=== PATIENT | male | born 1940 | race Caucasian/White ===

== ENCOUNTER 2016-09-16 16:14 | Emergency (ER) | payer MEDICARE ==
--- NOTE | 2016-09-16 16:27 | Emergency Department Report ---
ED Neuro Deficit HPI - General Chief Complaint: Weakness Stated Complaint: POSS CVA Time Seen by Provider: 09/16/16 16:15 Source: EMS Mode of arrival: Stretcher Limitations: Other - History of Present Illness Initial Comments: Patient is a 76-year-old male with history of CABG, permanent pacemaker, BPH, hypertension, hyperlipidemia presenting today because of possible stroke. Patient was sitting on the couch with family friends and slumped over to the left at 3:30 PM and they called EMS. EMS arrived and noticed that the patient had weakness in his left upper and left lower extremity. Per his family he was speaking at baseline. History here limited due to language barrier. However family had come and endorses patient has only left upper and lower extremity weakness. He has no history of trauma. Patient is on aspirin, but no Plavix or any anticoagulation. -: Sudden, minutes(s) (45 minutes ago) Time: 15:30 Location: left arm, left leg History of same: No Place: home Severity: moderate Quality: weak - Related Data Home Medications: Home Medications Medication Instructions Recorded Confirmed Last Taken Crestor 10 mg PO DAILY 09/16/16 09/16/16 1 Day Ago Dexlansoprazole [Dexilant] 60 mg PO QDAY 09/16/16 09/16/16 1 Day Ago Furosemide [Lasix] 20 mg PO QDAY 09/16/16 09/16/16 1 Day Ago Metformin HCl [Metformin HCl ER] 500 mg PO DAILY 09/16/16 09/16/16 1 Day Ago Metoclopramide HCl [Reglan TAB] 5 mg PO BID 09/16/16 09/16/16 1 Day Ago Omeprazole 40 mg PO DAILY 09/16/16 09/16/16 1 Day Ago Tamsulosin [Flomax] 0.4 mg PO QDAY 09/16/16 09/16/16 1 Day Ago Previous Rx's Medication Instructions Recorded Last Taken Type Aspirin EC [Aspirin Enteric Coated 325 mg PO QDAY #30 tablet 05/19/16 1 Day Ago Rx TAB] AtorvaSTATin [Lipitor] 20 mg PO QHS #30 tablet 05/19/16 1 Day Ago Rx Losartan [Cozaar] 50 mg PO QDAY #30 tablet 05/19/16 1 Day Ago Rx Metoprolol Xl [Metoprolol 50 mg PO QDAY #30 tablet 05/19/16 1 Day Ago Rx SUCCINATE ER TAB] Ranolazine ER [Ranexa ER] 500 mg PO BID #60 tablet 05/19/16 1 Day Ago Rx Allergies/Adverse Reactions: Allergies Allergy/AdvReac Type Severity Reaction Status Date / Time No Known Allergies Allergy Unverified 05/16/16 13:26 ED Review of Systems ROS: Stated complaint: POSS CVA Other details as noted in HPI Comment: All other systems reviewed and negative Constitutional: denies: see HPI, fever Respiratory: denies: cough, shortness of breath Gastrointestinal: denies: abdominal pain, vomiting Skin: denies: rash Psychiatric: denies: anxiety ED Past Medical Hx - Past Medical History Hx Hypertension: Yes Hx Diabetes: Yes Hx GERD: Yes Hx HIV: No Additional medical history: cardiomegaly,elevated cholesterol,enlarged prostate, CAD - Surgical History Hx Open Heart Surgery: Yes (CABG 2006) Additional Surgical History: heart cath 2011. Ejection Fraction LVEF 50% via echo 06/22/15 - Social History Smoking Status: Light Tobacco Smoker Substance Use Type: None - Medications Home Medications: Home Medications Medication Instructions Recorded Confirmed Last Taken Type Aspirin EC [Aspirin Enteric Coated 325 mg PO QDAY #30 tablet 05/19/16 09/16/16 1 Day Ago Rx TAB] AtorvaSTATin [Lipitor] 20 mg PO QHS #30 tablet 05/19/16 09/16/16 1 Day Ago Rx Losartan [Cozaar] 50 mg PO QDAY #30 tablet 05/19/16 09/16/16 1 Day Ago Rx Metoprolol Xl [Metoprolol 50 mg PO QDAY #30 tablet 05/19/16 09/16/16 1 Day Ago Rx SUCCINATE ER TAB] Ranolazine ER [Ranexa ER] 500 mg PO BID #60 tablet 05/19/16 09/16/16 1 Day Ago Rx Crestor 10 mg PO DAILY 09/16/16 09/16/16 1 Day Ago History Dexlansoprazole [Dexilant] 60 mg PO QDAY 09/16/16 09/16/16 1 Day Ago History Furosemide [Lasix] 20 mg PO QDAY 09/16/16 09/16/16 1 Day Ago History Metformin HCl [Metformin HCl ER] 500 mg PO DAILY 09/16/16 09/16/16 1 Day Ago History Metoclopramide HCl [Reglan TAB] 5 mg PO BID 09/16/16 09/16/16 1 Day Ago History Omeprazole 40 mg PO DAILY 09/16/16 09/16/16 1 Day Ago History Tamsulosin [Flomax] 0.4 mg PO QDAY 09/16/16 09/16/16 1 Day Ago History ED Neuro Physical Exam - General General appearance: alert Suspected Stroke: Yes - Head Head exam: Present: atraumatic - Eye Eye exam: Present: normal appearance Pupils: Present: normal accommodation - ENT ENT exam: Present: normal exam - Respiratory Respiratory exam: Present: normal lung sounds bilaterally. Absent: respiratory distress - Cardiovascular Cardiovascular Exam: Present: regular rate, normal rhythm, normal heart sounds - GI/Abdominal GI/Abdominal exam: Present: soft. Absent: distended, tenderness - Neurological Exam Neurological exam: Present: alert, CN II-XII intact, other (Mckay focal neurological deficits are 4 out of 5 strength in the left upper extremity proximally, 3 out of 5 strength in the left lower extremity) - NIHSS Assessment Interval: Baseline 1a. Level of Consciousness: alert 1b. LOC Questions: answers correctly 1c. LOC Commands: performs tasks correctly 2. Best Gaze: normal 3. Visual: no visual loss 4. Facial Palsy: normal symmetrical movement 5b. Motor Arm Right: no drift 5a. Motor Arm Left: some gravity effort 6a. Motor Leg Left: no gravity effort 6b. Motor Leg Right: no drift 7. Limb Ataxia: absent 8. Sensory: mild/moderate sensory loss 9. Best Language: no aphasia 10. Dysarthria: normal 11. Extinction/Inattention: no abnormality Total Score: 6 Stroke Severity: Moderate Stroke - Psychiatric Psychiatric exam: Present: normal affect - Skin Skin exam: Present: intact ED Course Vital Signs 09/16/16 09/16/16 09/16/16 16:31 16:45 17:00 Pulse Rate 68 67 82 Respiratory 16 14 16 Rate Blood Pressure 176/103 136/77 O2 Sat by Pulse 99 99 Oximetry 09/16/16 09/16/16 09/16/16 17:11 17:15 17:30 Pulse Rate 81 83 83 Respiratory 14 14 13 Rate Blood Pressure 133/76 133/76 137/79 O2 Sat by Pulse 97 97 99 Oximetry 09/16/16 09/16/16 17:45 17:49 Pulse Rate 80 83 Respiratory 14 11 L Rate Blood Pressure 150/82 150/82 O2 Sat by Pulse 99 98 Oximetry - Reevaluation(s) Reevaluation #1: 09/16/16 16:40 paged for transfer to neurosurgery at [place] Reevaluation #2: 09/16/16 16:53 Patient is hypertensive to around 190/110, Cardene drip ordered. Reevaluation #3: 09/16/16 16:[address] Hernandez at [facility], they have no neuro ICU beds available, paged transfer center for [facility] Reevaluation #4: 09/16/16 17:[address] Hernandez again, will have a neurosurgical bed available at 7 PM but that they will accept the patient for transfer to [facility]. Blood pressure improved with a systolic of 142. 09/16/16 17:15 Reevaluation #5: 09/16/16 19:02 Patient reassessed at bedside. As no acute changes in his mental status or neurological status. Blood pressure systolic of 151. EMS is here taking report revealed transfer the patient [facility]. - Consultations Consultation #1: 09/16/16 16:26 Spoke to neurologist web production assistant about patient's presentation, is planning to come to the ER to evaluate patient, patient currently in CT - Lab Data Result diagrams: 09/16/16 16:24 09/16/16 16:24 Lab Results 09/16/16 09/16/16 09/16/16 Range/Units 16:10 16:24 16:24 WBC 7.4 (4.5-11.0) K/mm3 RBC 5.90 H (3.65-5.03) M/mm3 Hgb 13.6 (11.8-15.2) gm/dl Hct 42.0 (35.5-45.6) % MCV 71 L (84-94) fl MCH 23 L (28-32) pg MCHC 32 (32-34) % RDW 15.7 H (13.2-15.2) % Plt Count 190 (140-440) K/mm3 Lymph % (Auto) 21.7 (13.4-35.0) % [place] % (Auto) 7.7 H (0.0-7.3) % Eos % (Auto) 3.1 (0.0-4.3) % Baso % (Auto) 0.7 (0.0-1.8) % Lymph # 1.6 (1.2-5.4) K/mm3 [place] # 0.6 (0.0-0.8) K/mm3 Eos # 0.2 (0.0-0.4) K/mm3 Baso # 0.1 (0.0-0.1) K/mm3 Seg Neutrophils % 66.8 (40.0-70.0) % Seg Neutrophils # 4.9 (1.8-7.7) K/mm3 PT 12.9 (12.2-14.9) Sec. INR 0.98 (0.87-1.13) APTT 34.2 (24.2-36.6) Sec. Thrombin Time (15.1-19.6) Sec. Sodium (137-145) mmol/L Potassium (3.6-5.0) mmol/L Chloride (98-107) mmol/L Carbon Dioxide (22-30) mmol/L Anion Gap mmol/L BUN (9-20) mg/dL Creatinine (0.8-1.5) mg/dL Estimated GFR ml/min BUN/Creatinine Ratio % Glucose (75-100) mg/dL Calcium (8.4-10.2) mg/dL Troponin T (0.00-0.029) ng/mL Blood Type B POSITIVE Antibody Screen Negative 09/16/16 09/16/16 Range/Units 16:24 16:24 WBC (4.5-11.0) K/mm3 RBC (3.65-5.03) M/mm3 Hgb (11.8-15.2) gm/dl Hct (35.5-45.6) % MCV (84-94) fl MCH (28-32) pg MCHC (32-34) % RDW (13.2-15.2) % Plt Count (140-440) K/mm3 Lymph % (Auto) (13.4-35.0) % [place] % (Auto) (0.0-7.3) % Eos % (Auto) (0.0-4.3) % Baso % (Auto) (0.0-1.8) % Lymph # (1.2-5.4) K/mm3 [place] # (0.0-0.8) K/mm3 Eos # (0.0-0.4) K/mm3 Baso # (0.0-0.1) K/mm3 Seg Neutrophils % (40.0-70.0) % Seg Neutrophils # (1.8-7.7) K/mm3 PT (12.2-14.9) Sec. INR (0.87-1.13) APTT (24.2-36.6) Sec. Thrombin Time 16.1 (15.1-19.6) Sec. Sodium 141 (137-145) mmol/L Potassium 3.9 (3.6-5.0) mmol/L Chloride 101.8 (98-107) mmol/L Carbon Dioxide 27 (22-30) mmol/L Anion Gap 16 mmol/L BUN 12 (9-20) mg/dL Creatinine 0.7 L (0.8-1.5) mg/dL Estimated GFR > 60 ml/min BUN/Creatinine Ratio 17.14 % Glucose 118 H (75-100) mg/dL Calcium 8.5 (8.4-10.2) mg/dL Troponin T < 0.010 (0.00-0.029) ng/mL Blood Type Antibody Screen - Medical Decision Making Evaluated Immediately at bedside upon patient arrival. There is a high suspicion for stroke. Plan is fingerstick, CT of head without contrast, labs, IV placement, neuro consult, stroke code has been called. CT reveals a right thalamic hemorrhage starting to extend into the right ventricle Critical Care Time: Yes Critical care time in (mins) excluding proc time.: 30 Critical care attestation.: If time is entered above; I have spent that time in minutes in the direct care of this critically ill patient, excluding procedure time. ED Disposition Clinical Impression: Nontraumatic thalamic hemorrhage Disposition: DC/TX SHORT-TERM GEN HOSP INPT Is pt being admited?: No Does the pt Need Aspirin: No Condition: Critical Time of Disposition: 17:15
[2016-09-16 16:33] LABS: INR 0.98 (0.87-1.13)
[2016-09-16 16:34] LABS: Partial Thromboplastin Time 34.2 Sec. (24.2-36.6)
[2016-09-16 16:36] LABS: Anion Gap 16 mmol/L; BUN/Creatinine Ratio 17.14; Basophils % (Auto) 0.7 % (0.0-1.8); Blood Urea Nitrogen 12 mg/dL (9-20); Calcium 8.5 mg/dL (8.4-10.2); Carbon Dioxide 27 mmol/L (22-30); Chloride 101.8 mmol/L (98-107); Eosinophils % (Auto) 3.1 % (0.0-4.3); Glucose 118 mg/dL (75-100); Hemoglobin 13.6 gm/dl (11.8-15.2); Mean Corpuscular HGB Conc 32 % (32-34); Mean Corpuscular Volume 71 fl (84-94); Platelet Count 190 K/mm3 (140-440); Potassium 3.9 mmol/L (3.6-5.0); Red Cell Distribution Width 15.7 % (13.2-15.2); Sodium 141 mmol/L (137-145); White Blood Count 7.4 K/mm3 (4.5-11.0)
[2016-09-16] MEDS ORDERED: CARDENE DRIP 40 MG/200 ML 200 ML ONE (16:38)
--- NOTE | 2016-09-16 16:42 | Cat Scan Report ---
FINAL REPORT EXAM: CT HEAD/BRAIN WO CON HISTORY: neuro deficits < 6hrs or sx present upon awakening , patient slumped over 45 minutes prior to arrival TECHNIQUE: CT examination of the head without IV contrast PRIORS: None. FINDINGS: The included paranasal sinuses are clear as are the mastoid air cells and middle ear cavities. No evidence of fracture or focal osseous lesion. Hyperdense material is suggestive of hemorrhage in the right thalamus with approximate transverse dimensions of a 22 x 30 mm. Margins are irregular. Adjacent slight low density suggestive of edema. There is associated slight mass effect on the posterior aspect of the right basal ganglia and right internal capsule posteriorly. Slight medial displacement of the [place]. Hemorrhage appears to extend from the medial margin into the atrium of the right lateral ventricle. A small amount of ventricular hemorrhage is also noted in the right occipital horn. A small focus of hypodensity in the right caudate head is suggestive of old chronic lacunar infarct. No definite midline shift of the septum pellucidum. Prominent sulci and ventricles is suggestive of global brain atrophy. IMPRESSION: Large right thalamic hemorrhage with suggestion of slight blood extending into the right lateral ventricle. Mass effect on the adjacent right mid brain At the time of the signed report, I discussed the findings over the phone with Dr Elise.
[2016-09-16 16:46] LABS: Mean Corpuscular Hemoglobin 23 pg (28-32)
[2016-09-16] MEDS ORDERED: CARDENE DRIP 40 MG/200 ML 200 ML IV SCH (17:00)
[2016-09-16 19:12] VITALS: BP 143/84
== END 2016-09-16 19:21 | disposition short-term general hospital (02) ==
LOC: ED 16:14
DX: I61.9 Nontraumatic intracerebral hemorrhage, unspecified (principal); E11.9 Type 2 diabetes mellitus without complications; I10 Essential (primary) hypertension; K21.9 Gastro-esophageal reflux disease without esophagitis; E78.00 Pure hypercholesterolemia, unspecified; Z72.0 Tobacco use; Z79.82 Long term (current) use of aspirin; Z95.1 Presence of aortocoronary bypass graft
CPT/HCPCS: 36415; 70450; 80048; 84484; 85025; 85610; 85670; 85730; 86850; 86900; 86901; 96365; 96366

== ENCOUNTER 2016-10-28 06:24 | Emergency (ER) | payer MEDICARE ==
[2016-10-28 07:31] LABS: Anion Gap 18 mmol/L; BUN/Creatinine Ratio 27.77; Blood Urea Nitrogen 25 mg/dL (9-20); Calcium 9.1 mg/dL (8.4-10.2); Carbon Dioxide 25 mmol/L (22-30); Chloride 98.9 mmol/L (98-107); Glucose 128 mg/dL (75-100); Potassium 4.6 mmol/L (3.6-5.0); Sodium 137 mmol/L (137-145)
[2016-10-28 07:43] LABS: Basophils % (Auto) 0.7 % (0.0-1.8); Eosinophils % (Auto) 4.9 % (0.0-4.3); Hematocrit 41.4 % (35.5-45.6); Hemoglobin 13.2 gm/dl (11.8-15.2); Mean Corpuscular HGB Conc 32 % (32-34); Mean Corpuscular Hemoglobin 23 pg (28-32); Mean Corpuscular Volume 72 fl (84-94); Platelet Count 223 K/mm3 (140-440); Red Blood Count 5.77 M/mm3 (3.65-5.03); Red Cell Distribution Width 14.4 % (13.2-15.2); White Blood Count 6.8 K/mm3 (4.5-11.0)
--- NOTE | 2016-10-28 09:29 | Emergency Department Report ---
HPI - General Chief Complaint: Weakness Time Seen by Provider: 10/28/16 08:49 - HPI HPI: Chief complaint: Nausea and feeling weak HPI: Patient is 76-year-old [place] male with a history of coronary artery disease status post CABG 2006, elevated cholesterol, hypertension, diabetes, GERD who was seen here with a hemorrhagic stroke approximately one month ago and was transferred to [facility] and was just discharged yesterday. Patient had a G-tube placed and was getting continuous feedings until he went home. Patient now has been getting bolus feedings and feels nauseated when he gets a bolus feeding. No other symptoms. Language line when she is by the nursing staff to collect information but then a family member appeared who could speak Bulgarian a more accurate history was obtained. Mode of arrival: [EMS] Source: [Patient] [old chart] [family member] Began: See above Duration: See above Context: See above Quality: Pain-free Severity: 0 out of 10 Improved with: Nothing Worsened with: 2 feedings Associated signs and symptoms: Nausea ED Past Medical Hx - Past Medical History Hx Hypertension: Yes Hx Diabetes: Yes Hx GERD: Yes Hx HIV: No Additional medical history: cardiomegaly,elevated cholesterol,enlarged prostate, CAD - Surgical History Hx Open Heart Surgery: Yes (CABG 2006) Additional Surgical History: heart cath 2011. Ejection Fraction LVEF 50% via echo 06/22/15 - Social History Smoking Status: Unknown if ever smoked - Medications Home Medications: Home Medications Medication Instructions Recorded Confirmed Last Taken Type Aspirin EC [Aspirin Enteric Coated 325 mg PO QDAY #30 tablet 05/19/16 09/16/16 1 Day Ago Rx TAB] AtorvaSTATin [Lipitor] 20 mg PO QHS #30 tablet 05/19/16 09/16/16 1 Day Ago Rx Losartan [Cozaar] 50 mg PO QDAY #30 tablet 05/19/16 09/16/16 1 Day Ago Rx Metoprolol Xl [Metoprolol 50 mg PO QDAY #30 tablet 05/19/16 09/16/16 1 Day Ago Rx SUCCINATE ER TAB] Ranolazine ER [Ranexa ER] 500 mg PO BID #60 tablet 05/19/16 09/16/16 1 Day Ago Rx Crestor 10 mg PO DAILY 09/16/16 09/16/16 1 Day Ago History Dexlansoprazole [Dexilant] 60 mg PO QDAY 09/16/16 09/16/16 1 Day Ago History Furosemide [Lasix] 20 mg PO QDAY 09/16/16 09/16/16 1 Day Ago History Metformin HCl [Metformin HCl ER] 500 mg PO DAILY 09/16/16 09/16/16 1 Day Ago History Metoclopramide HCl [Reglan TAB] 5 mg PO BID 09/16/16 09/16/16 1 Day Ago History Omeprazole 40 mg PO DAILY 09/16/16 09/16/16 1 Day Ago History Tamsulosin [Flomax] 0.4 mg PO QDAY 09/16/16 09/16/16 1 Day Ago History ED Review of Systems ROS: Stated complaint: WEAKNESS Other details as noted in HPI Comment: Unobtainable due to pts medical conditions (language barrier) Physical Exam - Physical Exam Vital Signs: Vital Signs 10/28/16 10/28/16 06:49 08:58 Temperature 98.3 F Pulse Rate 74 73 Respiratory 18 16 Rate Blood Pressure 107/63 117/72 [Right] O2 Sat by Pulse 96 100 Oximetry Physical Exam: GENERAL: The patient is a thin [place] elderly male. HEENT: Normocephalic. Atraumatic. Extraocular motions are intact. Patient has moist mucous membranes. NECK: Supple. No meningitic signs are noted. There is no adenopathy noted. CHEST/LUNGS: Clear to auscultation. There is no respiratory distress noted. HEART/CARDIOVASCULAR: Regular. There is no tachycardia. There is no gallop rub or murmur. ABDOMEN: Abdomen is soft, nontender. Patient has normal bowel sounds. There is no abdominal distention. G-tube in place. SKIN: There is no rash. There is no edema. There is no diaphoresis. NEURO: The patient is awake, alert. The patient is cooperative. The patient has mild left hemiparesis. The patient speaks some broken Bulgarian. MUSCULOSKELETAL: There is no tenderness or deformity. There is no evidence of acute injury. ED Course Vital Signs 10/28/16 10/28/16 06:49 08:58 Temperature 98.3 F Pulse Rate 74 73 Respiratory 18 16 Rate Blood Pressure 107/63 117/72 [Right] O2 Sat by Pulse 96 100 Oximetry ED Medical Decision Making - Lab Data Result diagrams: 10/28/16 06:58 10/28/16 06:58 Laboratory Tests 10/28/16 06:58 Calcium 9.1 Troponin T < 0.010 NT-Pro-B Natriuret Pep 435.5 - EKG Data -: EKG Interpreted by Me EKG shows normal: sinus rhythm Rate: normal (67) - EKG Data When compared to previous EKG there are: no significant change Interpretation: other (first-degree AV block, anterior lateral T-wave inversions seen on previous EKGs) Critical care attestation.: If time is entered above; I have spent that time in minutes in the direct care of this critically ill patient, excluding procedure time. ED Disposition Clinical Impression: G tube feedings Vomiting Qualifiers: Vomiting Intractability: unspecified Nausea presence: unspecified Disposition: DISCHARGED TO HOME OR SELFCARE Is pt being admited?: No Does the pt Need Aspirin: No Condition: Stable Instructions: How to Use and Care for Your PEG Tube (ED), Acute Nausea and Vomiting (ED), Tube Feeding (ED) Referrals: PRIMARY CARE, [Primary Care Provider] - 3-5 Days Time of Disposition: 09:29 Print Language: AUSTRALIAN
--- NOTE | 2016-10-28 09:42 | XRay Report ---
G-TUBE STUDY History: Vomiting. Findings: AP beaver trapper radiograph of the abdomen demonstrates a PEG tube in the left upper quadrant and an unremarkable bowel gas pattern. A second image was obtained following injection of oral contrast through the PEG tube. Contrast outlines the stomach and proximal duodenum. There is no obvious mass or obstruction. No extravasation. Impression: Unremarkable exam. The PEG tube terminates in the stomach and demonstrates no obvious abnormality.
--- NOTE | 2016-10-28 09:51 | XRay Report ---
AP CHEST: HISTORY: Weakness Compared to 05/17/16. CABG changes are again noted. Heart size and pulmonary vascularity remain at the upper limits of normal. The lungs are clear. The thoracic cage is intact. Circular radiopaque object measuring approximately 3 cm overlies the epigastric region. This appears to be external to the patient. IMPRESSION: No acute cardiopulmonary process.
[2016-10-28 10:26] VITALS: BP 116/75
== END 2016-10-28 11:25 | disposition home or self-care (01) ==
LOC: ED 06:24
DX: R11.10 Vomiting, unspecified (principal); I10 Essential (primary) hypertension; E11.9 Type 2 diabetes mellitus without complications; K21.9 Gastro-esophageal reflux disease without esophagitis; E78.00 Pure hypercholesterolemia, unspecified; I25.10 Atherosclerotic heart disease of native coronary artery without angina pectoris; Z93.1 Gastrostomy status; Z95.1 Presence of aortocoronary bypass graft
CPT/HCPCS: 36415; 71010; 74000; 80048; 83880; 84484; 85025; 93005; 93010; 99285; Q9963

== ENCOUNTER 2016-12-07 04:29 | Inpatient (IN) | payer MEDICARE ==
--- NOTE | 2016-12-07 06:28 | Emergency Department Report ---
ED General Adult HPI - General Chief complaint: Upper Respiratory Infection Stated complaint: DIFFICULTY BREATHING Time Seen by Provider: 12/07/16 06:21 Source: EMS Mode of arrival: Stretcher Limitations: No Limitations - History of Present Illness Initial comments: 76-year-old male presents to emergency department complaining of chest pain and difficulty breathing. Patient describes a pain in the lower center of his chest. He is unable to describe this pain. Pain does not radiate. He states the pain has been present for approximately 3 months. He also reports cough productive of yellow sputum. There has been no fever, nausea, or vomiting. There are no other complaints. -: Gradual, month(s) (3) Location: chest Radiation: non-radiation Severity scale (0 -10): 3 Consistency: constant Improves with: none Worsens with: none Associated Symptoms: cough, shortness of breath Treatments Prior to Arrival: none - Related Data Previous Rx's Medication Instructions Recorded Last Taken Type ALBUTEROL NEB's [Proventil 0.083% 2.5 mg IH Q4HRT PRN #1 nebu 12/04/16 Unknown Rx NEBS] Aspirin EC [Aspirin Enteric Coated 325 mg PO QDAY #30 tablet 12/04/16 Unknown Rx TAB] AtorvaSTATin [Lipitor] 20 mg PO QHS #30 tablet 12/04/16 Unknown Rx Dexlansoprazole [Dexilant] 60 mg PO QDAY #30 cap.bp 12/04/16 Unknown Rx Furosemide [Lasix TAB] 40 mg PO QDAY #30 tablet 12/04/16 Unknown Rx ISOSORBIDE MONOnitrate [Imdur ER] 30 mg PO DAILY #30 tab.er.24h 12/04/16 Unknown Rx Losartan [Cozaar] 50 mg PO QDAY #30 tablet 12/04/16 Unknown Rx Metformin HCl [Metformin HCl ER] 500 mg PO DAILY #60 [id number] 12/04/16 Unknown Rx Metoclopramide HCl [Reglan TAB] 5 mg PO BID #60 tablet 12/04/16 Unknown Rx Metoprolol Xl [Metoprolol 50 mg PO QDAY #30 tablet 12/04/16 Unknown Rx SUCCINATE ER TAB] Omeprazole 40 mg PO DAILY #30 capsule. 12/04/16 Unknown Rx Potassium Chloride [K-Dur] 10 meq PO QDAY #30 tablet 12/04/16 Unknown Rx Ranolazine ER [Ranexa ER] 500 mg PO BID #60 tablet 12/04/16 Unknown Rx Tamsulosin [Flomax] 0.4 mg PO QDAY #30 capsule 12/04/16 Unknown Rx predniSONE [Deltasone] 20 mg PO QDAY #10 tablet 12/04/16 Unknown Rx Allergies Allergy/AdvReac Type Severity Reaction Status Date / Time No Known Allergies Allergy Unverified 05/16/16 13:26 ED Review of Systems ROS: Stated complaint: DIFFICULTY BREATHING Other details as noted in HPI Comment: All other systems reviewed and negative Respiratory: cough, shortness of breath Cardiovascular: chest pain ED Past Medical Hx - Past Medical History Previous Medical History?: Yes Hx Hypertension: Yes Hx CVA: Yes Hx Diabetes: Yes Hx GERD: Yes Hx HIV: No Additional medical history: cardiomegaly,elevated cholesterol,enlarged prostate, CAD - Surgical History Past Surgical History?: Yes Hx Open Heart Surgery: Yes (CABG 2006) Hx Internal Defibrillator: Yes Additional Surgical History: heart cath 2011. Ejection Fraction LVEF 50% via echo 06/22/15 - Family History Family history: no significant - Social History Smoking Status: Unknown if ever smoked Substance Use Type: None - Medications Home Medications: Home Medications Medication Instructions Recorded Confirmed Last Taken Type ALBUTEROL NEB's [Proventil 0.083% 2.5 mg IH Q4HRT PRN #1 nebu 12/04/16 Unknown Rx NEBS] Aspirin EC [Aspirin Enteric Coated 325 mg PO QDAY #30 tablet 12/04/16 Unknown Rx TAB] AtorvaSTATin [Lipitor] 20 mg PO QHS #30 tablet 12/04/16 Unknown Rx Dexlansoprazole [Dexilant] 60 mg PO QDAY #30 [id number] 12/04/16 Unknown Rx Furosemide [Lasix TAB] 40 mg PO QDAY #30 tablet 12/04/16 Unknown Rx ISOSORBIDE MONOnitrate [Imdur ER] 30 mg PO DAILY #30 tab.er.24h 12/04/16 Unknown Rx Losartan [Cozaar] 50 mg PO QDAY #30 tablet 12/04/16 Unknown Rx Metformin HCl [Metformin HCl ER] 500 mg PO DAILY #60 [id number] 12/04/16 Unknown Rx Metoclopramide HCl [Reglan TAB] 5 mg PO BID #60 tablet 12/04/16 Unknown Rx Metoprolol Xl [Metoprolol 50 mg PO QDAY #30 tablet 12/04/16 Unknown Rx SUCCINATE ER TAB] Omeprazole 40 mg PO DAILY #30 capsule. 12/04/16 Unknown Rx Potassium Chloride [K-Dur] 10 meq PO QDAY #30 tablet 12/04/16 Unknown Rx Ranolazine ER [Ranexa ER] 500 mg PO BID #60 tablet 12/04/16 Unknown Rx Tamsulosin [Flomax] 0.4 mg PO QDAY #30 capsule 12/04/16 Unknown Rx predniSONE [Deltasone] 20 mg PO QDAY #10 tablet 12/04/16 Unknown Rx ED Physical Exam - General Limitations: No Limitations General appearance: alert, in no apparent distress - Head Head exam: Present: atraumatic, normocephalic - Eye Eye exam: Present: normal appearance, PERRL, EOMI - ENT ENT exam: Present: normal exam, normal orophraynx, mucous membranes moist - Neck Neck exam: Present: normal inspection, full ROM. Absent: tenderness - Respiratory Respiratory exam: Present: normal lung sounds bilaterally. Absent: respiratory distress - Cardiovascular Cardiovascular Exam: Present: regular rate, normal rhythm, normal heart sounds - GI/Abdominal GI/Abdominal exam: Present: soft, normal bowel sounds. Absent: distended, tenderness - Extremities Exam Extremities exam: Present: normal inspection, full ROM. Absent: tenderness - Back Exam Back exam: Present: normal inspection, full ROM. Absent: tenderness - Neurological Exam Neurological exam: Present: alert, oriented X3. Absent: motor sensory deficit - Skin Skin exam: Present: warm, dry, intact ED Course Vital Signs 12/07/16 12/07/16 12/07/16 04:36 04:40 04:45 Temperature Pulse Rate 80 78 Respiratory 13 16 Rate Blood Pressure 87/58 96/59 Blood Pressure [Left] O2 Sat by Pulse 97 98 97 Oximetry 12/07/16 12/07/16 05:00 07:43 Temperature 97.7 F Pulse Rate 83 79 Respiratory 16 16 Rate Blood Pressure 104/61 Blood Pressure 96/60 [Left] O2 Sat by Pulse 99 96 Oximetry ED Medical Decision Making - Lab Data Result diagrams: 12/07/16 06:38 12/07/16 06:38 - EKG Data -: EKG Interpreted by [facility] EKG shows normal: sinus rhythm, axis, intervals, QRS complexes Rate: normal - EKG Data When compared to previous EKG there are: changes noted Interpretation: other (new T-wave inversions in leads 1, aVL, V3, V4, V5, and V6 when compared to old ECG dated 11/28/2016) - Radiology Data Radiology results: image reviewed interpreted by me: Chest x-ray shows no acute cardiopulmonary abnormality. - Medical Decision Making Lab and imaging results reviewed and discussed with the patient. Patient does have EKG changes compared to previous. I spoke with Dr. Hernandez, cardiology. Patient is to be admitted by the hospitalist for observation and further management. - Differential Diagnosis atypical chest pain, pneumonia, bronchitis, CHF Critical care attestation.: If time is entered above; I have spent that time in minutes in the direct care of this critically ill patient, excluding procedure time. ED Disposition Clinical Impression: Ischemic cardiomyopathy Disposition: OP ADMITTED IP TO THIS HOSP Is pt being admited?: Yes Condition: Stable Referrals: CRIS CAMEJO MD [Primary Care Provider] - 3-5 Days Time of Disposition: 08:40
[2016-12-07 06:50] LABS: Basophils % (Auto) 0.4 % (0.0-1.8); Eosinophils % (Auto) 1.9 % (0.0-4.3); Hematocrit 39.5 % (35.5-45.6); Hemoglobin 12.7 gm/dl (11.8-15.2); Mean Corpuscular HGB Conc 32 % (32-34); Mean Corpuscular Volume 71 fl (84-94); Platelet Count 221 K/mm3 (140-440); Red Blood Count 5.55 M/mm3 (3.65-5.03); Red Cell Distribution Width 15.7 % (13.2-15.2); White Blood Count 10.4 K/mm3 (4.5-11.0)
[2016-12-07 06:57] LABS: Mean Corpuscular Hemoglobin 23 pg (28-32)
[2016-12-07 07:13] LABS: Alanine Aminotransferase 17 units/L (7-56); Albumin/Globulin Ratio 1.3 %; BUN/Creatinine Ratio 32.85; Bilirubin,Total 0.4 mg/dL (0.1-1.2); Blood Urea Nitrogen 23 mg/dL (9-20); Calcium 8.5 mg/dL (8.4-10.2); Carbon Dioxide 30 mmol/L (22-30); Glucose 117 mg/dL (75-100); Total Protein 5.3 g/dL (6.3-8.2)
[2016-12-07 07:14] LABS: Anion Gap 10 mmol/L; Chloride 98.5 mmol/L (98-107); Potassium 3.8 mmol/L (3.6-5.0); Sodium 135 mmol/L (137-145)
--- NOTE | 2016-12-07 08:16 | XRay Report ---
AP CHEST: HISTORY: chest pain AP view of the chest demonstrates a normal mediastinal and cardiac contour with clear lungs and normal bony and soft tissue structures. CABG changes are noted. IMPRESSION: No acute cardiopulmonary process.
[2016-12-07 08:36] LABS: Alkaline Phosphatase 49 units/L (35-129)
--- NOTE | 2016-12-07 08:41 | History and Physical Report ---
History of Present Illness Date of examination: 12/07/16 Date of admission: 12/07/16 Chief complaint: Left Sided chest pain and shortness of breath History of present illness: Very pleasant 76-year-old male patient well known to us services multiple admissions in the past recently discharged presented to the emergency room with worsening shortness of breath and atypical chest pain since last night Patient also complains of mild productive cough, denies hemoptysis Pain sometimes radiates to left shoulder Past History Past Medical History: CAD, COPD, diabetes, GERD, hypertension, hyperlipidemia Past Surgical History: CABG, Other (AICD) Social history: lives with family, full code. denies: smoking, alcohol abuse, prescription drug abuse Family history: hypertension Medications and Allergies Allergies Allergy/AdvReac Type Severity Reaction Status Date / Time No Known Allergies Allergy Unverified 05/16/16 13:26 Home Medications Medication Instructions Recorded Confirmed Last Taken Type ALBUTEROL NEB's [Proventil 0.083% 2.5 mg IH Q4HRT PRN #1 nebu 12/04/16 Unknown Rx NEBS] Aspirin EC [Aspirin Enteric Coated 325 mg PO QDAY #30 tablet 12/04/16 Unknown Rx TAB] AtorvaSTATin [Lipitor] 20 mg PO QHS #30 tablet 12/04/16 Unknown Rx Dexlansoprazole [Dexilant] 60 mg PO QDAY #30 cap.bp 12/04/16 Unknown Rx Furosemide [Lasix TAB] 40 mg PO QDAY #30 tablet 12/04/16 Unknown Rx ISOSORBIDE MONOnitrate [Imdur ER] 30 mg PO DAILY #30 tab.er.24h 12/04/16 Unknown Rx Losartan [Cozaar] 50 mg PO QDAY #30 tablet 12/04/16 Unknown Rx Metformin HCl [Metformin HCl ER] 500 mg PO DAILY #60 [id number] 12/04/16 Unknown Rx Metoclopramide HCl [Reglan TAB] 5 mg PO BID #60 tablet 12/04/16 Unknown Rx Metoprolol Xl [Metoprolol 50 mg PO QDAY #30 tablet 12/04/16 Unknown Rx SUCCINATE ER TAB] Omeprazole 40 mg PO DAILY #30 capsule. 12/04/16 Unknown Rx Potassium Chloride [K-Dur] 10 meq PO QDAY #30 tablet 12/04/16 Unknown Rx Ranolazine ER [Ranexa ER] 500 mg PO BID #60 tablet 12/04/16 Unknown Rx Tamsulosin [Flomax] 0.4 mg PO QDAY #30 capsule 12/04/16 Unknown Rx predniSONE [Deltasone] 20 mg PO QDAY #10 tablet 12/04/16 Unknown Rx Review of Systems Constitutional: weakness, no weight loss, no weight gain, no fever, no chills Eyes: bilateral: blurred vision (no blurring of vision), photophobia ( photophobia) Ears, nose, mouth and throat: no nasal congestion, no nasal discharge Cardiovascular: chest pain, orthopnea, lightheadedness, shortness of breath, no palpitations Respiratory: shortness of breath, no cough with sputum Gastrointestinal: no abdominal pain, no nausea, no vomiting Genitourinary Male: no dysuria, no hematuria Musculoskeletal: no myalgias, no arthritis Integumentary: no rash, no lesions Neurological: no weakness, no numbness, no syncope Psychiatric: no anxiety, no depression Endocrine: no cold intolerance, no heat intolerance, no polydipsia, no polyuria Hematologic/Lymphatic: no easy bruising, no easy bleeding Allergic/Immunologic: no urticaria, no allergic rhinitis Exam - Constitutional Vitals: Temp Pulse Resp BP Pulse Ox 97.7 F 79 16 96/60 96 12/07/16 05:00 12/07/16 07:43 12/07/16 07:43 12/07/16 07:43 12/07/16 07:43 General appearance: Present: no acute distress, cachectic - EENT Eyes: Present: PERRL, EOM intact ENT: hearing intact, clear oral mucosa - Neck Neck: Present: supple, normal ROM - Respiratory Respiratory effort: normal Respiratory: bilateral: diminished, rales, rhonchi - Cardiovascular Rhythm: regular Heart Sounds: Present: S1 & S2 - Extremities Extremities: no ischemia, pulses intact, pulses symmetrical Extremity abnormal: edema Peripheral Pulses: within normal limits - Abdominal General gastrointestinal: Present: soft, non-tender, non-distended, normal bowel sounds - Integumentary Integumentary: Present: clear, warm - Musculoskeletal Musculoskeletal: strength equal bilaterally - Psychiatric Psychiatric: appropriate mood/affect, cooperative - Neurologic Neurologic: moves all extremities Results - Labs CBC & Chem 7: 12/07/16 06:38 12/07/16 06:38 Labs: Abnormal lab results 12/07/16 12/07/16 Range/Units 06:38 06:38 RBC 5.55 H (3.65-5.03) M/mm3 MCV 71 L (84-94) fl MCH 23 L (28-32) pg RDW 15.7 H (13.2-15.2) % Seg Neutrophils % 75.2 H (40.0-70.0) % Seg Neutrophils # 7.8 H (1.8-7.7) K/mm3 Sodium 135 L (137-145) mmol/L BUN 23 H (9-20) mg/dL Creatinine 0.7 L (0.8-1.5) mg/dL Glucose 117 H (75-100) mg/dL Total Protein 5.3 L (6.3-8.2) g/dL Albumin 3.0 L (3.9-5) g/dL Assessment and Plan --Chest chest pain rule out acute coronary syndrome Specific probably secondary to gastroesophageal reflux disease However rule out acute coronary syndrome Resume home medications closely monitor cardiology consultation --Coronary artery disease status post CABG Continue antiplatelets beta blockers SAFIA inhibitor snacked it statins and Morphine, serial cardiac enzymes and EKG --Gastroesophageal reflux disease Oral Protonix --Type 2 diabetes mellitus Accu-Chek sliding scale coverage and ADA diet and insulin as needed --History of AICD placement Supportive care --Ischemic cardiomyopathy Systolic dysfunction, ejection fraction 15-20% Continue failure medications, input-output monitoring Daily weights -- COPD Oxygen nebulizers and supportive care --Moderate protein calorie malnutrition Nutrition supplements and supportive care --DVT prophylaxis With Lovenox --Full CODE STATUS Full closely monitor the patient adjust the management as needed Plan of care discussed with the patient, ER physician as well as the nurse
[2016-12-07] MEDS ORDERED: TYLENOL PO PRN (08:45)
[2016-12-07] MEDS ORDERED: PROVENTIL IH PRN (09:00)
--- NOTE | 2016-12-07 09:41 | Admit Criteria Form ---
Admission Criteria Documentation: CARDIOLOGY GRG Clinical Indications for Admission to Inpatient Care ( Place 'X' for any and all applicable criteria): Hospital admission is needed for appropriate care of the patient because of ANY ONE of the following (1): [ ] I. Hemodynamic instability as indicated by ALL of the following (1)(2)(3) (4)(5) [ ]a) Vital signs or other findings not as expected for chronic patient condition or baseline [ ]b) Instability indicated by ANY ONE of the following: [ ]i) Hypotension [ ]ii) Symptomatic Tachycardia unresponsive to treatment ( e.g., analgesia, fluids, sedation as indicated) [ ]iii) Inadequate perfusion indicated by ANY ONE of the following: [ ] 1) Lactic acidosis (> 2 mmol/L) [ ] 2) New abnormal capillary refill (> 3 seconds) [ ] 3) Reduced urine output [ ] 4) New altered mental status [ ]iv) Orthostatic vital sign changes unresponsive to treatment (e.g., fluids) [ ]v) IV inotropic or vasopressor medication required to maintain adequate blood pressure or perfusion [ ] II. Severe heart failure as indicated by ANY ONE of the following(17)(18) [ ]a) Respiratory distress [ ]b) Hypotension [ ]c) Anasarca (refractory to outpatient therapy) [ ]d) Cardiac arrhythmias of immediate concern [ ]e) Myocardial ischemia [ ] III. Cardiac arrhythmias or findings of immediate concern indicated by ANY ONE of the following (19)(20): [ ] a) Heart rhythms that are inherently dangerous or unstable indicated by ANY ONE of the following (21)(22)(23): [ ] i) Resuscitated ventricular fibrillation or cardiac arrest [ ] ii) Ventricular escape rhythm [ ] iii) Sustained ventricular tachycardia (30 seconds or more of ventricular rhythm at greater than 100 beats per minute) [ ] iv) Nonsustained ventricular tachycardia and ANY ONE of the following: [ ] 1) Suspected cardiac ischemia as cause or consequence of ventricular tachycardia [ ] 2) In setting of acute myocarditis [ ] b) Unstable cardiac conduction defects indicated by ANY ONE of the following(23)(24)(25) [ ] i) Type II second-degree atrioventricular block [ ]ii) Third-degree atrioventricular block [ ]iii) New-onset left bundle branch block with suspected myocardial ischemia [ ]c) Any heart rhythm and ANY ONE of the following (21)(22)(26)(27) (28) [ ] i) Continuous long-term ECG monitoring needed (e.g., initiation of drug requiring monitoring for more than 24 hours) [ ] ii) Patient has automatic implanted cardioverter defibrillator that is repeatedly firing, malfunctioning, or in need of immediate adjustment of settings beyond the scope of ambulatory or observation care [ ]d) Heart rhythms of concern due to ANY ONE of the following: [ ] i) Hypotension [ ] ii) Respiratory distress [ ] iii) Association with other significant symptoms (e.g., bradycardia with syncope or ongoing dizziness, supraventricular tachycardia with chest pain (14)(15)(17) [ ] IV. Monitoring for cardiac contusion beyond the scope of observation care needed [A](30)(31)(32) [ ] V. Surgical or device complication (e.g., valve replacement complication , pacemaker dysfunction) (35)(41)(44)(45)(46) [ ] . Inpatient palliative care needed. [B](49) Also use Inpatient Palliative Care Criteria [ ] VII. Nonbacterial thrombotic (marantic) endocarditis (36)(43)(47)(48) [X ] VIII. Cardiology condition, symptom, or finding for which emergency and observation care has failed or are not considered appropriate. [ ] IX. Acute valvular disease requiring inpatient as indicated by ANY ONE of the following (41) [ ]a) Acute valvular regurgitation (42) [ ]b) Noninfectious valvulitis (43) [ ]c) Obstructive valve thrombosis [ ]d) Paravalvular leak [ ]e) Other significant valvular disorder remaining after emergency or observation level of care (as appropriate) [ ]X. Pericardial disease requiring inpatient treatment as indicated by ANY ONE of the following (33)(34)(35)(36)(37) [ ]a) Suspected tamponade (38)(39)(40) [ ]b) Hemopericardium [ ]c) Other significant pericardial disorder remaining after emergency or observation level of care (as appropriate) [ ] XI. Cardiac ischemia beyond scope of emergency and observation care. [ ] XII. Hypertension requiring inpatient treatment as indicated by ANY ONE of the following (6)(7)(8) [ ]a) SBP greater than 220 mm Hg or DBP greater than 120 mmHg despite treatment [ ]b) SBP greater than 140 mm Hg or DBP greater than 100 mm Hg with evidence of acute end organ damage as indicated by ANY ONE of the following [ ] i) Altered mental status [ ] ii) Acute renal failure as indicated by new onset of ANY ONE of the following (9)(10)(11)(12)(13) [ ]1) 3-fold rise in serum creatinine from baseline [ ]2) Serum creatinine greater than 4 mg/dL ( 354 micromoles/L) with acute rise greater than 0.5 mg/dL (44.2 micromoles/L) [ ]3) Reduction of more than 75% in estimated glomerular filtration rate from baseline [ ]4) Estimated glomerular filtration rate less than 35 mL/min/1.73m2 (0.59 mL/sec/1.73m2) in child up to 18 years of age [ ]5) Cessation of urine output indicated by ALL of the following [ ]A. Adequate volume status [ ]B. Inadequate urine output as indicated by ANY ONE of the following [ ]a. Urine output less than 0.3 mL/kg/hr for 24 hours [ ]b. Anuria (urine output less than 0.1 mL/kg/hr) for 12 hours [ ] iii) Aortic dissection [ ] iv) Myocardial Ischemia [ ] v) Left ventricular heart failure [ ]vi) Retinal Hemorrhage [ ]vii) Other significant finding [ ]c) Hypertension in child requiring inpatient treatment as indicated by ALL of the following(14)(15)(16) [ ] i) Outpatient treatment not effective, not available, or not appropriate [ ]ii) SBP or DBP greater than 95th percentile for age [ ]iii) Evidence of acute end organ damage as indicated by ANY ONE of the following [ ]1) Altered mental status [ ]2) Acute renal failure as indicated by new onset of ANY ONE of the following(9)(10)(11)(12)(13) [ ]A. 3-fold rise in serum creatinine from baseline [ ]B. Serum creatinine greater than 4 mg/dL (354 micromoles/L) with acute rise greater than 0.5 mg/dL (44.2 micromoles/L) [ ]C. Reduction of more than 75% in estimated glomerular filtration rate from baseline [ ]D. Estimated glomerular filtration rate less than 35 mL/min/1.73m2 (0.59 mL/sec/1.73m2) in child up to 18 years of age [ ]E. Cessation of urine output indicated by ALL of the following [ ]a. Adequate volume status [ ]b. Inadequate urine output as indicated by ANY ONE of the following [ ]i) Urine output less than 0.3 mL/kg/hr for 24 hours [ ]ii) Anuria ( urine output less than 0.1 mL/kg/hr) for 12 hours [ ]3) Severe headache [ ]4) Visual disturbance [ ]5) Retinal hemorrhage [ ]6) Other significant finding [ ]XIII. Complications of transplanted heart indicated by ANY ONE of the following(61): [ ]a) Acute graft rejection requiring inpatient management (eg, intravenous immunosuppression)(62)(63) [ ]b) Acute graft heart failure indicated by ANY ONE of the following(64): [ ]i) Hemodynamic instability [ ]ii) Cardiac arrhythmias of immediate concern [ ]iii) Pulmonary edema that is very severe (eg, mechanical ventilation needed, imminent or likely, need for 100% oxygen to keep oxygen saturation above 90%) [ ]iv) Pulmonary edema that is persistent as indicated by ALL of the following: [ ]1) New need for oxygen therapy to keep oxygen saturation above 90% (or increased FiO2 need from baseline) [ ]2) Has not improved sufficiently with emergency department or observation care IV diuretics or other heart failure treatments[E] [ ]v) Altered mental status that is severe or persistent [ ]vi) Increased creatinine (new on laboratory test) with reduction of more than 50% in estimated glomerular filtration rate from baseline [ ]vii) Progressively (ongoing) rising creatinine (known from past laboratory test) with reduction of more than 25% in estimated glomerular filtration rate from baseline [ ]viii) Acute renal failure [ ]ix) Acute peripheral ischemia (eg, examination shows pulseless, cool, mottled, or cyanotic extremity) [ ]x) Pulmonary artery catheter monitoring needed [ ]xi) Other sign or symptom of heart failure requiring inpatient treatment (ie, too severe or not responsive to outpatient and observation care treatment) [ ]c) Infection requiring inpatient management (eg, Hemodynamic instability, need for intravenous antimicrobial treatment)(66)(67)(68)(69)(70) [ ]d) Cardiac allograft vasculopathy requiring inpatient management ( eg evidence of cardiac ischemia)(71) [ ]e) Other complication of transplanted heart (eg, stroke, severe pulmonary hypertension, severe valvular dysfunction) requiring inpatient management(72) The original [facility] [employer] content created by [email or web address] has been revised. The portions of the content which have been revised are identified through the use of italic text or in bold, and [facility] has neither reviewed nor approved the modified material. All other unmodified content is copyright [facility] [email or web address]. Please see references footnoted in the original [facility] [email or web address] edition 2016 Admission Criteria Met: Yes
[2016-12-07] MEDS: ECOTRIN PO SCH (10:31)
[2016-12-07] MEDS: PEPCID PO SCH ×2 (10:31→21:38)
[2016-12-07] MEDS: DELTASONE PO SCH (10:31)
[2016-12-07] MEDS: COZAAR PO SCH (10:33)
[2016-12-07] MEDS: IMDUR PO SCH (10:34)
[2016-12-07] MEDS: TOPROL XL PO SCH (10:35)
[2016-12-07] MEDS: LOVENOX SUB-Q SCH (10:36)
[2016-12-07] MEDS: RANEXA ER PO SCH ×2 (11:33→21:37)
[2016-12-07] MEDS: FLOMAX PO SCH (11:33)
[2016-12-07] MEDS: LASIX IV SCH (11:33)
[2016-12-07] MEDS: K-DUR PO SCH (11:33)
[2016-12-07] MEDS: NOVOLOG SUB-Q SCH (12:43)
[2016-12-07 13:13] LABS: Creatine Kinase MB 2.9 ng/mL (0.0-4.0)
[2016-12-07 13:14] LABS: Creatine Kinase 59 units/L (55-170)
[2016-12-07] MEDS ORDERED: NACL 0.9% 250ML 250 ML IV ONE (14:11)
--- NOTE | 2016-12-07 14:13 | Consultation ---
History of Present Illness Consult date: 12/07/16 Consult reason: chest pain, other (Abnormal ECG) History of present illness: This is a 76-year-old Portuguese male who speaks little Polish. He has an extensive history of coronary artery disease and ischemic cardiomyopathy. In 2007, he underwent three-way coronary artery bypass. A left internal mammary artery graft was placed to the LAD, and a sequential saphenous vein graft to the mid obtuse marginal and the posterior left ventricular branch of the circumflex system. Since his bypass graft, he has had multiple cardiac catheterizations in 2007, 2009 and most recently May 2016. All 3 bypass grafts have remained patent , and he is on medical therapy for small vessel coronary disease. Ejection fraction 25-30%. He presents with chest pain, shortness of breath with coughs and congestion. Chest x-ray reports no acute cardiopulmonary process. His ECG shows a sinus rhythm with nonspecific ST and T wave abnormalities. No significant changes when compared to prior ECG done May 2016. Patient resting in bed and appears comfortably. Cardiac consultation requested for chest pain and abnormal ECG. Past History Past Medical History: CAD, COPD, diabetes, GERD, hypertension, hyperlipidemia Past Surgical History: CABG, Other (AICD) Social history: lives with family, full code. denies: smoking, alcohol abuse, prescription drug abuse Family history: hypertension Medications and Allergies Allergies Allergy/AdvReac Type Severity Reaction Status Date / Time No Known Allergies Allergy Unverified 05/16/16 13:26 Home Medications Medication Instructions Recorded Confirmed Last Taken Type ALBUTEROL NEB's [Proventil 0.083% 2.5 mg IH Q4HRT PRN #1 nebu 12/04/16 Unknown Rx NEBS] Aspirin EC [Aspirin Enteric Coated 325 mg PO QDAY #30 tablet 12/04/16 Unknown Rx TAB] AtorvaSTATin [Lipitor] 20 mg PO QHS #30 tablet 12/04/16 Unknown Rx Dexlansoprazole [Dexilant] 60 mg PO QDAY #30 pramod.bp 12/04/16 Unknown Rx Furosemide [Lasix TAB] 40 mg PO QDAY #30 tablet 12/04/16 Unknown Rx ISOSORBIDE MONOnitrate [Imdur ER] 30 mg PO DAILY #30 tab.er.24h 12/04/16 Unknown Rx Losartan [Cozaar] 50 mg PO QDAY #30 tablet 04/03/17 Unknown Rx Metformin HCl [Metformin HCl ER] 500 mg PO DAILY #60 [id number] 12/04/16 Unknown Rx Metoclopramide HCl [Reglan TAB] 5 mg PO BID #60 tablet 12/04/16 Unknown Rx Metoprolol Xl [Metoprolol 50 mg PO QDAY #30 tablet 12/04/16 Unknown Rx SUCCINATE ER TAB] Omeprazole 40 mg PO DAILY #30 capsule. 12/04/16 Unknown Rx Potassium Chloride [K-Dur] 10 meq PO QDAY #30 tablet 12/04/16 Unknown Rx Ranolazine ER [Ranexa ER] 500 mg PO BID #60 tablet 12/04/16 Unknown Rx Tamsulosin [Flomax] 0.4 mg PO QDAY #30 capsule 12/04/16 Unknown Rx predniSONE [Deltasone] 20 mg PO QDAY #10 tablet 12/04/16 Unknown Rx Active Meds: Active Medications Acetaminophen (Tylenol) 650 mg PO Q6H PRN PRN Reason: Pain, Mild (1-3) Albuterol (Proventil) 2.5 mg IH Q4HRT PRN PRN Reason: Shortness Of Breath Aspirin (Ecotrin) 325 mg PO QDAY [facility] Last Admin: 12/07/16 10:31 Dose: 325 mg Atorvastatin Calcium (Lipitor) 20 mg PO QHS [facility] Enoxaparin Sodium (Lovenox) 40 mg SUB-Q QDAY [facility] Last Admin: 12/07/16 10:36 Dose: 40 mg Famotidine (Pepcid) 20 mg PO BID [facility] Last Admin: 12/07/16 10:31 Dose: 20 mg Furosemide (Lasix) 40 mg IV QDAY [facility] Last Admin: 12/07/16 11:33 Dose: Not Given Insulin Aspart (Novolog) 0 units SUB-Q [facility] PRN Reason: Protocol Last Admin: 12/07/16 12:43 Dose: Not Given Isosorbide Mononitrate (Imdur) 30 mg PO DAILY [facility] Last Admin: 12/07/16 10:34 Dose: Not Given Losartan Potassium (Cozaar) 50 mg PO QDAY [facility] Last Admin: 12/07/16 10:33 Dose: Not Given Metoprolol Succinate (Toprol Xl) 50 mg PO QDAY [facility] Last Admin: 12/07/16 10:35 Dose: Not Given Potassium Chloride (K-Dur) 10 meq PO QDAY [facility] Last Admin: 12/07/16 11:33 Dose: 10 meq Prednisone (Deltasone) 20 mg PO QDAY [facility] Last Admin: 12/07/16 10:31 Dose: 20 mg Ranolazine (Ranexa Er) 500 mg PO BID [facility] Last Admin: 12/07/16 11:33 Dose: 500 mg Tamsulosin HCl (Flomax) 0.4 mg PO QDAY [facility] Last Admin: 12/07/16 11:33 Dose: 0.4 mg Physical Examination Vital Signs Pulse Ox 97 12/07/16 04:36 General appearance: no acute distress HEENT: Positive: PERRL Neck: Positive: trachea midline Cardiac: Positive: Reg Rate and Rhythm Lungs: Positive: Decreased Breath Sounds Results 12/07/16 06:38 12/07/16 06:38 Cardiac Enzymes 12/07/16 Range/Units 11:57 CK-MB (CK-2) 2.9 (0.0-4.0) ng/mL Assessment and Plan Shortness of breath with coughs and congestion Chronic stable angina no ECG changes from prior ECG 05/2016 Hx of Ischemic Cardiomyopathy Hx of CAD s/p 3 way CABG [facility] 05/2016 reports 3 bypass grafts have remained patent, and he is on medical therapy for small vessel coronary disease. Ejection fraction 25-30%. Hypertension Diabetes mellitus
[2016-12-07] MEDS ORDERED: SIMPLE SYRUP FEEDTUBE PRN ×4 (14:32→15:18)
[2016-12-07] MEDS ORDERED: SODIUM BICARBONATE FEEDTUBE PRN ×2 (14:32→15:18)
[2016-12-07] MEDS ORDERED: PANCREAZE DR 10,500 UNIT FEEDTUBE PRN ×2 (14:32→15:18)
[2016-12-07 19:03] LABS: Creatine Kinase MB 3.2 ng/mL (0.0-4.0)
[2016-12-07 19:04] LABS: Creatine Kinase 41 units/L (55-170)
[2016-12-08 06:16] LABS: Anion Gap 15 mmol/L; BUN/Creatinine Ratio 38.33; Blood Urea Nitrogen 23 mg/dL (9-20); Calcium 8.2 mg/dL (8.4-10.2); Carbon Dioxide 25 mmol/L (22-30); Glucose 141 mg/dL (75-100); Magnesium 2.1 mg/dL (1.7-2.3); Potassium 4.6 mmol/L (3.6-5.0); Sodium 135 mmol/L (137-145)
--- NOTE | 2016-12-08 09:52 | Progress Note ---
Assessment and Plan Shortness of breath with coughs and congestion Chronic stable angina no ECG changes from prior ECG 05/2016 Hx of Ischemic Cardiomyopathy Hx of CAD s/p 3 way CABG [facility] 05/2016 reports 3 bypass grafts have remained patent, and he is on medical therapy for small vessel coronary disease. Ejection fraction 25-30%. Hypertension Diabetes mellitus Recommendations: Continue medical therapy for small vessel coronary artery disease and ischemic cardiomyopathy. This patient does NOT have an AICD in situ, so ultimately as an outpatient, he would need further evaluation for primary indication for ICD therapy. Stable cardiac hoffman for discharge. F/U with [facility] in 1 week. Subjective Date of service: 12/08/16 Interval history: No cardiac events overnight. Objective Vital Signs Temp Pulse Pulse Resp BP BP BP 12/08/16 08:51 75 12/08/16 07:12 97.4 F L 69 20 126/74 12/08/16 02:27 97.6 F 85 20 104/69 12/07/16 22:14 97.6 F 95 H 20 118/72 12/07/16 22:00 12/07/16 20:51 88 12/07/16 15:00 88 12/07/16 13:59 97.2 F L 87 20 92/59 12/07/16 12:45 79 14 87/49 12/07/16 12:40 78 23 87/57 12/07/16 12:36 83 16 87/57 12/07/16 12:30 75 10 L 90/47 12/07/16 12:26 70 18 90/47 12/07/16 12:20 82 16 90/47 12/07/16 12:15 79 9 L 90/47 12/07/16 12:10 79 12 100/55 12/07/16 12:06 76 15 100/54 12/07/16 12:00 76 10 L 100/54 12/07/16 11:56 77 16 100/55 12/07/16 11:50 77 15 100/55 12/07/16 11:45 76 20 100/55 12/07/16 11:40 75 13 104/45 12/07/16 11:36 75 13 104/45 12/07/16 11:30 76 14 104/45 12/07/16 11:26 76 14 90/54 12/07/16 11:20 73 11 L 90/54 12/07/16 11:15 64 11 L 90/54 12/07/16 11:10 69 11 L 97/61 12/07/16 11:06 67 17 93/61 12/07/16 11:00 65 29 H 93/61 12/07/16 10:56 67 22 97/61 12/07/16 10:50 64 21 97/61 12/07/16 10:46 74 12 97/61 12/07/16 10:40 79 12 97/61 12/07/16 10:36 83 14 97/61 12/07/16 10:35 66 91/64 12/07/16 10:34 66 91/64 12/07/16 10:33 66 91/64 12/07/16 10:30 69 13 97/61 12/07/16 10:26 66 27 H 91/64 12/07/16 10:20 67 23 91/64 12/07/16 10:15 78 13 91/64 12/07/16 10:10 75 12 97/57 12/07/16 10:06 76 14 97/57 12/07/16 10:00 72 18 97/57 12/07/16 09:56 78 13 105/57 Pulse Ox 12/08/16 08:51 12/08/16 07:12 99 12/08/16 02:27 97 12/07/16 22:14 96 12/07/16 22:00 98 12/07/16 20:51 12/07/16 15:00 12/07/16 13:59 97 12/07/16 12:45 95 12/07/16 12:40 95 12/07/16 12:36 99 12/07/16 12:30 93 12/07/16 12:26 98 12/07/16 12:20 94 12/07/16 12:15 97 12/07/16 12:10 96 12/07/16 12:06 96 12/07/16 12:00 98 12/07/16 11:56 100 12/07/16 11:50 100 12/07/16 11:45 100 12/07/16 11:40 100 12/07/16 11:36 99 12/07/16 11:30 96 12/07/16 11:26 91 12/07/16 11:20 97 12/07/16 11:15 99 12/07/16 11:10 96 12/07/16 11:06 97 12/07/16 11:00 97 12/07/16 10:56 95 12/07/16 10:50 97 12/07/16 10:46 96 12/07/16 10:40 97 12/07/16 10:36 95 12/07/16 10:35 12/07/16 10:34 12/07/16 10:33 12/07/16 10:30 100 12/07/16 10:26 97 12/07/16 10:20 98 12/07/16 10:15 97 12/07/16 10:10 95 12/07/16 10:06 97 12/07/16 10:00 95 12/07/16 09:56 99 - Physical Examination General: No Apparent Distress HEENT: Positive: PERRL Neck: Positive: trachea midline Cardiac: Positive: Reg Rate and Rhythm - Labs and Meds Cardiac Enzymes 12/07/16 Range/Units 11:57 CK-MB (CK-2) 2.9 (0.0-4.0) ng/mL Comprehensive Metabolic Panel 12/08/16 Range/Units 05:12 Sodium 135 L (137-145) mmol/L Potassium 4.6 D (3.6-5.0) mmol/L Chloride 100.0 (98-107) mmol/L Carbon Dioxide 25 (22-30) mmol/L BUN 23 H (9-20) mg/dL Creatinine 0.6 L (0.8-1.5) mg/dL Glucose 141 H (75-100) mg/dL Calcium 8.2 L (8.4-10.2) mg/dL
--- NOTE | 2016-12-08 10:12 | Discharge Summary ---
Providers - Providers Date of Admission: 12/07/16 08:41 Date of discharge: 12/08/16 Attending physician: JASWINDER POND 12/07/16 14:33 Consult to Dietitian/Nutrition [CONS] Routine Physician Instructions: Reason For Exam: Reason for Consult: Write/Manage Tube Feeding Primary care physician: CRIS CAMEJO Hospitalization Condition: Stable Disposition: DISCHARGED TO HOME OR SELFCARE Core Measure Documentation - Palliative Care Palliative Care/ Comfort Measures: Not Applicable - Core Measures Any of the following diagnoses?: heart failure - Heart Failure Discharge Requirements SAFIA/ARB for LVSD if EF <40%: Yes Beta vanda at discharge: Yes Exam - Constitutional Vitals: Temp Pulse Resp BP Pulse Ox 97.4 F L 75 20 126/74 99 12/08/16 07:12 12/08/16 08:51 12/08/16 07:12 12/08/16 07:12 12/08/16 07:12 General appearance: Present: no acute distress, well-nourished - EENT Eyes: Present: PERRL, EOM intact - Neck Neck: Present: supple, normal ROM - Respiratory Respiratory effort: normal Respiratory: bilateral: diminished, rales, negative: rhonchi, wheezing - Cardiovascular Rhythm: regular Heart Sounds: Present: S1 & S2 - Extremities Extremities: no ischemia, pulses intact, pulses symmetrical Peripheral Pulses: within normal limits - Abdominal General gastrointestinal: Present: soft, non-tender, non-distended, normal bowel sounds - Integumentary Integumentary: Present: clear, warm - Musculoskeletal Musculoskeletal: strength equal bilaterally - Psychiatric Psychiatric: appropriate mood/affect, cooperative - Neurologic Neurologic: CNII-XII intact, moves all extremities Plan Activity: advance as tolerated Diet: diabetic, other (cardiac diet) Additional Instructions: if you have chest pain or shortness of breath , contact MD or go to ER as needed Follow up with: CRIS CAMEJO MD [Primary Care Provider] - 3-5 Days ILENE ARREOLA MD [Staff Physician] - 7 Days Prescriptions: ISOSORBIDE MONOnitrate [Imdur ER] 30 mg PO DAILY #30 tab.er.24h
[2016-12-08] MEDS: ECOTRIN PO SCH (12:20)
[2016-12-08] MEDS: COZAAR PO SCH (12:20)
[2016-12-08] MEDS: IMDUR PO SCH (12:21)
[2016-12-08] MEDS: TOPROL XL PO SCH (12:21)
[2016-12-08] MEDS: DELTASONE PO SCH (12:22)
[2016-12-08] MEDS: FLOMAX PO SCH (12:22)
[2016-12-08] MEDS: LOVENOX SUB-Q SCH (12:23)
[2016-12-08] MEDS: K-DUR PO SCH (12:24)
[2016-12-08] MEDS: RANEXA ER PO SCH ×2 (12:24→21:45)
[2016-12-08] MEDS: LASIX IV SCH (12:24)
[2016-12-08] MEDS: PEPCID PO SCH ×2 (12:25→21:45)
[2016-12-08] MEDS: NOVOLOG SUB-Q SCH ×3 (12:25→18:34)
[2016-12-08] MEDS ORDERED: NACL 0.9% 250ML 250 ML IV ONE ×2 (18:14→21:46)
[2016-12-08] MEDS ORDERED: NACL 0.9% 250ML 250 ML ONE (21:34)
[2016-12-09] MEDS ORDERED: NACL 0.9% 500 ML 500 ML IV ONE (01:03)
[2016-12-09] MEDS: NOVOLOG SUB-Q SCH ×5 (01:28→22:33)
[2016-12-09] MEDS: K-DUR PO SCH (10:05)
[2016-12-09] MEDS: RANEXA ER PO SCH ×2 (10:05→22:40)
[2016-12-09] MEDS: FLOMAX PO SCH (10:05)
[2016-12-09] MEDS: LOVENOX SUB-Q SCH (10:05)
[2016-12-09] MEDS: PEPCID PO SCH ×2 (10:05→22:40)
[2016-12-09] MEDS: LASIX IV SCH (10:05)
[2016-12-09] MEDS: TOPROL XL PO SCH (10:05)
[2016-12-09] MEDS: ECOTRIN PO SCH (10:05)
[2016-12-09] MEDS: DELTASONE PO SCH (10:05)
[2016-12-09] MEDS: IMDUR PO SCH (10:06)
[2016-12-09] MEDS: COZAAR PO SCH (10:06)
[2016-12-09] MEDS ORDERED: PROAMATINE PO ONE (13:10)
--- NOTE | 2016-12-09 14:21 | Progress Note ---
Assessment and Plan - Patient Problems (1) Coronary artery disease Current Visit: No Status: Acute Qualifiers: Coronary Disease-Associated Artery/Lesion type: unspecified vessel or lesion type [place] vs. transplanted heart: [place] heart Associated angina: angina presence unspecified Qualified Code(s): I25.10 - Atherosclerotic heart disease of [place] coronary artery without angina pectoris Plan to address problem: Continue medical management of coronary artery disease and ischemic cardiomyopathy. As outpatient, the patient will have further evaluation for ICD for primary prevention. Subjective Date of service: 12/09/16 Interval history: Patient is comfortable, no acute distress. No new cardiac complaints. Objective Vital Signs Temp Pulse Pulse Resp BP BP Pulse Ox 12/09/16 12:00 97.3 F L 62 16 94/53 96 12/09/16 10:06 73 81/52 12/09/16 08:00 64 12/09/16 07:30 97.2 F L 73 16 81/52 98 12/09/16 04:02 95.7 F L 84 16 83/59 96 12/09/16 00:00 97.5 F L 77 16 74/56 94 12/08/16 22:00 18 12/08/16 21:13 97.8 F 79 20 84/55 96 12/08/16 20:00 82 - Physical Examination General: No Apparent Distress HEENT: Positive: PERRL Neck: Positive: trachea midline Cardiac: Positive: Reg Rate and Rhythm Lungs: Positive: clear to auscultation Neuro: Positive: Grossly Intact Abdomen: Positive: Soft Skin: Positive: Clear Extremities: Absent: edema
--- NOTE | 2016-12-09 16:07 | Progress Note ---
Assessment and Plan Assessment and plan: --Chest chest pain chronic stable angina Continue current management --Coronary artery disease status post CABG Continue antiplatelets beta blockers SAFIA inhibitor and statins --Gastroesophageal reflux disease Oral Protonix --Type 2 diabetes mellitus Accu-Chek sliding scale coverage and ADA diet and insulin as needed --Ischemic cardiomyopathy Systolic dysfunction, ejection fraction 15-20% Continue failure medications, input-output monitoring Outpatient evaluation for ICD placement upon discharge -- COPD Oxygen nebulizers and supportive care --Moderate protein calorie malnutrition Nutrition supplements and supportive care --DVT prophylaxis With Lovenox --Full CODE STATUS Full closely monitor the patient adjust the management as needed Plan of care discussed with the patient, as well as the nurse Train Announcer recommendations noted and appreciated History Interval history: Patient was initially cleared for discharge this morning However blood pressure was labile with episodes of hypotension Even though patient was asymptomatic in view of his significant cardiac history , elderly age Discharge will be held, and we will manage the patient symptomatically Hospitalist Physical - Constitutional Vitals: Temp Pulse Resp BP Pulse Ox 97.3 F L 62 16 94/53 96 12/09/16 12:00 12/09/16 12:00 12/09/16 12:00 12/09/16 12:00 12/09/16 12:00 General appearance: Present: no acute distress, well-nourished - EENT Eyes: Present: PERRL, EOM intact - Neck Neck: Present: supple, normal ROM - Respiratory Respiratory effort: normal Respiratory: bilateral: diminished, rales, negative: rhonchi, wheezing - Cardiovascular Rhythm: regular Heart Sounds: Present: S1 & S2 - Extremities Extremities: no ischemia, pulses intact, pulses symmetrical Peripheral Pulses: within normal limits - Abdominal General gastrointestinal: soft, non-tender, non-distended, normal bowel sounds - Integumentary Integumentary: Present: clear, warm - Psychiatric Psychiatric: appropriate mood/affect, cooperative - Neurologic Neurologic: CNII-XII intact, moves all extremities Results - Labs CBC & Chem 7: 12/07/16 06:38 12/08/16 05:12 Labs: Laboratory Last Values WBC 10.4 K/mm3 (4.5-11.0) 12/07/16 06:38 RBC 5.55 M/mm3 (3.65-5.03) H 12/07/16 06:38 Hgb 12.7 gm/dl (11.8-15.2) 12/07/16 06:38 Hct 39.5 % (35.5-45.6) 12/07/16 06:38 MCV 71 fl (84-94) L 12/07/16 06:38 MCH 23 pg (28-32) L 12/07/16 06:38 MCHC 32 % (32-34) 12/07/16 06:38 RDW 15.7 % (13.2-15.2) H 12/07/16 06:38 Plt Count 221 K/mm3 (140-440) 12/07/16 06:38 Lymph % (Auto) 15.6 % (13.4-35.0) 12/07/16 06:38 [place] % (Auto) 6.9 % (0.0-7.3) 12/07/16 06:38 Eos % (Auto) 1.9 % (0.0-4.3) 12/07/16 06:38 Baso % (Auto) 0.4 % (0.0-1.8) 12/07/16 06:38 Lymph # 1.6 K/mm3 (1.2-5.4) 12/07/16 06:38 [place] # 0.7 K/mm3 (0.0-0.8) 12/07/16 06:38 Eos # 0.2 K/mm3 (0.0-0.4) 12/07/16 06:38 Baso # 0.0 K/mm3 (0.0-0.1) 12/07/16 06:38 Seg Neutrophils % 75.2 % (40.0-70.0) H 12/07/16 06:38 Seg Neutrophils # 7.8 K/mm3 (1.8-7.7) H 12/07/16 06:38 Sodium 135 mmol/L (137-145) L 12/08/16 05:12 Potassium 4.6 mmol/L (3.6-5.0) D 12/08/16 05:12 Chloride 100.0 mmol/L (98-107) 12/08/16 05:12 Carbon Dioxide 25 mmol/L (22-30) 12/08/16 05:12 Anion Gap 15 mmol/L 12/08/16 05:12 BUN 23 mg/dL (9-20) H 12/08/16 05:12 Creatinine 0.6 mg/dL (0.8-1.5) L 12/08/16 05:12 Estimated GFR > 60 ml/min 12/08/16 05:12 BUN/Creatinine Ratio 38.33 % 12/08/16 05:12 Glucose 141 mg/dL (75-100) H 12/08/16 05:12 POC Glucose 195 (70-105) H 12/08/16 21:52 Calcium 8.2 mg/dL (8.4-10.2) L 12/08/16 05:12 Magnesium 2.1 mg/dL (1.7-2.3) 12/08/16 05:12 Total Bilirubin 0.4 mg/dL (0.1-1.2) 12/07/16 06:38 AST 18 units/L (5-40) 12/07/16 06:38 ALT 17 units/L (7-56) 12/07/16 06:38 Alkaline Phosphatase 49 units/L (35-129) 12/07/16 06:38 Total Creatine Kinase 41 units/L (55-170) L 12/07/16 18:24 CK-MB (CK-2) 2.9 ng/mL (0.0-4.0) 12/07/16 11:57 CK-MB (CK-2) Rel Index 7.8 (0-4) H 12/07/16 18:24 Troponin T < 0.010 ng/mL (0.00-0.029) 12/07/16 18:24 NT-Pro-B Natriuret Pep 360.7 pg/mL (0-900) 12/07/16 06:38 Total Protein 5.3 g/dL (6.3-8.2) L 12/07/16 06:38 Albumin 3.0 g/dL (3.9-5) L 12/07/16 06:38 Albumin/Globulin Ratio 1.3 % 12/07/16 06:38
--- NOTE | 2016-12-09 16:07 | Progress Note ---
Assessment and Plan Assessment and plan: --Hypotension Patient is asymptomatic however Will hold all the blood pressure medications, received one fluid bolus of 250 mL With very minimal improvement, will consider low-dose midodrine And closely monitor blood pressures , may DC the patient home if systolic blood pressures are maintained about 90 And patient is asymptomatic --Chest chest pain chronic stable angina Continue current management --Coronary artery disease status post CABG Continue antiplatelets beta blockers SAFIA inhibitor and statins --Gastroesophageal reflux disease Oral Protonix --Type 2 diabetes mellitus Accu-Chek sliding scale coverage and ADA diet and insulin as needed --Ischemic cardiomyopathy Systolic dysfunction, ejection fraction 15-20% Continue failure medications, input-output monitoring Outpatient evaluation for ICD placement upon discharge -- COPD Oxygen nebulizers and supportive care --Moderate protein calorie malnutrition Nutrition supplements and supportive care --DVT prophylaxis With Lovenox --Full CODE STATUS Possible discharge in 1-2 days if stable Plan of care was discussed with the patient as well as the nurse Cardiology recommendations noted and appreciated History Interval history: Patient feels better no new complaints Last night events noted, patient was hypotensive without any symptoms Today his blood pressures range between 85-90 systolic Patient denies chest pain or shortness of breath Denies headache or dizziness Hospitalist Physical - Constitutional Vitals: Temp Pulse Resp BP Pulse Ox 97.3 F L 62 16 94/53 96 12/09/16 12:00 12/09/16 12:00 12/09/16 12:00 12/09/16 12:00 12/09/16 12:00 General appearance: Present: no acute distress, well-nourished - EENT Eyes: Present: PERRL, EOM intact - Neck Neck: Present: supple, normal ROM - Respiratory Respiratory effort: normal Respiratory: bilateral: diminished, negative: rales, rhonchi, wheezing - Cardiovascular Rhythm: regular Heart Sounds: Present: S1 & S2 - Extremities Extremities: no ischemia, pulses intact, pulses symmetrical Peripheral Pulses: within normal limits - Abdominal General gastrointestinal: soft, non-tender, non-distended, normal bowel sounds - Integumentary Integumentary: Present: clear, warm - Psychiatric Psychiatric: appropriate mood/affect, cooperative - Neurologic Neurologic: CNII-XII intact, moves all extremities Results - Labs CBC & Chem 7: 12/07/16 06:38 12/08/16 05:12 Labs: Laboratory Last Values WBC 10.4 K/mm3 (4.5-11.0) 12/07/16 06:38 RBC 5.55 M/mm3 (3.65-5.03) H 12/07/16 06:38 Hgb 12.7 gm/dl (11.8-15.2) 12/07/16 06:38 Hct 39.5 % (35.5-45.6) 12/07/16 06:38 MCV 71 fl (84-94) L 12/07/16 06:38 MCH 23 pg (28-32) L 12/07/16 06:38 MCHC 32 % (32-34) 12/07/16 06:38 RDW 15.7 % (13.2-15.2) H 12/07/16 06:38 Plt Count 221 K/mm3 (140-440) 12/07/16 06:38 Lymph % (Auto) 15.6 % (13.4-35.0) 12/07/16 06:38 [place] % (Auto) 6.9 % (0.0-7.3) 12/07/16 06:38 Eos % (Auto) 1.9 % (0.0-4.3) 12/07/16 06:38 Baso % (Auto) 0.4 % (0.0-1.8) 12/07/16 06:38 Lymph # 1.6 K/mm3 (1.2-5.4) 12/07/16 06:38 [place] # 0.7 K/mm3 (0.0-0.8) 12/07/16 06:38 Eos # 0.2 K/mm3 (0.0-0.4) 12/07/16 06:38 Baso # 0.0 K/mm3 (0.0-0.1) 12/07/16 06:38 Seg Neutrophils % 75.2 % (40.0-70.0) H 12/07/16 06:38 Seg Neutrophils # 7.8 K/mm3 (1.8-7.7) H 12/07/16 06:38 Sodium 135 mmol/L (137-145) L 12/08/16 05:12 Potassium 4.6 mmol/L (3.6-5.0) D 12/08/16 05:12 Chloride 100.0 mmol/L (98-107) 12/08/16 05:12 Carbon Dioxide 25 mmol/L (22-30) 12/08/16 05:12 Anion Gap 15 mmol/L 12/08/16 05:12 BUN 23 mg/dL (9-20) H 12/08/16 05:12 Creatinine 0.6 mg/dL (0.8-1.5) L 12/08/16 05:12 Estimated GFR > 60 ml/min 12/08/16 05:12 BUN/Creatinine Ratio 38.33 % 12/08/16 05:12 Glucose 141 mg/dL (75-100) H 12/08/16 05:12 POC Glucose 195 (70-105) H 12/08/16 21:52 Calcium 8.2 mg/dL (8.4-10.2) L 12/08/16 05:12 Magnesium 2.1 mg/dL (1.7-2.3) 12/08/16 05:12 Total Bilirubin 0.4 mg/dL (0.1-1.2) 12/07/16 06:38 AST 18 units/L (5-40) 12/07/16 06:38 ALT 17 units/L (7-56) 12/07/16 06:38 Alkaline Phosphatase 49 units/L (35-129) 12/07/16 06:38 Total Creatine Kinase 41 units/L (55-170) L 12/07/16 18:24 CK-MB (CK-2) 2.9 ng/mL (0.0-4.0) 12/07/16 11:57 CK-MB (CK-2) Rel Index 7.8 (0-4) H 12/07/16 18:24 Troponin T < 0.010 ng/mL (0.00-0.029) 12/07/16 18:24 NT-Pro-B Natriuret Pep 360.7 pg/mL (0-900) 12/07/16 06:38 Total Protein 5.3 g/dL (6.3-8.2) L 12/07/16 06:38 Albumin 3.0 g/dL (3.9-5) L 12/07/16 06:38 Albumin/Globulin Ratio 1.3 % 12/07/16 06:38
[2016-12-09] MEDS: PROAMATINE PO SCH (22:40)
[2016-12-10] MEDS: PROAMATINE PO SCH ×2 (05:39→12:30)
[2016-12-10] MEDS: NOVOLOG SUB-Q SCH (10:12)
[2016-12-10] MEDS: ECOTRIN PO SCH (10:13)
[2016-12-10] MEDS: LASIX IV SCH (10:13)
[2016-12-10] MEDS: FLOMAX PO SCH (10:13)
[2016-12-10] MEDS: TOPROL XL PO SCH (10:14)
[2016-12-10] MEDS: PEPCID PO SCH (10:15)
[2016-12-10] MEDS: RANEXA ER PO SCH (10:15)
[2016-12-10] MEDS: K-DUR PO SCH (10:15)
[2016-12-10] MEDS: IMDUR PO SCH (10:15)
[2016-12-10] MEDS: COZAAR PO SCH (10:16)
[2016-12-10] MEDS: LOVENOX SUB-Q SCH (10:17)
--- NOTE | 2016-12-10 10:17 | Discharge Summary ---
Providers - Providers Date of Admission: 12/07/16 08:41 Date of discharge: 12/10/16 Attending physician: JASWINDER POND 12/07/16 14:33 Consult to Dietitian/Nutrition [CONS] Routine Physician Instructions: Reason For Exam: Reason for Consult: Write/Manage Tube Feeding Primary care physician: CRIS CAMEJO Hospitalization Reason for admission: Left-sided chest pain and shortness of breath Condition: Stable Pertinent studies: Chest x-ray; no cardiopulmonary abnormality noted Hospital course: Very pleasant 76-year-old male patient with significant past medical history of ischemic cardiomyopathy severe congestive heart failure COPD diabetes chronic hypotension history of hypertension dyslipidemia gastroesophageal reflux disease status post CABG follows with supervisor border department at [facility] patient developed sudden shortness of breath and left-sided chest pain presented to the emergency room noted to be in acute on chronic systolic congestive heart failure Admitted to the hospital symptomatically managed subsequently evaluation by supervisor border department medications were optimized Patient continues to have labile blood pressures with borderline hypotension Blood pressures ranging from 80s to 110s systolic, 50s to 80 diastolic Patient's beta blockers and Aftab inhibitors diuretics dose has significantly reduced in view of patient's borderline blood pressures Today patient is comfortable in bed denies any chest pain or shortness of breath Blood pressure soft ranging between 85 - 120 systolic, alert and awake not in acute distress Vital signs reviewed stable, patient's caregiver was at the bedside Strongly advised to hold blood pressure medications and diuretics if his blood pressure should be less has been 90 systolic and contacting the [id number] evaluation and physical examination done by me prior to discharge did not show any new changes DC the patient home with home health, will follow with primary care physician and supervisor border department per schedule, for evaluation for ICD placement. I discussed patient's condition discharge plan and chronic hypotension with the the supervisor border department . Final diagnosis; Chronic stable angina History of coronary artery disease status post CABG Acute on chronic systolic congestive heart failure ejection fraction 15-20% Ischemic cardiomyopathy COPD Chronic hypotension moderate protein calorie malnutrition Type 2 diabetes mellitus Gastroesophageal reflux disease Disposition: DC/TX HOME UNDER HOME HEALTH Time spent for discharge: 33 min Core Measure Documentation - Palliative Care Palliative Care/ Comfort Measures: Not Applicable - Core Measures Any of the following diagnoses?: heart failure - Heart Failure Discharge Requirements AFTAB/ARB for LVSD if EF <40%: Yes Beta vanda at discharge: Yes Exam - Constitutional Vitals: Temp Pulse Resp BP Pulse Ox 97.7 F 74 18 108/65 99 12/10/16 08:00 12/10/16 08:00 12/10/16 08:00 12/10/16 08:00 12/10/16 08:00 General appearance: Present: no acute distress, cachectic - EENT Eyes: Present: PERRL, EOM intact - Neck Neck: Present: supple, normal ROM - Respiratory Respiratory effort: normal Respiratory: bilateral: diminished, negative: rales, rhonchi, wheezing - Cardiovascular Rhythm: regular Heart Sounds: Present: S1 & S2 - Extremities Extremities: no ischemia, pulses intact, pulses symmetrical - Abdominal General gastrointestinal: Present: soft, non-tender, non-distended, normal bowel sounds, other (PEG tube in place) - Integumentary Integumentary: Present: clear, warm - Musculoskeletal Musculoskeletal: strength equal bilaterally - Psychiatric Psychiatric: appropriate mood/affect, cooperative - Neurologic Neurologic: CNII-XII intact, moves all extremities Plan Activity: advance as tolerated, fall precautions Diet: other (cardiac diet) Additional Instructions: Hold all the BP medications if systolic BP is < 100. and contact MD Follow up with: ILENE ARREOLA MD [Staff Physician] - 7 Days CRIS CAMEJO MD [Primary Care Provider] - 3-5 Days Prescriptions: Furosemide [Lasix TAB] 20 mg PO QDAY #30 tablet Losartan [Cozaar] 12.5 mg PO QDAY #30 tablet Metoprolol Xl [Metoprolol SUCCINATE ER TAB] 12.5 mg PO QDAY #30 tablet
[2016-12-10] MEDS: DELTASONE PO SCH (10:50)
--- NOTE | 2016-12-10 12:42 | Progress Note ---
Hospitalist Physical - Constitutional Vitals: Temp Pulse Resp BP Pulse Ox 97.7 F 74 18 108/60 99 12/10/16 08:00 12/10/16 08:00 12/10/16 08:00 12/10/16 10:16 12/10/16 08:00 General appearance: Present: no acute distress, well-nourished Results - Labs CBC & Chem 7: 12/07/16 06:38 12/08/16 05:12 Labs: Laboratory Last Values WBC 10.4 K/mm3 (4.5-11.0) 12/07/16 06:38 RBC 5.55 M/mm3 (3.65-5.03) H 12/07/16 06:38 Hgb 12.7 gm/dl (11.8-15.2) 12/07/16 06:38 Hct 39.5 % (35.5-45.6) 12/07/16 06:38 MCV 71 fl (84-94) L 12/07/16 06:38 MCH 23 pg (28-32) L 12/07/16 06:38 MCHC 32 % (32-34) 12/07/16 06:38 RDW 15.7 % (13.2-15.2) H 12/07/16 06:38 Plt Count 221 K/mm3 (140-440) 12/07/16 06:38 Lymph % (Auto) 15.6 % (13.4-35.0) 12/07/16 06:38 Jenkins % (Auto) 6.9 % (0.0-7.3) 12/07/16 06:38 Eos % (Auto) 1.9 % (0.0-4.3) 12/07/16 06:38 Baso % (Auto) 0.4 % (0.0-1.8) 12/07/16 06:38 Lymph # 1.6 K/mm3 (1.2-5.4) 12/07/16 06:38 Jenkins # 0.7 K/mm3 (0.0-0.8) 12/07/16 06:38 Eos # 0.2 K/mm3 (0.0-0.4) 12/07/16 06:38 Baso # 0.0 K/mm3 (0.0-0.1) 12/07/16 06:38 Seg Neutrophils % 75.2 % (40.0-70.0) H 12/07/16 06:38 Seg Neutrophils # 7.8 K/mm3 (1.8-7.7) H 12/07/16 06:38 Sodium 135 mmol/L (137-145) L 12/08/16 05:12 Potassium 4.6 mmol/L (3.6-5.0) D 12/08/16 05:12 Chloride 100.0 mmol/L (98-107) 12/08/16 05:12 Carbon Dioxide 25 mmol/L (22-30) 12/08/16 05:12 Anion Gap 15 mmol/L 12/08/16 05:12 BUN 23 mg/dL (9-20) H 12/08/16 05:12 Creatinine 0.6 mg/dL (0.8-1.5) L 12/08/16 05:12 Estimated GFR > 60 ml/min 12/08/16 05:12 BUN/Creatinine Ratio 38.33 % 12/08/16 05:12 Glucose 141 mg/dL (75-100) H 12/08/16 05:12 POC Glucose 158 (70-105) H 12/10/16 09:06 Calcium 8.2 mg/dL (8.4-10.2) L 12/08/16 05:12 Magnesium 2.1 mg/dL (1.7-2.3) 12/08/16 05:12 Total Bilirubin 0.4 mg/dL (0.1-1.2) 12/07/16 06:38 AST 18 units/L (5-40) 12/07/16 06:38 ALT 17 units/L (7-56) 12/07/16 06:38 Alkaline Phosphatase 49 units/L (35-129) 12/07/16 06:38 Total Creatine Kinase 41 units/L (55-170) L 12/07/16 18:24 CK-MB (CK-2) 2.9 ng/mL (0.0-4.0) 12/07/16 11:57 CK-MB (CK-2) Rel Index 7.8 (0-4) H 12/07/16 18:24 Troponin T < 0.010 ng/mL (0.00-0.029) 12/07/16 18:24 NT-Pro-B Natriuret Pep 360.7 pg/mL (0-900) 12/07/16 06:38 Total Protein 5.3 g/dL (6.3-8.2) L 12/07/16 06:38 Albumin 3.0 g/dL (3.9-5) L 12/07/16 06:38 Albumin/Globulin Ratio 1.3 % 12/07/16 06:38
--- NOTE | 2016-12-10 12:58 | Progress Note ---
Assessment and Plan - Patient Problems (1) Coronary artery disease Current Visit: No Status: Acute Qualifiers: Coronary Disease-Associated Artery/Lesion type: unspecified vessel or lesion type [place] vs. transplanted heart: [place] heart Associated angina: angina presence unspecified Qualified Code(s): I25.10 - Atherosclerotic heart disease of [place] coronary artery without angina pectoris Plan to address problem: Continue medical management of coronary artery disease and ischemic cardiomyopathy. As outpatient, the patient will have further evaluation for ICD for primary prevention. Subjective Date of service: 12/10/16 Interval history: Patient is comfortable in no acute distress. No cardiac complaints. Objective Vital Signs Temp Pulse Pulse Resp BP BP Pulse Ox 12/10/16 12:00 97.7 F 74 18 85/54 93 12/10/16 10:16 108/60 12/10/16 10:15 108/60 12/10/16 10:14 108/60 12/10/16 08:00 97.7 F 74 18 108/65 99 12/10/16 05:28 98.2 F 68 18 97/65 99 12/10/16 00:45 97.6 F 84 18 110/68 94 12/09/16 23:40 69 12/09/16 20:09 98.2 F 73 18 102/58 99 12/09/16 16:01 97.7 F 54 L 20 100/59 97 - Physical Examination General: No Apparent Distress HEENT: Positive: PERRL Neck: Positive: trachea midline Cardiac: Positive: Reg Rate and Rhythm Lungs: Positive: clear to auscultation Neuro: Positive: Grossly Intact Abdomen: Positive: Soft Skin: Positive: Clear Extremities: Absent: edema
[2016-12-10] MEDS ORDERED: TOPROL XL PO SCH (13:49)
[2016-12-10] MEDS ORDERED: COZAAR PO SCH (13:49)
[2016-12-10] MEDS ORDERED: LASIX IV SCH (13:49)
[2016-12-10 16:01] VITALS: BP 92/62
== END 2016-12-10 15:30 | disposition home health service (06) | DRG 292 ==
LOC: ED 04:29 → 4A 08:41
PROVIDERS: ADMIT Internal Medicine; ATTEND Internal Medicine
DX: I11.0 Hypertensive heart disease with heart failure (principal); E44.0 Moderate protein-calorie malnutrition; Z68.1 Body mass index [BMI] 19.9 or less, adult; I50.23 Acute on chronic systolic (congestive) heart failure; K21.9 Gastro-esophageal reflux disease without esophagitis; E11.9 Type 2 diabetes mellitus without complications; I25.5 Ischemic cardiomyopathy; I25.119 Atherosclerotic heart disease of native coronary artery with unspecified angina pectoris; J44.9 Chronic obstructive pulmonary disease, unspecified; E78.5 Hyperlipidemia, unspecified; Z95.810 Presence of automatic (implantable) cardiac defibrillator; Z82.49 Family history of ischemic heart disease and other diseases of the circulatory system; Z79.82 Long term (current) use of aspirin; Z79.84 Long term (current) use of oral hypoglycemic drugs; Z86.73 Personal history of transient ischemic attack (TIA), and cerebral infarction without residual deficits; Z95.1 Presence of aortocoronary bypass graft
CPT/HCPCS: 36415; 71010; 80048; 80053; 82550; 82553; 82962; 83735; 83880; 84484; 85025; 93005; 93010; 96360; 96372; A9270-GY; J1650; J1940; J7040; J7050; J7512

== ENCOUNTER 2016-12-19 00:20 | Emergency (ER) | payer MEDICARE ==
[2016-12-19] MEDS ORDERED: NACL 0.9% 1000 ML 1,000 ML IV ONE (01:11)
--- NOTE | 2016-12-19 01:32 | Emergency Department Report ---
ED Abdominal Pain HPI - General Chief Complaint: Tube Replacement Stated Complaint: FEEDING TUBE PROBLEM Time Seen by Provider: 12/19/16 00:59 Source: patient, family Mode of arrival: Wheelchair Limitations: Language Barrier - History of Present Illness Initial Comments: Patient is a 76-year-old male with a history of CVA with gait difficulty, hypertension, presented to the ER with embedded developer for evaluation of G-tube malfunction. As per embedded developer the G-tube is not flushing and is difficult to feed through. Patient has no complaints. G-tube was placed 3 months ago. Pt does take some food and drink by mouth. Otherwise no fevers, chills, DUNCAN, NVD, CP , SOB, travel, trauma, or sick contacts MD Complaint: other (GTube dysfunction) Severity scale (0 -10): 0 - Related Data Previous Rx's Medication Instructions Recorded Last Taken Type RX: ALBUTEROL NEB's [Proventil 2.5 mg IH Q4HRT PRN #1 nebu 12/04/16 Unknown Rx 0.083% NEBS] RX: Aspirin EC [Aspirin Enteric 325 mg PO QDAY #30 tablet 12/04/16 Unknown Rx Coated TAB] RX: AtorvaSTATin [Lipitor] 20 mg PO QHS #30 tablet 12/04/16 Unknown Rx RX: Dexlansoprazole [Dexilant] 60 mg PO QDAY #30 cap. 12/04/16 Unknown Rx RX: Metformin HCl [Metformin HCl 500 mg PO DAILY #60 [id number] 12/04/16 Unknown Rx ER] RX: Omeprazole 40 mg PO DAILY #30 capsule. 12/04/16 Unknown Rx RX: Potassium Chloride [K-Dur] 10 meq PO QDAY #30 tablet 12/04/16 Unknown Rx RX: Ranolazine ER [Ranexa ER] 500 mg PO BID #60 tablet 12/04/16 Unknown Rx RX: Tamsulosin [Flomax] 0.4 mg PO QDAY #30 capsule 12/04/16 Unknown Rx RX: predniSONE [Deltasone] 20 mg PO QDAY #10 tablet 12/04/16 Unknown Rx RX: ISOSORBIDE MONOnitrate [Imdur 30 mg PO DAILY tablet 12/08/16 Unknown Rx ER] RX: Furosemide [Lasix TAB] 20 mg PO QDAY #30 tablet 12/10/16 Unknown Rx RX: Losartan [Cozaar] 12.5 mg PO QDAY #30 tablet 12/10/16 Unknown Rx RX: Metoprolol Xl [Metoprolol 12.5 mg PO QDAY #30 tablet 12/10/16 Unknown Rx SUCCINATE ER TAB] Allergies Allergy/AdvReac Type Severity Reaction Status Date / Time No Known Allergies Allergy Unverified 05/16/16 13:26 ED Review of Systems ROS: Stated complaint: FEEDING TUBE PROBLEM Other details as noted in HPI Comment: All other systems reviewed and negative ED Past Medical Hx - Past Medical History Hx Hypertension: Yes Hx CVA: Yes Hx Diabetes: Yes Hx GERD: Yes Hx HIV: No Additional medical history: cardiomegaly,elevated cholesterol,enlarged prostate, CAD - Surgical History Hx Open Heart Surgery: Yes (CABG 2006) Hx Pacemaker: (DEFIB) Hx Internal Defibrillator: Yes Additional Surgical History: heart cath 2011. Ejection Fraction LVEF 50% via echo 06/22/15 - Social History Smoking Status: Unknown if ever smoked - Medications Home Medications: Home Medications Medication Instructions Recorded Confirmed Last Taken Type RX: ALBUTEROL NEB's [Proventil 2.5 mg IH Q4HRT PRN #1 nebu 12/04/16 Unknown Rx 0.083% NEBS] RX: Aspirin EC [Aspirin Enteric 325 mg PO QDAY #30 tablet 12/04/16 Unknown Rx Coated TAB] RX: AtorvaSTATin [Lipitor] 20 mg PO QHS #30 tablet 12/04/16 Unknown Rx RX: Dexlansoprazole [Dexilant] 60 mg PO QDAY #30 cap. 12/04/16 Unknown Rx RX: Metformin HCl [Metformin HCl 500 mg PO DAILY #60 [id number] 12/04/16 Unknown Rx ER] RX: Omeprazole 40 mg PO DAILY #30 capsule. 12/04/16 Unknown Rx RX: Potassium Chloride [K-Dur] 10 meq PO QDAY #30 tablet 12/04/16 Unknown Rx RX: Ranolazine ER [Ranexa ER] 500 mg PO BID #60 tablet 12/04/16 Unknown Rx RX: Tamsulosin [Flomax] 0.4 mg PO QDAY #30 capsule 12/04/16 Unknown Rx RX: predniSONE [Deltasone] 20 mg PO QDAY #10 tablet 12/04/16 Unknown Rx RX: ISOSORBIDE MONOnitrate [Imdur 30 mg PO DAILY tablet 12/08/16 Unknown Rx ER] RX: Furosemide [Lasix TAB] 20 mg PO QDAY #30 tablet 12/10/16 Unknown Rx RX: Losartan [Cozaar] 12.5 mg PO QDAY #30 tablet 12/10/16 Unknown Rx RX: Metoprolol Xl [Metoprolol 12.5 mg PO QDAY #30 tablet 12/10/16 Unknown Rx SUCCINATE ER TAB] ED Physical Exam - General Limitations: Language Barrier, Physical Limitation General appearance: alert, in no apparent distress - Head Head exam: Present: atraumatic, normocephalic - Eye Eye exam: Present: normal appearance - ENT ENT exam: Present: mucous membranes moist - Neck Neck exam: Present: normal inspection - Respiratory Respiratory exam: Present: normal lung sounds bilaterally. Absent: respiratory distress - Cardiovascular Cardiovascular Exam: Present: regular rate, normal rhythm. Absent: systolic murmur, diastolic murmur, rubs, gallop - GI/Abdominal GI/Abdominal exam: Present: soft, normal bowel sounds, other (GTube in place, no erythema or cellulitic changes surrounding the tube) - Rectal Rectal exam: Present: deferred - Extremities Exam Extremities exam: Present: normal inspection, full ROM. Absent: tenderness, pedal edema - Back Exam Back exam: Present: normal inspection - Neurological Exam Neurological exam: Present: alert, oriented X3, CN II-XII intact, abnormal gait. Absent: motor sensory deficit - Psychiatric Psychiatric exam: Present: normal affect, normal mood - Skin Skin exam: Present: warm, dry, intact, normal color. Absent: rash ED Course Vital Signs 12/19/16 12/19/16 00:29 00:50 Temperature 97.6 F 97.6 F Pulse Rate 64 64 Respiratory 18 16 Rate Blood Pressure 75/43 Blood Pressure 99/47 [Left] O2 Sat by Pulse 96 96 Oximetry ED Medical Decision Making - Lab Data Result diagrams: 12/19/16 01:43 12/19/16 01:43 - Radiology Data Radiology results: report reviewed - Medical Decision Making G tube was successfully flushed and irrigated by the nursing staff. Critical care attestation.: If time is entered above; I have spent that time in minutes in the direct care of this critically ill patient, excluding procedure time. ED Disposition Clinical Impression: Gastrostomy tube dysfunction Disposition: DISCHARGED TO HOME OR SELFCARE Is pt being admited?: No Condition: Stable Instructions: How to Use and Care for Your PEG Tube (ED), Tube Feeding (ED) Referrals: PRIMARY CARE, [Primary Care Provider] - 3-5 Days
[2016-12-19 02:18] LABS: Anion Gap 14 mmol/L; BUN/Creatinine Ratio 37.14; Blood Urea Nitrogen 26 mg/dL (9-20); Calcium 8.6 mg/dL (8.4-10.2); Carbon Dioxide 29 mmol/L (22-30); Chloride 99.5 mmol/L (98-107); Glucose 102 mg/dL (75-100); Potassium 4.1 mmol/L (3.6-5.0); Sodium 138 mmol/L (137-145)
[2016-12-19 02:22] LABS: Basophils % (Auto) 0.6 % (0.0-1.8); Hematocrit 37.1 % (35.5-45.6); Hemoglobin 11.6 gm/dl (11.8-15.2); Mean Corpuscular HGB Conc 31 % (32-34); Mean Corpuscular Volume 73 fl (84-94); Platelet Count 189 K/mm3 (140-440); Red Blood Count 5.08 M/mm3 (3.65-5.03); Red Cell Distribution Width 17.3 % (13.2-15.2); White Blood Count 5.1 K/mm3 (4.5-11.0)
[2016-12-19 02:31] LABS: Mean Corpuscular Hemoglobin 23 pg (28-32)
--- NOTE | 2016-12-19 03:15 | XRay Report ---
FINAL REPORT PROCEDURE: XR G-TUBE STUDY TECHNIQUE: Abdominal radiograph, single supine AP view. HISTORY: G tube eval COMPARISON: No prior studies are available for comparison. FINDINGS: The [employer] member radiograph shows a G tube overlying the region of the mid stomach. Bowel gas pattern is nonobstructive. Oral contrast is infused into the G-tube. Oral contrast is identified within the stomach and the proximal duodenum. No extravasation is seen. IMPRESSION: As above
[2016-12-19] MEDS ORDERED: PANCREAZE DR 10,500 UNIT FEEDTUBE PRN (04:38)
[2016-12-19] MEDS ORDERED: SODIUM BICARBONATE FEEDTUBE PRN (04:38)
[2016-12-19 07:20] VITALS: BP 125/71
[2016-12-19] MEDS ORDERED: PANCREAZE DR 10,500 UNIT PO SCH (07:30)
== END 2016-12-19 07:23 | disposition home or self-care (01) ==
LOC: ED 00:20
DX: K94.23 Gastrostomy malfunction (principal); I10 Essential (primary) hypertension; E11.9 Type 2 diabetes mellitus without complications; K21.9 Gastro-esophageal reflux disease without esophagitis; Z86.73 Personal history of transient ischemic attack (TIA), and cerebral infarction without residual deficits; I25.10 Atherosclerotic heart disease of native coronary artery without angina pectoris; Z79.82 Long term (current) use of aspirin; Z95.810 Presence of automatic (implantable) cardiac defibrillator
CPT/HCPCS: 36415; 74000; 80048; 85025; 96360; 99284; J7030; Q9963

== ENCOUNTER 2016-12-20 22:07 | Emergency (ER) | payer MEDICARE ==
--- NOTE | 2016-12-20 22:41 | Emergency Department Report ---
ED Abdominal Pain HPI - General Chief Complaint: Abdominal Pain Stated Complaint: GENERAL ILLNESS Time Seen by Provider: 12/20/16 22:40 Source: EMS Mode of arrival: Stretcher Limitations: Language Barrier - History of Present Illness Initial Comments: This 76-year-old male presenting with abdominal cramping and constipation as reported by EMS. Patient is a poor historian, has a G-tube in place. Has no other complaints MD Complaint: abdominal pain, other (constipation) - Related Data Previous Rx's Medication Instructions Recorded Last Taken Type ALBUTEROL NEB's [Proventil 0.083% 2.5 mg IH Q4HRT PRN #1 nebu 12/04/16 Unknown Rx NEBS] Aspirin EC [Aspirin Enteric Coated 325 mg PO QDAY #30 tablet 12/04/16 Unknown Rx TAB] AtorvaSTATin [Lipitor] 20 mg PO QHS #30 tablet 12/04/16 Unknown Rx Dexlansoprazole [Dexilant] 60 mg PO QDAY #30 cap. 12/04/16 Unknown Rx Metformin HCl [Metformin HCl ER] 500 mg PO DAILY #60 [id number] 12/04/16 Unknown Rx Omeprazole 40 mg PO DAILY #30 capsule. 12/04/16 Unknown Rx Potassium Chloride [K-Dur] 10 meq PO QDAY #30 tablet 12/04/16 Unknown Rx Ranolazine ER [Ranexa ER] 500 mg PO BID #60 tablet 12/04/16 Unknown Rx Tamsulosin [Flomax] 0.4 mg PO QDAY #30 capsule 12/04/16 Unknown Rx predniSONE [Deltasone] 20 mg PO QDAY #10 tablet 12/04/16 Unknown Rx ISOSORBIDE MONOnitrate [Imdur ER] 30 mg PO DAILY tablet 12/08/16 Unknown Rx Furosemide [Lasix TAB] 20 mg PO QDAY #30 tablet 12/10/16 Unknown Rx Losartan [Cozaar] 12.5 mg PO QDAY #30 tablet 12/10/16 Unknown Rx Metoprolol Xl [Metoprolol 12.5 mg PO QDAY #30 tablet 12/10/16 Unknown Rx SUCCINATE ER TAB] Polyethylene Glycol 3350 [Miralax 17 gm PO BID #30 packet 12/21/16 Unknown Rx 3350] Allergies Allergy/AdvReac Type Severity Reaction Status Date / Time No Known Allergies Allergy Unverified 05/16/16 13:26 ED Review of Systems ROS: Stated complaint: GENERAL ILLNESS Other details as noted in HPI Comment: Unobtainable due to pts medical conditions ED Past Medical Hx - Past Medical History Previous Medical History?: Yes Hx Hypertension: Yes Hx CVA: Yes Hx Heart Attack/AMI: Yes Hx Diabetes: Yes Hx GERD: Yes Hx HIV: No Additional medical history: cardiomegaly,elevated cholesterol,enlarged prostate, CAD - Surgical History Hx Open Heart Surgery: Yes (CABG 2006) Hx Pacemaker: (DEFIB) Hx Internal Defibrillator: Yes Additional Surgical History: heart cath 2011. Ejection Fraction LVEF 50% via echo 06/22/15 - Social History Smoking Status: Former Smoker Substance Use Type: None - Medications Home Medications: Home Medications Medication Instructions Recorded Confirmed Last Taken Type ALBUTEROL NEB's [Proventil 0.083% 2.5 mg IH Q4HRT PRN #1 nebu 12/04/16 Unknown Rx NEBS] Aspirin EC [Aspirin Enteric Coated 325 mg PO QDAY #30 tablet 12/04/16 Unknown Rx TAB] AtorvaSTATin [Lipitor] 20 mg PO QHS #30 tablet 12/04/16 Unknown Rx Dexlansoprazole [Dexilant] 60 mg PO QDAY #30 cap. 12/04/16 Unknown Rx Metformin HCl [Metformin HCl ER] 500 mg PO DAILY #60 [id number] 12/04/16 Unknown Rx Omeprazole 40 mg PO DAILY #30 capsule. 12/04/16 Unknown Rx Potassium Chloride [K-Dur] 10 meq PO QDAY #30 tablet 12/04/16 Unknown Rx Ranolazine ER [Ranexa ER] 500 mg PO BID #60 tablet 12/04/16 Unknown Rx Tamsulosin [Flomax] 0.4 mg PO QDAY #30 capsule 12/04/16 Unknown Rx predniSONE [Deltasone] 20 mg PO QDAY #10 tablet 12/04/16 Unknown Rx ISOSORBIDE MONOnitrate [Imdur ER] 30 mg PO DAILY tablet 12/08/16 Unknown Rx Furosemide [Lasix TAB] 20 mg PO QDAY #30 tablet 12/10/16 Unknown Rx Losartan [Cozaar] 12.5 mg PO QDAY #30 tablet 12/10/16 Unknown Rx Metoprolol Xl [Metoprolol 12.5 mg PO QDAY #30 tablet 12/10/16 Unknown Rx SUCCINATE ER TAB] Polyethylene Glycol 3350 [Miralax 17 gm PO BID #30 packet 12/21/16 Unknown Rx 3350] ED Physical Exam - General Limitations: Language Barrier General appearance: alert, in no apparent distress - Head Head exam: Present: atraumatic, normocephalic - Eye Eye exam: Present: normal appearance - ENT ENT exam: Present: mucous membranes moist - Neck Neck exam: Present: normal inspection - Respiratory Respiratory exam: Present: normal lung sounds bilaterally. Absent: respiratory distress - Cardiovascular Cardiovascular Exam: Present: regular rate, normal rhythm. Absent: systolic murmur, diastolic murmur, rubs, gallop - GI/Abdominal GI/Abdominal exam: Present: soft, tenderness (mild), normal bowel sounds, other (G tube in place). Absent: distended - Rectal Rectal exam: Present: deferred - Extremities Exam Extremities exam: Present: normal inspection - Back Exam Back exam: Present: normal inspection - Neurological Exam Neurological exam: Present: alert, oriented X3 - Psychiatric Psychiatric exam: Present: normal affect, normal mood - Skin Skin exam: Present: warm, dry, intact, normal color. Absent: rash ED Course Vital Signs 12/20/16 12/20/16 12/20/16 22:23 22:41 22:48 Temperature 97.8 F Pulse Rate 67 55 L Respiratory 18 25 H 18 Rate Blood Pressure 114/61 Blood Pressure [Left] O2 Sat by Pulse 97 96 98 Oximetry 12/21/16 12/21/16 00:32 02:09 Temperature Pulse Rate 68 70 Respiratory 18 18 Rate Blood Pressure Blood Pressure 120/62 122/66 [Left] O2 Sat by Pulse 98 98 Oximetry ED Medical Decision Making - Radiology Data Radiology results: image reviewed Abd XR: (+)moderate amount of stool, constipated, as visualized by me - Medical Decision Making Successful enema: large soft BM Critical care attestation.: If time is entered above; I have spent that time in minutes in the direct care of this critically ill patient, excluding procedure time. ED Disposition Clinical Impression: Constipation Disposition: DISCHARGED TO HOME OR SELFCARE Is pt being admited?: No Condition: Stable Prescriptions: Polyethylene Glycol 3350 [Miralax 3350] 17 gm PO BID #30 packet Referrals: PRIMARY CARE,MD [Primary Care Provider] - 3-5 Days
[2016-12-21] MEDS ORDERED: FLEET PR ONE ×2 (01:24→01:43)
[2016-12-21 04:39] VITALS: BP 118/58
--- NOTE | 2016-12-21 07:39 | XRay Report ---
ABDOMEN, 2 views: History: Constipation. There is no evidence of free air beneath the diaphragms. The gas pattern within the abdomen is unremarkable. There is no evidence of bowel dilatation, significant air-fluid levels, or pathologic calcifications. Organ shadows are unremarkable. A PEG tube is in position. IMPRESSION: Unremarkable abdomen.
== END 2016-12-21 06:00 | disposition home or self-care (01) ==
LOC: ED 22:07
DX: K59.00 Constipation, unspecified (principal); I10 Essential (primary) hypertension; I25.10 Atherosclerotic heart disease of native coronary artery without angina pectoris; K21.9 Gastro-esophageal reflux disease without esophagitis; E11.9 Type 2 diabetes mellitus without complications; Z98.890 Other specified postprocedural states; Z86.73 Personal history of transient ischemic attack (TIA), and cerebral infarction without residual deficits; Z87.891 Personal history of nicotine dependence; Z95.5 Presence of coronary angioplasty implant and graft; Z95.0 Presence of cardiac pacemaker
CPT/HCPCS: 74020; 99284

== ENCOUNTER 2017-02-14 12:43 | Inpatient (IN) | payer MEDICARE ==
[2017-02-14] MEDS ORDERED: NACL 0.9% 1000 ML 1,000 ML IV ONE ×3 (13:05→16:24)
[2017-02-14] MEDS ORDERED: ATROVENT IH ONE (13:06)
[2017-02-14] MEDS ORDERED: PROVENTIL IH ONE (13:06)
[2017-02-14] MEDS ORDERED: VANCOMYCIN/NS 1 GM/250 ML 1 GM/250 ML BAG IV ONE (13:22)
--- NOTE | 2017-02-14 13:47 | Admit Criteria Form ---
Admission Criteria Documentation: GENERAL ADMISSION CRITERIA (Place 'X' for any and all applicable criteria): Admission is indicated for ANY ONE of the following: [X ]I. Hemodynamic instability as indicated by ANY ONE of the following(1)(2 )(3)(4)(5): [ X]a) Vital sign abnormality not readily corrected by appropriate treatment within 12 to 24 hours indicated by ANY ONE of the following: [X ]i) Hypotension [ ]ii) Symptomatic Tachycardia unresponsive to treatment (eg , analgesia, fluids, sedation as indicated) [ ]iii) Orthostatic vital sign changes unresponsive to treatment (eg, fluids) [ ]b) Vital sign abnormality that is severe indicated by ANY ONE of the following: [ ]i) Inadequate perfusion indicated by ANY ONE of the following: [ ]1) Lactic acidosis (greater than 2 mmol/L) [ ]2) New abnormal capillary refill (greater than 3 seconds) [ ]3) Other metabolic acidosis (arterial pH less than 7.35) not otherwise explained [ ]4) Reduced urine output [ ]5) Altered mental status [ ]6) Myocardial Ischemia [ ]v) Mean arterial pressure[A] less than 60 mm Hg [ ]vi) Mean arterial pressure[A] less than 70 mm Hg after 30 minutes of appropriate treatment (eg, fluid resuscitation) [ ]vii) IV inotropic or vasopressor medication required to maintain adequate blood pressure or perfusion [ ]viii) Sustained heart rate greater than 120 beats per minute in adult or child 6 years or older[B]] [ ]II. Hypertension requiring inpatient treatment as indicated by ANY ONE of the following(6)(7)(8): [ ]a) SBP greater than 220 mm Hg or DBP greater than 120 mm Hg despite treatment [ ]b) SBP greater than 140 mm Hg or DBP greater than 100 mm Hg with evidence of acute end organ damage as indicated by ANY ONE of the following: [ ]i) Encephalopathy [ ]ii) Acute renal failure as indicated by new onset of ANY ONE of the following(9)(10)(11)(12)(13): [ ]1) A 3-fold rise in serum creatinine from baseline [ ]2) Serum creatinine greater than 4 mg/dL ( 354 micromoles/L) with acute rise greater than 0.5 mg/dL (44.2 micromoles/L) [ ]3) Reduction of more than 75% in estimated glomerular filtration rate from baseline [ ]4) Estimated glomerular filtration rate less than 35 mL/min/1.73m2 (0.59 mL/sec/1.73m2) in child up to 18 years of age [ ]5) Cessation of urine output indicated by ALL of the following: [ ]A. Adequate volume status [ ]B. Inadequate urine output as indicated by ANY ONE of the following: [ ]a. Urine output less than 0.3 mL/kg/hr for 24 hours [ ]b. Anuria (urine output less than 0.1 mL/kg/hr) for 12 hours [ ]iii) Aortic dissection [ ]iv) Myocardial ischemia [ ]v) Left ventricular heart failure [ ]vi) Retinal hemorrhage [ ]vii) Other significant finding [ ]c) Hypertension in child requiring inpatient treatment as indicated by ALL of the following(14)(15)(16): [ ]i) Outpatient treatment not effective, not available, or not appropriate [ ]ii) SBP or DBP greater than 95th percentile for age [ ]iii) Evidence of acute end organ damage as indicated by ANY ONE of the following: [ ]1) Altered mental status [ ]2) Acute renal failure as indicated by new onset of ANY ONE of the following(9)(10)(11)(12)(13): [ ]A. A 3-fold rise in serum creatinine from baseline [ ]B. Serum creatinine greater than 4 mg/dL (354 micromoles/L) with acute rise greater than 0.5 mg/dL (44.2 micromoles/L) [ ]C. Reduction of more than 75% in estimated glomerular filtration rate from baseline [ ]D. Estimated glomerular filtration rate less than 35 mL/min/1.73m2 (0.59 mL/sec/1.73m2)in child up to 18 years of age [ ]E. Cessation of urine output indicated by ALL of the following: [ ]a. Adequate volume status [ ]b. Inadequate urine output as indicated by ANY ONE of the following: [ ]1) Urine output less than 0.3 mL/kg/hr for 24 hours [ ]2) Anuria (urine output less than 0.1 mL/kg/hr) for 12 hours [ ]3) Severe headache [ ]4) Visual disturbance [ ]5) Retinal hemorrhage [ ]6) Other significant finding [ ]III. Acute cardiac or peripheral ischemia as indicated by ANY ONE of the following: [ ]a) Acute coronary syndrome(17)(18) [ ]b) Acute peripheral ischemia (eg, pulseless, cool, mottled, or cyanotic extremity)(19) [ ]IV. Cardiac arrhythmias or findings of immediate concern indicated by ANY ONE of the following(20)(21): [ ]a) Heart rhythms that are inherently dangerous or unstable indicated by ANY ONE of the following(22)(23)(24): [ ]i) Resuscitated ventricular fibrillation or cardiac arrest [ ]ii) Ventricular escape rhythm [ ]iii) Sustained ventricular tachycardia (30 seconds or more of ventricular rhythm at greater than 100 beats per minute) [ ]iv) Nonsustained ventricular tachycardia and ANY ONE of the following: [ ]1) Suspected cardiac ischemia as cause or consequence of ventricular tachycardia [ ]2) In setting of acute myocarditis [ ]b) Unstable cardiac conduction defects indicated by ANY ONE of the following(24)(25)(26): [ ]i) Type II second-degree atrioventricular block [ ]ii) Third-degree atrioventricular block [ ]iii) New-onset left bundle branch block with suspected myocardial ischemia [ ]c) Any heart rhythm and ANY ONE of the following(22)(23)(27)(28)( 29): [ ] i) Continuous long-term ECG monitoring needed (eg, initiation of drug requiring monitoring for more than 24 hours) [ ] ii) Patient has automatic implanted cardioverter defibrillator that is repeatedly firing, malfunctioning, or in need of immediate adjustment of settings beyond the scope of ambulatory or observation care. [ ]d) Heart rhythms of concern due to ANY ONE of the following: [ ]i) Hypotension [ ]ii) Respiratory distress [ ]iii) Association with other significant symptoms (eg, bradycardia with syncope or ongoing dizziness, supraventricular tachycardia with chest pain) (27)(28) (30) [ ] V. Severe heart failure as indicated by ANY ONE of the following ( 31)(32): [ ]a) Respiratory distress [ ]b) Hypotension [ ]c) Anasarca (refractory to outpatient therapy) [ ]d) Cardiac arrhythmias of immediate concern [ ]e) Myocardial ischemia [ ]. Respiratory abnormalities, including ANY ONE of the following(33)(34) (35)(36): [ ]a) Respiratory rate greater than 30 breaths per minute unresponsive to treatment [A] [ ]b) New saturation of arterial oxygen less than 90% [ ]c) New partial pressure of carbon dioxide greater than 44 mm Hg ( 5.9 kPa) [ ]d) Supplemental oxygen or respiratory treatments needed that are new or not performable at other levels of care [ ]e) New-onset cyanosis [ ]f) Inability to protect airway [ ]g) Chronic lung disease with severe deterioration (not responsive to emergency and observation care treatment as appropriate) as indicated by ANY ONE of the following(34)(36 ): [ ]i) SaO2 5% below baseline in patient with chronic hypoxemia [ ]ii) New requirement for supplemental oxygen to keep SaO2 at baseline or acceptable level [ ]iii) Required supplemental oxygen performable only in acute inpatient setting [ ]iv) Severe airflow or ventilation abnormalities [ ]v) Previously mobile patient unable to walk between rooms [ ]vi Inability to eat or sleep due to dyspnea [ ]vii) Rapid rate of exacerbation onset [ ]viii) Altered mental status ]VII. Severe airflow or ventilation abnormalities (not responsive to emergency and observation care treatment as appropriate) as indicated by ANY ONE of the following(33)(34)(35)(37): [ ]a) PCO2 greater than 42 mm Hg (5.6 kPa) and pH less than 7.35 (new ) [ ]b) Documented PCO2 increased more than 5 mm Hg (0.7 kPa) from disease baseline [ ]c) Airflow measurements [B] less than 60% of previous best or predicted (eg, peak expiratory flow rate less than 300 L/minute) despite intensive emergent treatment [C] [ ]d) Required respiratory treatments that are performable only in acute inpatient setting [ ]VIII. Impending or actual respiratory arrest ( Also use Respiratory Failure GRG for severe respiratory disease and long-term mechanical ventilation patients) [ ]IX. Neurologic abnormalities, including ANY ONE of the following: [ ]a) New findings that suggest ANY ONE of the following: [ ]i) [employer] infection(38) [ ]ii) Cerebral bleeding, ischemia, or vasospasm(39)(40) [ ]iii) Increased intracranial pressure, hydrocephalus, or cerebral edema(41)(42)(43) [ ]iv) Spinal cord injury(44) [ ]b) Uncontrolled seizures(45) [ ]c) New-onset coma (eg, Janine coma scale score less than 9) or unexplained abnormal mental status (eg, [place] coma scale score less than 14) [D](41)(46)(47) [ ]X. New-onset severe neurologic findings requiring inpatient care; examples include(42)(48)(49): [ ]a) Papilledema [ ]b) Cerebral edema [ ]c) Mass effect on CT scan [ ]XI. Suspected acute intra-abdominal process with peritoneal signs, abdominal mass, or similar findings (50)(51)(52) [ ]XII. Severe physiologic disorder remaining after emergency or observation level care (as appropriate) as indicated by ANY ONE of the following (53): [ ]a) Significant dehydration [ ]b) Diabetic ketoacidosis [ ]c) Hyperglycemic hyperosmolar state (eg, osmolality greater than 320 mOsm/kg (mmol/kg) [ ]d) Hypoglycemia [ ]e) Other (new) acid-base disorder with pH less than 7.35 or greater than 7.5(54) [ ]f) Thyroid storm (55) [ ]g) Myxedema coma (55) [ ]XIII. Abdominal abnormalities with ANY ONE of the following(56)(57): [ ]a) Absent bowel sounds with complete ileus [ ]b) Signs of intestinal obstruction or peritonitis [E] [ ]c) Nausea and vomiting that cannot be controlled with outpatient or observation care [ ]XIV. Acute renal failure as indicated by new onset of ANY ONE of the following(9)(10)(11)(12)(13): [ ]a) A 3-fold rise in serum creatinine from baseline [ ]b) Serum creatinine greater than 4 mg/dL (354 micromoles/L) with acute rise greater than 0.5 mg/dL (44.2 micromoles/L) [ ]c) Reduction of more than 75% in estimated glomerular filtration rate from baseline [ ]d) Estimated glomerular filtration rate less than 35 mL/min/ 1.73m2 (0.59 mL/sec/1.73m2) in child up to 18 years of age [ ]e) Cessation of urine output indicated by ALL of the following: [ ]i) Adequate volume status [ ]ii) Inadequate urine output as indicated by ANY ONE of the following: [ ]1) Urine output less than 0.3 mL/kg/hr for 24 hours [ ]2) Anuria (urine output less than 0.1 mL/kg/hr) for 12 hours [ ]XV. Significant uremic complications as indicated by ANY ONE of the following(58)(59)(60): [ ]a) Outpatient therapy is ineffective or not feasible for ANY ONE of the following: [ ]i) Severe heart failure [ ]ii) Severehypertension [ ]iii) Pleural effusion [ ]iv) Pericarditis or pericardial effusion [ ]b) Cardiac arrhythmias of immediate concern [ ]c) Intractable nausea or vomiting [ ]d) Recurrent seizures [ ]e) Encephalopathy [ ]f) Bleeding abnormalities (eg, platelet dysfunction) with active (eg, gastrointestinal) bleeding [ ]g) Dialysis indicated before long-term access or ambulatory arrangements can be made [ ]h) Significant metabolic or electrolyte abnormalities (eg, severe acidosis or hyperkalemia) [ ]XVI. High fever or other high-risk infection situation as indicated by ANY ONE of the following(61)(62)(63)(64): [ ]a) Outpatient and observation care antimicrobial treatment unavailable, not effective, or not appropriate [ ]b) Documented bacteremia [ ]c) Temperature greater than 40.5 degrees C (104.9 degrees F) ( oral) [ ]d) Temperature greater than 39.5 degrees C (103.1 degrees F) ( oral) or less than 36 degrees C (96.8 degrees F) (rectal) that does not respond to e treatment and observation care [ ] XVII. Temperature less than 95 degrees F (35 degrees C)(rectal)(65) [ ] XVIII. Severe nutritional abnormalities as indicated by ALL of the following (66)(67): [ ]a) Inability to tolerate or establish sufficient oral or other enteral nutrition in outpatient setting [ ]b) Parenteral nutrition regimen need that must be implemented on inpatient basis [ ] XIX. Severe electrolyte abnormalities indicated by ALL of the following(68) (69)(70): [ ]a) Electrolytes and associated findings are not as expected for patient baseline or acceptable treatment effects. [ ]b) Severe abnormalities indicated by ANY ONE of the following: [ ]i) Sodium less than 130 mEq/L (mmol/L) (new) [ ]ii)Sodium less than 135 mEq/L (mmol/L) with ANY ONE of the following: [ ]1) Uncorrectable (to near normal or chronic baseline) after trial of outpatient and emergency treatment [ ]2) Altered mental status [ ]3) Seizures [ ]4) Severe medical etiology requiring inpatient management (eg, heart failure, hypovolemia) [ ]iii) Sodium greater than 155 mEq/L (mmol/L) [ ]iv) Sodium greater than 150 mEq/L (mmol/L) with ANY ONE of the following: [ ]1) Uncorrectable (to near normal or chronic baseline) with outpatient and emergency treatment [ ]2) Altered mental status [ ]3) Seizures [ ]4) Severe medical etiology (eg, hypovolemia, diabetes insipidus) [ ]v) Potassium less than 2.5 mEq/L (mmol/L) despite outpatient and emergency treatment [ ]vi) Potassium less than 3 mEq/L (mmol/L) with ANY ONE of the following: [ ]1) Weakness [ ]2) Cardiac abnormality (eg, arrhythmia, conduction disturbance) [ ]3) Cardiac ischemia [ ]4) Ileus [ ]5) Ongoing medical cause requiring inpatient management (eg, acute renal wasting or SIADH) [ ]6) Other severe symptoms [ ]vii) Potassium greater than 6.5 mEq/L (mmol/L) [ ]viii) Potassium greater than 5 mEq/L (mmol/L) with ANY ONE of the following: [ ]1) Uncorrectable (to near normal or chronic baseline) with outpatient and emergency treatment [ ]2) Severe ECG findings [F] [ ]3) Acute worsening of renal failure (creatinine greater than 2.5 mg/dL (221 micromoles/L) or significant elevation for age and size) [ ]4) Severe weakness [ ]5) Severe medical etiology (eg, hemolysis, infection, drug overdose) [ ]ix) Calcium less than 7 mg/dL (1.75 mmol/L) despite outpatient and emergency treatment (72) [ ]x) Calcium less than 8 mg/dL (2 mmol/L) with significant symptoms or findings; examples include(72): [ ]1) Altered mental status [ ]2) Muscle spasms [ ]3) Seizures [ ]4) Breathing difficulty [ ]5) Cardiac abnormality (eg, arrhythmia or conduction disturbance) [ ]xi) Calcium greater than 14 mg/dL (3.5 mmol/L)(72) [ ]xii) Calcium greater than 12 mg/dL (3 mmol/L) with ANY ONE of the following(72): [ ]1) Uncorrectable (to near normal or chronic baseline) with outpatient and emergency treatment [ ]2) Significant dehydration or hypovolemia as indicated by ALL of the following(70)(73)(74): [ ]A. Not resolved with initial treatments [ ]B. Clinically significant dehydration as indicated by ANY ONE of the following: [ ]a. Vomiting refractory to outpatient treatment (ie, precluding oral rehydration) [ ]b. Inability to drink [ ]c. Hypernatremia or other electrolyte abnormality unable to be corrected with outpatient and emergency treatment [ ]d. Failure to remain hydrated with outpatient therapy [ ]e. Reduced urine output [ ]f. Hypotension [ ]g. Serious cause for dehydration requiring acute hospitalization (eg, bowel obstruction, increased intracranial pressure, infectious cause) [ ]h. Child with ANY ONE of the following(75): [ ]1) Severe abdominal tenderness [ ]2) Adequate care not available at home [ ]3) Severe dehydration ( greater than 9% loss of body weight) [ ]4) Significant symptoms or findings; examples include: [ ]A. Altered mental status [ ]B. Cardiac abnormality (eg, arrhythmia, conduction disturbance) [ ]C. Malignant etiology requiring inpatient treatment [ ]xiii) Phosphorus less than 1 mg/dL (0.32 mmol/L) [ ]xiv) Phosphorus less than 1.5 mg/dL (0.48 mmol/L) with ANY ONE of the following: [ ]1) Patient unresponsive to outpatient and emergency treatment [ ]2) Significant symptoms or findings; examples include: [ ]A. Weakness [ ]B. Altered mental status [ ]C. Breathing difficulty [ ]D. Seizures [ ]E. Rhabdomyolysis [ ]xv) Phosphorus greater than 10 mg/dL (3.2 mmol/L) [ ]xvi) Phosphorus greater than 4.5 mg/dL (1.45 mmol/L) (new) with ANY ONE of the following: [ ]1) Severe medical etiology (eg, crush injury, acute renal failure) [ ]2) Associated hypocalcemia with significant findings; examples include: [ ]A. Neurologic symptoms [ ]B. Altered mental status [ ]C. Muscle spasms [ ]D. Seizures [ ]E. Breathing difficulty [ ]F. Cardiac abnormality (eg, arrhythmia, conduction disturbance) [ ]xvii) Magnesium less than 1 mg/dL (0.41 mmol/L) [ ]xviii) Magnesium less than 1.5 mg/dL (0.62 mmol/L) with ANY ONE of the following: [ ]1) Patient unresponsive to outpatient and emergency treatment [ ]2) Associated hypocalcemia with significant findings; examples include: [ ]A. Altered mental status [ ]B. Muscle spasms [ ]C. Seizures [ ]D. Breathing difficulty [ ]E. Cardiac abnormality (eg, arrhythmia , conduction disturbance) [ ]3) Associated hypokalemia (potassium less than 3 mEq/L (mmol/L)) with risk of arrhythmia [ ]xix) Magnesium greater than 4 mEq/L (2 mmol/L) [ ]xx) Magnesium greater than 2.5 mEq/L (1.25 mmol/L) with significant symptoms or findings; examples include: [ ]1) Weakness [ ]2) Altered mental status [ ]3) Cardiac abnormality (eg, arrhythmia, conduction disturbance) [ ]4) Breathing difficulty [ ]5) Severe medical etiology (eg, renal failure, hypovolemia) [ ]xxi) Uric acid greater than 20 mg/dL (1190 micromoles/L)(76) [ ]xxii) Uric acid greater than 8 mg/dL (476 micromoles/L) with significant symptoms or findings of tumor lysis syndrome; examples include(76): [ ]1) Creatinine greater than 1.5 times upper limit of normal [ ]2) Cardiac abnormality (eg, arrhythmia, conduction disturbance) [ ]3) Seizure [ ]XX. Acute blood loss causing significant abnormality as indicated by ANY ONE of the following(77)(78): [ ]a) Hemoglobin less than 10 g/dL (100 g/L) (not baseline) [ ]b) Hematocrit less than 30% (0.30) (not baseline) [ ]c) Repeat hematocrit decreased more than 2% (0.02) [ ]d) Uncontrolled bleeding [ ]XXI. Severe anemia indicated by ANY ONE of the following(78)(79): [ ]a) Altered mental status [ ]b) Chest pain [ ]c) Exertional dyspnea [ ]d) Syncope [ ]e) Other findings suggesting inadequate perfusion [ ]f) Treatment with transfusion or volume replacement is ineffective at resolving ANY ONE of the following [G]: [ ]i) Tachycardia for age [ ]ii) Orthostatic vital sign changes as indicated by ANY ONE of the following(80): [ ]1) Fall in SBP of 20 mm Hg or more 1 to 3 minutes after patient sits or stands from recumbent position [ ]2) Fall in DBP of 10 mm Hg or more 1 to 3 minutes after patient sits or stands from recumbent position [ ]XXII. High-risk low platelet count as indicated by ANY ONE of the following( 81)(82): [ ]a) Severe or life-threatening bleeding (eg, intracranial, major gastrointestinal, or extensive mucosal bleeding), with any reduced platelet count [ ]b) Platelet count less than 20,000/mm3 (20 x109/L) with any active bleeding [ ]c) Platelet count less than 10,000/mm3 (10 x109/L) with minor purpura or petechiae [ ]d) Platelet count less than 5000/mm3 (5 x109/L) [ ]e) Low platelet count with hemolytic anemia [ ]XXIII. Disseminated intravascular coagulation(77)(83) [ ]XXIV. Severe adverse drug or systemic toxin reaction requiring inpatient treatment; examples include(84)(85): [ ]a) Serotonin syndrome(86) [ ]b) Neuroleptic malignant syndrome(86) [ ]c) Cholinergic syndrome with severe symptoms (eg, bronchorrhea, weakness, mental status changes, seizures) [ ]d) Sympathetic syndrome with severe symptoms (eg, seizures, mental status changes, cardiac dysrhythmias) [ ]e) Anticholinergic syndrome [ ]XXV. Severe pain requiring acute inpatient management as indicated by ALL of the following (87)(88)(89): [ ]a) Continuous or frequent (eg, every 2 to 4 hours) parenteral analgesics required [H] [ ]b) Rapid improvement expected from treatment or acute intervention (eg, surgery, anesthesia procedure) [ ]XXVI.Severe behavioral health issues judged unmanageable at a lower level of care (eg, residential) in a patient who is ANY ONE of the following(91) [ ]a) Acutely suicidal [ ]b) A danger to self (eg, self-mutilating or suicidal behavior) [ ]c) A danger to others (eg, assaultive or homicidal behavior) [ ]d) Incapacitated because of grave disability (eg, inability to provide for self at lower level of care) (92) [ ]XXVII. Inpatient monitoring needed; examples include(1)(3)(87)(93)(94)(95)(96 ): [ ]a) Vital signs, neurologic signs, or vascular checks more frequently than every 4 hours [ ]b) Cardiac or respiratory monitoring beyond the scope (eg, over 24 hours) of observation care [ ]c) Pulmonary artery catheter monitoring [ ]d) Suspected compartment syndrome(97) (98) [ ]e) Cerebral bleeding, hydrocephalus, or vasospasm monitoring [ ]f) Increased intracranial pressure or cerebral edema monitoring [ ]g) monitoring [ ]XXVIII. Treatment requiring inpatient care; examples include: [ ]a) IV fluid to replace significant ongoing losses (greater than 3 L/m2 per day)(53) [ ]b) High concentration oxygen (greater than 40%)(33)(99)(100) [ ]c) Frequent respiratory therapy (more frequently than every 4 hours) to maintain airflow rates greater than 60% of baseline(33)(99)(100) [ ]d) Epidural analgesia(87) [ ]e) IV anticoagulation, vasoactive, or antiarrhythmic medication(19 )(23) [ ]f) Acute thrombolytics (generally require 24 hours of observation )(101)(102) [ ]XXIX. Emergency procedures needed; examples include: [ ]a) Emergency inpatient surgery [ ]b) Temporary pacemaker placement(103) [ ]c) Chest tube placement with active evacuation (eg, suction, drainage)(104) [ ]d) Emergent cardioversion(105) [ ]e) Emergent cardiac or vascular procedures (eg, cardiac catheterization, angioplasty) (17)(18) [ ]f) Emergent dialysis access placement and institution(10)(106) [ ]g) Emergent pericardiocentesis(107) [ ]h) Emergent plasmapheresis or leukapheresis(83) [ ]i) Emergent tracheostomy The original [employer] content created by [employer] has been revised. The portions of the content which have been revised are identified through the use of italic text or in bold, and [employer] has neither reviewed nor approved the modified material. All other unmodified content is copyright [employer]. Please see references footnoted in the original [employer] edition 2016 Admission Criteria Met: Yes
[2017-02-14 13:50] LABS: Hemoglobin 9.1 gm/dl (11.8-15.2); Mean Corpuscular HGB Conc 31 % (32-34); Mean Corpuscular Volume 78 fl (84-94); Platelet Count 160 K/mm3 (140-440); Red Blood Count 3.74 M/mm3 (3.65-5.03); Red Cell Distribution Width 19.9 % (13.2-15.2)
[2017-02-14] MEDS ORDERED: MAXIPIME/NS 1 GM/100 ML 1 GM/100 ML BAG IV ONE (14:00)
[2017-02-14 14:01] LABS: INR 1.2 (0.87-1.13)
[2017-02-14 14:02] LABS: Partial Thromboplastin Time 40.4 Sec. (24.2-36.6)
[2017-02-14 14:05] LABS: Magnesium 2.4 mg/dL (1.7-2.3)
[2017-02-14 14:09] LABS: Alanine Aminotransferase 9 units/L (7-56); Albumin 2.7 g/dL (3.9-5); Albumin/Globulin Ratio 0.7 %; Alkaline Phosphatase 61 units/L (35-129); Anion Gap 19 mmol/L; BUN/Creatinine Ratio 72.72; Blood Urea Nitrogen 80 mg/dL (9-20); Calcium 8.8 mg/dL (8.4-10.2); Carbon Dioxide 26 mmol/L (22-30); Chloride 100.6 mmol/L (98-107); Glucose 93 mg/dL (75-100); Potassium 5.4 mmol/L (3.6-5.0); Sodium 140 mmol/L (137-145); Total Protein 6.6 g/dL (6.3-8.2)
[2017-02-14 14:10] LABS: Mean Corpuscular Hemoglobin 24 pg (28-32)
--- NOTE | 2017-02-14 14:16 | XRay Report ---
Single view chest: Compared to 01/16/17. History: Bradycardia. Findings: Borderline cardiomegaly. Trachea is midline. Bilateral diffuse interstitial infiltrates with mild pulmonary venous congestion. Suspected airspace opacities lower lobes. Normal CP angles. Impression: Probable early CHF. Clinical correlation and followup advised.
[2017-02-14] MEDS ORDERED: NACL ONE ×2 (14:29→15:44)
[2017-02-14 14:33] LABS: Cholesterol 56 mg/dL (50-199); HDL Cholesterol 21 mg/dL (40-59); LDL Cholesterol,Direct 14 mg/dL (50-130); Triglycerides 107 mg/dL (2-149)
--- NOTE | 2017-02-14 14:33 | Emergency Department Report ---
ED Chest Pain HPI - General Chief Complaint: Dyspnea/Respdistress Stated Complaint: CHEST PAIN /CONGESTION Time Seen by Provider: 02/14/17 13:24 Source: EMS, RN notes reviewed Mode of arrival: Stretcher Limitations: Language Barrier, Altered Mental Status - History of Present Illness Initial Comments: Sent from NH with complaints of Chest Pain. Unable to obtain history due to medical condition MD Complaint: chest pain - Related Data Home Medications Medication Instructions Recorded Confirmed Last Taken Aspirin [Adult Low Dose Aspirin EC] 81 mg PO DAILY 02/14/17 02/14/17 Unknown Furosemide (10 mg/ml) [Lasix ORAL 2 ml FEEDTUBE DAILY 02/14/17 02/14/17 Unknown SOLN] Isosorbide Dinitrate 30 mg PO DAILY 02/14/17 02/14/17 Unknown Previous Rx's Medication Instructions Recorded Last Taken Type Metformin HCl [Metformin HCl ER] 500 mg PO DAILY #60 [id number] 12/04/16 Unknown Rx Losartan [Cozaar] 12.5 mg PO QDAY #30 tablet 12/10/16 Unknown Rx Arformoterol Nebu [Brovana Nebu] 15 mcg IH Q12HRT #60 ml 01/19/17 Unknown Rx Budesonide [Pulmicort Respules] 0.5 mg IH Q12HRT #60 nebu 01/19/17 Unknown Rx Digoxin [Lanoxin] 0.125 mg PO DAILY@1700 #30 tablet 01/19/17 Unknown Rx Metoprolol Xl [Metoprolol 12.5 mg PO QDAY #30 tablet 01/19/17 Unknown Rx SUCCINATE ER TAB] Omeprazole 40 mg PO DAILY #30 capsule. 01/19/17 Unknown Rx Potassium Chloride [K-Dur] 10 meq PO QDAY #30 tablet 01/19/17 Unknown Rx Allergies Allergy/AdvReac Type Severity Reaction Status Date / Time No Known Allergies Allergy Verified 01/05/17 19:58 Heart Score - HEART Score History: Moderately suspicious EKG: Non-specific Age: > 65 Risk factors: > 3 risk factors or hx of atherosclerotic disease Troponin: 1-3x normal limit HEART Score: 7 ED Review of Systems ROS: Stated complaint: CHEST PAIN /CONGESTION Other details as noted in HPI Comment: Unobtainable due to pts medical conditions ED Past Medical Hx - Past Medical History Hx Hypertension: Yes Hx CVA: Yes Hx Heart Attack/AMI: Yes Hx Congestive Heart Failure: Yes Hx Diabetes: Yes Hx GERD: Yes Hx Liver Disease: No Hx Renal Disease: Yes Hx HIV: No Additional medical history: cardiomegaly,elevated cholesterol,enlarged prostate, CAD - Surgical History Hx Coronary Stent: Yes Hx Open Heart Surgery: Yes (CABG 2006) Hx Pacemaker: (DEFIB) Hx Internal Defibrillator: Yes Additional Surgical History: heart cath 2011. Ejection Fraction LVEF 50% via echo 06/22/15 - Social History Smoking Status: Unknown if ever smoked - Medications Home Medications: Home Medications Medication Instructions Recorded Confirmed Last Taken Type Metformin HCl [Metformin HCl ER] 500 mg PO DAILY #60 [id number] 12/04/16 Unknown Rx Losartan [Cozaar] 12.5 mg PO QDAY #30 tablet 12/10/16 02/14/17 Unknown Rx Arformoterol Nebu [Brovana Nebu] 15 mcg IH Q12HRT #60 ml 01/19/17 02/14/17 Unknown Rx Budesonide [Pulmicort Respules] 0.5 mg IH Q12HRT #60 nebu 01/19/17 02/14/17 Unknown Rx Digoxin [Lanoxin] 0.125 mg PO DAILY@1700 #30 tablet 01/19/17 02/14/17 Unknown Rx Metoprolol Xl [Metoprolol 12.5 mg PO QDAY #30 tablet 01/19/17 02/14/17 Unknown Rx SUCCINATE ER TAB] Omeprazole 40 mg PO DAILY #30 capsule. 01/19/17 02/14/17 Unknown Rx Potassium Chloride [K-Dur] 10 meq PO QDAY #30 tablet 01/19/17 02/14/17 Unknown Rx Aspirin [Adult Low Dose Aspirin EC] 81 mg PO DAILY 02/14/17 02/14/17 Unknown History Furosemide (10 mg/ml) [Lasix ORAL 2 ml FEEDTUBE DAILY 02/14/17 02/14/17 Unknown History SOLN] Isosorbide Dinitrate 30 mg PO DAILY 02/14/17 02/14/17 Unknown History ED Physical Exam - General Limitations: Language Barrier, Altered Mental Status - Other Other exam information: GENERAL: Patient in acute distress HEAD: Normocephalic, atraumatic HEART: Hypotensive, Regular rate and rhythm, no murmur, S1-S2 are auscultated, pulses are symmetric LUNGS: wheezing, tachypnea, retractions, ronchi ABDOMEN: Normal bowel sounds, no tenderness, no rebound, no guarding, no masses , no CVA tenderness MUSCULOSKELETAL: Normal joint range of motion, no redness, no swelling, no tenderness NEUROLOGIC: alert, grossly neurovascularly intact SKIN: Skin is warm and dry ED Course Vital Signs 02/14/17 02/14/17 02/14/17 12:45 12:50 13:00 Temperature Pulse Rate 85 87 Respiratory 33 H 44 H Rate Blood Pressure 93/52 64/32 O2 Sat by Pulse 93 86 93 Oximetry 02/14/17 02/14/17 02/14/17 13:01 13:10 13:20 Temperature 99.1 F Pulse Rate 88 79 86 Respiratory 35 H 38 H 41 H Rate Blood Pressure 93/52 64/32 84/46 O2 Sat by Pulse 90 86 85 Oximetry 02/14/17 02/14/17 02/14/17 13:30 13:40 13:50 Temperature Pulse Rate 85 86 89 Respiratory 43 H 42 H 35 H Rate Blood Pressure 81/44 81/44 64/32 O2 Sat by Pulse 98 91 82 L Oximetry 02/14/17 02/14/17 02/14/17 14:00 14:10 14:20 Temperature Pulse Rate 91 H 92 H 93 H Respiratory 44 H 47 H 47 H Rate Blood Pressure 95/53 95/53 91/41 O2 Sat by Pulse 79 L 90 90 Oximetry 02/14/17 02/14/17 02/14/17 14:30 14:40 14:50 Temperature Pulse Rate 96 H 96 H 98 H Respiratory 44 H 37 H 29 H Rate Blood Pressure 81/51 92/44 90/50 O2 Sat by Pulse 93 88 90 Oximetry 02/14/17 02/14/17 02/14/17 15:00 15:05 15:10 Temperature Pulse Rate 100 H 98 H Respiratory 48 H 27 H 32 H Rate Blood Pressure 99/44 99/44 O2 Sat by Pulse 89 96 94 Oximetry 02/14/17 02/14/17 02/14/17 15:20 15:30 15:50 Temperature Pulse Rate 97 H 98 H 100 H Respiratory 28 H 35 H 27 H Rate Blood Pressure 92/44 94/45 94/45 O2 Sat by Pulse 96 97 99 Oximetry 02/14/17 02/14/17 02/14/17 16:00 16:10 16:20 Temperature Pulse Rate 99 H 102 H 101 H Respiratory 31 H 26 H 33 H Rate Blood Pressure 88/45 89/43 94/45 O2 Sat by Pulse 100 96 95 Oximetry 02/14/17 02/14/17 02/14/17 16:30 16:40 16:50 Temperature Pulse Rate 99 H 100 H 98 H Respiratory 26 H 27 H 29 H Rate Blood Pressure 91/44 91/44 91/44 O2 Sat by Pulse 96 97 91 Oximetry 02/14/17 02/14/17 02/14/17 17:00 17:10 17:20 Temperature Pulse Rate 96 H 96 H 94 H Respiratory 35 H 32 H 24 Rate Blood Pressure 94/48 94/48 94/48 O2 Sat by Pulse 95 94 96 Oximetry 02/14/17 02/14/17 02/14/17 17:30 17:40 17:50 Temperature Pulse Rate 95 H 96 H 95 H Respiratory 21 26 H 27 H Rate Blood Pressure 103/51 103/51 103/51 O2 Sat by Pulse 90 95 92 Oximetry 02/14/17 02/14/17 02/14/17 18:00 18:10 18:20 Temperature Pulse Rate 92 H 96 H 95 H Respiratory 28 H 18 21 Rate Blood Pressure 93/54 93/54 93/54 O2 Sat by Pulse 90 99 98 Oximetry 02/14/17 02/14/17 02/14/17 18:30 18:40 18:50 Temperature Pulse Rate 95 H 94 H 99 H Respiratory 31 H 29 H 30 H Rate Blood Pressure 97/53 97/53 97/53 O2 Sat by Pulse 98 99 89 Oximetry KASSANDRA score - Kassandra Score Age > 65: (1) Yes Aspirin use within the Past 7 Days: (1) Yes 3 or more CAD Risk Factors: (1) Yes 2 or more Angina events in past 24 hrs: (1) Yes Known CAD with more than 50% Stenosis: (0) No Elevated Cardiac Markers: (0) No ST Deviation Greater than 0.5mm: (0) No KASSANDRA Score: 4 ED Medical Decision Making - Lab Data Result diagrams: 02/14/17 13:30 02/14/17 13:27 - EKG Data When compared to previous EKG there are: changes noted - Radiology Data Radiology results: report reviewed - Medical Decision Making At 1304 Dr. Mcqueen request contact [facility] for recommendation on [place] [facility] prior patient. At 1318 Dr. Hernandez recommends no acute intervention. Recommends continue work- up and consult cardiolgy. At 1323 [facility] cardiology reprots patient had Cath that showed patent vessels. Request consult cardiology. At 1430 Hospitalists accepts admission. [facility] recommends no acute intervention. Reports vessels were patent on cath in May 2016. 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 Unable to obtain adequate history at this time from patient. Critical Care Time: Yes Critical care time in (mins) excluding proc time.: 42 Critical care attestation.: If time is entered above; I have spent that time in minutes in the direct care of this critically ill patient, excluding procedure time. ED Disposition Clinical Impression: Respiratory distress, Acute respiratory failure with hypoxia, Elevated troponin Sepsis Qualifiers: Sepsis type: sepsis due to unspecified organism Qualified Code(s): A41.9 - Sepsis, unspecified organism Acute exacerbation of congestive heart failure Qualifiers: Congestive heart failure type: combined Qualified Code(s): I50.43 - Acute on chronic combined systolic (congestive) and diastolic (congestive) heart failure Pneumonia Qualifiers: Pneumonia type: due to unspecified organism Laterality: bilateral Lung location : unspecified part of lung Qualified Code(s): J18.9 - Pneumonia, unspecified organism Disposition: DC-09 OP ADMIT IP TO THIS HOSP Is pt being admited?: Yes Condition: Stable
[2017-02-14 14:42] LABS: Anisocytosis 1+; Basophils % (Manual) 0 % (0.0-1.8); Blastocytes % (Manual) 0 %; Eosinophils % (Manual) 0 % (0.0-4.3); Hypochromasia 1+
[2017-02-14 14:43] LABS: Diff Status Complete
[2017-02-14 14:46] LABS: ISTAT Base Excess -3; ISTAT HCO3 21.5; ISTAT PCO2 33.6 (35-45); ISTAT PH 7.413 (7.35-7.45); ISTAT PO2 60 (80-105); ISTAT SO2 91; ISTAT TCO2 22
--- NOTE | 2017-02-14 15:56 | Consultation ---
History of Present Illness Consult date: 02/14/17 Consult reason: elevated troponin, known to you History of present illness: This is a frail 76-year-old Occitan male who speaks little Macanese. He has an extensive history of coronary artery disease and ischemic cardiomyopathy. In 2007, he underwent three-way coronary artery bypass. A left internal mammary artery graft was placed to the LAD, and a sequential saphenous vein graft to the mid obtuse marginal and the posterior left ventricular branch of the circumflex system. He also has paroxysmal atrial fibrillation but is not on anticoagulation due to GI bleed on a recent admission. Since his bypass graft, he has had multiple cardiac catheterizations in 2007, 2009 and most recently May 2016. All 3 bypass grafts have remained patent , and he is on medical therapy for small vessel coronary disease. Ejection fraction 25-30%. An echocardiogram a month ago demonstrats an improved EF of 45- 50%. It's reported the patient presented from the [place] with shortness of breath and chest pain now admitted into the hospital with pneumonia. Cardiology consultation is requested. His presenting ECG shows a sinus rhythm with marked twave abnormalities. These changes has been seen on prior ECG dating back to 2011. Medications and Allergies Allergies Allergy/AdvReac Type Severity Reaction Status Date / Time No Known Allergies Allergy Verified 01/05/17 19:58 Home Medications Medication Instructions Recorded Confirmed Last Taken Type ALBUTEROL NEB's [Proventil 0.083% 2.5 mg IH Q4HRT PRN #1 nebu 12/04/16 01/05/17 Unknown Rx NEBS] AtorvaSTATin [Lipitor] 20 mg PO QHS #30 tablet 12/04/16 01/05/17 Unknown Rx Metformin HCl [Metformin HCl ER] 500 mg PO DAILY #60 [id number] 12/04/16 Unknown Rx Ranolazine ER [Ranexa ER] 500 mg PO BID #60 tablet 12/04/16 01/05/17 Unknown Rx Tamsulosin [Flomax] 0.4 mg PO QDAY #30 capsule 12/04/16 01/05/17 Unknown Rx predniSONE [Deltasone] 20 mg PO QDAY #10 tablet 12/04/16 01/05/17 Unknown Rx ISOSORBIDE MONOnitrate [Imdur ER] 30 mg PO DAILY tablet 12/08/16 01/05/17 Unknown Rx Losartan [Cozaar] 12.5 mg PO QDAY #30 tablet 12/10/16 01/05/17 Unknown Rx Arformoterol Nebu [Brovana Nebu] 15 mcg IH Q12HRT #60 ml 01/19/17 Unknown Rx AtorvaSTATin [Lipitor] 40 mg PO QHS #30 tablet 01/19/17 Unknown Rx Budesonide [Pulmicort Respules] 0.5 mg IH Q12HRT #60 nebu 01/19/17 Unknown Rx Dexlansoprazole [Dexilant] 60 mg PO QDAY #30 cap.bp 01/19/17 Unknown Rx Digoxin [Lanoxin] 0.125 mg PO DAILY@1700 #30 tablet 01/19/17 Unknown Rx Furosemide [Lasix TAB] 20 mg PO QDAY #30 tablet 01/19/17 Unknown Rx Insulin Regular, Human [HumuLIN R] 0 units SUB-Q Q6HR units 01/19/17 Unknown Rx Ipratropium/Albuterol Sulfate 1 ampul IH Q6HRT ampul.neb 01/19/17 Unknown Rx [Duoneb 0.5 mg-3 mg/3 ml Soln] Metoprolol Xl [Metoprolol 12.5 mg PO QDAY #30 tablet 01/19/17 Unknown Rx SUCCINATE ER TAB] Omeprazole 40 mg PO DAILY #30 capsule. 01/19/17 Unknown Rx Polyethylene Glycol 3350 [Miralax 17 gm PO BID #30 packet 01/19/17 Unknown Rx 3350] Potassium Chloride [K-Dur] 10 meq PO QDAY #30 tablet 01/19/17 Unknown Rx Physical Examination Vital Signs Pulse Ox 93 02/14/17 12:45 General appearance: no acute distress Cardiac: Positive: Reg Rate and Rhythm Lungs: Positive: Rales Results 02/14/17 13:30 02/14/17 13:27 Cardiac Enzymes 02/14/17 Range/Units 13:27 AST 20 (5-40) units/L Coagulation 02/14/17 Range/Units 13:27 PT 15.1 H (12.2-14.9) Sec. INR 1.20 H (0.87-1.13) APTT 40.4 H (24.2-36.6) Sec. Lipids 02/14/17 Range/Units 13:27 Triglycerides 107 (2-149) mg/dL Cholesterol 56 (50-199) mg/dL HDL Cholesterol 21 L (40-59) mg/dL Cholesterol/HDL Ratio 2.66 % CBC 02/14/17 Range/Units 13:30 WBC 13.0 H (4.5-11.0) K/mm3 RBC 3.74 (3.65-5.03) M/mm3 Hgb 9.1 L (11.8-15.2) gm/dl Hct 29.0 L (35.5-45.6) % Plt Count 160 (140-440) K/mm3 Comprehensive Metabolic Panel 02/14/17 Range/Units 13:27 Sodium 140 (137-145) mmol/L Potassium 5.4 H (3.6-5.0) mmol/L Chloride 100.6 (98-107) mmol/L Carbon Dioxide 26 (22-30) mmol/L BUN 80 H (9-20) mg/dL Creatinine 1.1 (0.8-1.5) mg/dL Glucose 93 (75-100) mg/dL Calcium 8.8 (8.4-10.2) mg/dL AST 20 (5-40) units/L ALT 9 (7-56) units/L Alkaline Phosphatase 61 (35-129) units/L Total Protein 6.6 (6.3-8.2) g/dL Albumin 2.7 L (3.9-5) g/dL Assessment and Plan Pneumonia no evidence of PE by V\Q scan Acute respiratory failure Paroxysmal Afib currently in sinus rhythm not on anticoagulation due to recent GI bleed on digoxin and coreg as an outpatient for suppression Hx of Ischemic Cardiomyopathy EF improved EF 45-50% on echo 01/2017 Hx of CAD s/p 3 way CABG [facility] 05/2016 reports 3 bypass grafts have remained patent, and he is on medical therapy for small vessel coronary disease. Ejection fraction 25-30%. Diabetes mellitus Nonspecific elevated troponin Hyperkalemia
--- NOTE | 2017-02-14 16:07 | Cat Scan Report ---
CTA chest: History: Chest pain. Findings: Ascending aortic diameter 3.5 cm. 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 Also noted atherosclerotic ulcer at the descending thoracic aorta. No evidence of pulmonary embolism. Bilateral diffuse patchy airspace opacities. No pleural or pericardial effusion. No mediastinal mass. Impression: No evidence of pulmonary embolism. Thoracic aortic changes as detailed above. Diffuse patchy airspace opacities bilaterally suggestive pneumonitis and less likely pulmonary edema.
[2017-02-14] MEDS ORDERED: DULCOLAX PR PRN (16:59)
[2017-02-14] MEDS ORDERED: SIMPLE SYRUP FEEDTUBE PRN ×2 (16:59)
[2017-02-14] MEDS ORDERED: MILK OF MAGNESIA PO PRN (16:59)
[2017-02-14] MEDS ORDERED: PANCREAZE DR 10,500 UNIT FEEDTUBE PRN (16:59)
[2017-02-14] MEDS ORDERED: D50W (25GM) IV PRN (16:59)
[2017-02-14] MEDS ORDERED: ALUM-MAG HYDROX-SIMETH 200-200-20MG/5ML PO PRN (16:59)
--- NOTE | 2017-02-14 17:29 | History and Physical Report ---
History of Present Illness Date of examination: 02/14/17 Chief complaint: Patient transferred from long term for lethargy and dyspnea History of present illness: 75-year-old Laotian male was transferred from long term due to shortness of breath and increasing lethargy Patient is quite lethargic but arousable. Moderately short of breath. Unable to get any significant history He denies any chest pain or body aches. He has been coughing frequently but has poor respiratory effort Upon further workup he was noted to have bilateral patchy infiltrates which was suggestive of pneumonia and less likely pulmonary edema He has history of ischemic cardiomyopathy with ejection fraction of 45% and history of coronary artery disease I reviewed a cardiology consult note and they recommended medical management for his cardiac conditions He is also hypotensive with significant prerenal azotemia and is being admitted to intensive care unit History otherwise is limited due to his poor [place]i and lethargy Past History Past Medical History: atrial fib (history of paroxysmal atrial fibrillation not on anticoagulation due to history of GI bleed), anemia, CAD, diabetes, GERD, stroke Past Surgical History: CABG, Other (PEG tube) Social history: other (not available at this time) Medications and Allergies Allergies Allergy/AdvReac Type Severity Reaction Status Date / Time No Known Allergies Allergy Verified 01/05/17 19:58 Home Medications Medication Instructions Recorded Confirmed Last Taken Type Metformin HCl [Metformin HCl ER] 500 mg PO DAILY #60 [id number] 12/04/16 Unknown Rx Losartan [Cozaar] 12.5 mg PO QDAY #30 tablet 12/10/16 02/14/17 Unknown Rx Arformoterol Nebu [Brovana Nebu] 15 mcg IH Q12HRT #60 ml 01/19/17 02/14/17 Unknown Rx Budesonide [Pulmicort Respules] 0.5 mg IH Q12HRT #60 nebu 01/19/17 02/14/17 Unknown Rx Digoxin [Lanoxin] 0.125 mg PO DAILY@1700 #30 tablet 01/19/17 02/14/17 Unknown Rx Metoprolol Xl [Metoprolol 12.5 mg PO QDAY #30 tablet 01/19/17 02/14/17 Unknown Rx SUCCINATE ER TAB] Omeprazole 40 mg PO DAILY #30 capsule. 01/19/17 02/14/17 Unknown Rx Potassium Chloride [K-Dur] 10 meq PO QDAY #30 tablet 01/19/17 02/14/17 Unknown Rx Aspirin [Adult Low Dose Aspirin EC] 81 mg PO DAILY 02/14/17 02/14/17 Unknown History Furosemide (10 mg/ml) [Lasix ORAL 2 ml FEEDTUBE DAILY 02/14/17 02/14/17 Unknown History SOLN] Isosorbide Dinitrate 30 mg PO DAILY 02/14/17 02/14/17 Unknown History Active Meds: Active Medications Al Hydrox/Mg Hydrox/Simethicone (Alum-Mag Hydrox-Simeth [id number]/5ml) 30 ml PO Q4H PRN PRN Reason: Indigestion Lipase/Protease/Amylase (Pancreaze Dr 10,500 Unit) 1 each FEEDTUBE PRN PRN PRN Reason: For Clogged Feeding Tube Bisacodyl (Dulcolax) 10 mg GA QDAY PRN PRN Reason: constipation unrelieved by MOM Dextrose (D50w (25gm)) 50 ml IV PRN PRN PRN Reason: Hypoglycemia Heparin Sodium (Porcine) (Heparin) 5,000 unit SUB-Q Q8HR LOCO Sodium Chloride (Nacl 0.9% 1000 Ml) 1,000 mls @ 100 mls/hr IV DIRECT ONE Stop: 02/15/17 02:23 Last Admin: 02/14/17 16:28 Dose: 100 mls/hr Sodium Chloride (Nacl 0.9% 1000 Ml) 1,000 mls @ 100 mls/hr IV DIRECT LOCO Cefepime HCl (Maxipime/Ns 1 Gm/100 Ml) 1 gm in 100 mls @ 200 mls/hr IV Q12HR LOCO PRN Reason: Protocol Insulin Aspart (Novolog) 0 units SUB-Q ACHS LOCO PRN Reason: Protocol Magnesium Hydroxide (Milk Of Magnesia) 30 ml PO Q4H PRN PRN Reason: Constipation Morphine Sulfate (Morphine) 1 mg IV Q4H PRN PRN Reason: Pain, Moderate (4-6) Simple Syrup (Simple Syrup) 15 ml FEEDTUBE PRN PRN PRN Reason: Hypoglycemia Simple Syrup (Simple Syrup) 30 ml FEEDTUBE PRN PRN PRN Reason: Hypoglycemia Review of Systems All systems: negative (as stated above in the history of present illness otherwise unobtainable at this time) Exam - Constitutional Vitals: Temp Pulse Resp BP Pulse Ox 99.1 F 96 H 35 H 94/48 95 02/14/17 13:01 02/14/17 17:00 02/14/17 17:00 02/14/17 17:00 02/14/17 17:00 General appearance: Present: mild distress (moderate respiratory distress, on Ventimask with oxygen saturation of 94-95%) - EENT Eyes: Present: PERRL, EOM intact ENT: hearing intact, clear oral mucosa - Neck Neck: Present: supple, normal ROM. Absent: masses or JVD, carotid bruits - Respiratory Respiratory: bilateral: rales, rhonchi - Cardiovascular Rhythm: regular Heart Sounds: Present: S1 & S2 - Extremities Extremities: No edema - Abdominal General gastrointestinal: Present: soft, non-tender. Absent: hepatomegaly, splenomegaly Male genitourinary: Present: deferred - Rectal Rectal Exam: deferred - Integumentary Integumentary: Present: clear - Neurologic Neurologic: other (Limited exam, not following simple commands) Results - Labs CBC & Chem 7: 02/14/17 13:30 02/14/17 13:27 Labs: Abnormal lab results 02/14/17 02/14/17 02/14/17 Range/Units 13:27 13:27 13:27 WBC (4.5-11.0) K/mm3 Hgb (11.8-15.2) gm/dl Hct (35.5-45.6) % MCV (84-94) fl MCH (28-32) pg MCHC (32-34) % RDW (13.2-15.2) % Lymphocytes % (Manual) (13.4-35.0) % Lymphocytes # (Manual) (1.2-5.4) K/mm3 PT 15.1 H (12.2-14.9) Sec. INR 1.20 H (0.87-1.13) APTT 40.4 H (24.2-36.6) Sec. POC ABG pCO2 (35-45) POC ABG pO2 (80-105) Potassium 5.4 H (3.6-5.0) mmol/L BUN 80 H (9-20) mg/dL Magnesium 2.40 H (1.7-2.3) mg/dL Total Creatine Kinase 27 L (55-170) units/L Troponin T 0.137 H* (0.00-0.029) ng/mL NT-Pro-B Natriuret Pep 8219 H (0-900) pg/mL Albumin 2.7 L (3.9-5) g/dL LDL Cholesterol Direct 14 L (50-130) mg/dL HDL Cholesterol 21 L (40-59) mg/dL 02/14/17 02/14/17 02/14/17 Range/Units 13:30 14:29 15:57 WBC 13.0 H (4.5-11.0) K/mm3 Hgb 9.1 L (11.8-15.2) gm/dl Hct 29.0 L (35.5-45.6) % MCV 78 L (84-94) fl MCH 24 L (28-32) pg MCHC 31 L (32-34) % RDW 19.9 H (13.2-15.2) % Lymphocytes % (Manual) 2.0 L (13.4-35.0) % Lymphocytes # (Manual) 0.3 L (1.2-5.4) K/mm3 PT (12.2-14.9) Sec. INR (0.87-1.13) APTT (24.2-36.6) Sec. POC ABG pCO2 33.6 L (35-45) POC ABG pO2 60 L (80-105) Potassium (3.6-5.0) mmol/L BUN (9-20) mg/dL Magnesium (1.7-2.3) mg/dL Total Creatine Kinase (55-170) units/L Troponin T 0.086 H D (0.00-0.029) ng/mL NT-Pro-B Natriuret Pep (0-900) pg/mL Albumin (3.9-5) g/dL LDL Cholesterol Direct (50-130) mg/dL HDL Cholesterol (40-59) mg/dL Assessment and Plan - Patient Problems (1) Acute respiratory failure with hypoxia Current Visit: Yes Status: Acute Plan to address problem: We will admit the patient to ICU oxygen via Ventimask Pulmonary consult on board Nebulizer treatments with DuoNeb solution Inhalation steroids and long-acting bronchodilators (2) Acute renal failure Current Visit: Yes Status: Acute Qualifiers: Acute renal failure type: A Plan to address problem: Prerenal Start on IV fluids and monitor renal function (3) Microcytic anemia Current Visit: Yes Status: Chronic Plan to address problem: Monitor H&H No overt bleed (4) Elevated troponin Current Visit: Yes Status: Acute Plan to address problem: Medical management per cardiology recommendations (5) Pneumonia Current Visit: Yes Status: Acute Qualifiers: Pneumonia type: due to unspecified organism Aspiration pneumonia type: A Laterality: bilateral Lung location: unspecified part of lung Qualified Code (s): J18.9 - Pneumonia, unspecified organism Plan to address problem: Blood cultures Started on IV antibiotics Await pulmonary evaluation (6) Sepsis Current Visit: Yes Status: Acute Qualifiers: Sepsis type: sepsis due to unspecified organism Qualified Code(s): A41.9 - Sepsis, unspecified organism Plan to address problem: Suspected sepsis, based on hypotension leukocytosis and the pneumonia Continue IV antibiotics and serial lactic acid levels (7) Hypotension Current Visit: No Status: Acute Qualifiers: Hypotension type: unspecified hypotension type Trimester: T Qualified Code(s): I95.9 - Hypotension, unspecified Plan to address problem: No recommendations for any vasopressor spent cardiology at this time Continue IV fluids (8) Ischemic cardiomyopathy Current Visit: No Status: Acute Plan to address problem: Cardiology note reviewed Medical management (9) Gastroesophageal reflux disease Current Visit: No Status: Chronic Qualifiers: Esophagitis presence: without esophagitis Qualified Code(s): K21.9 - Gastro -esophageal reflux disease without esophagitis Plan to address problem: Continue PPI (10) T2DM (type 2 diabetes mellitus) Current Visit: No Status: Chronic Qualifiers: Diabetes mellitus complication status: without complication Diabetes mellitus complication detail: D Diabetic retinopathy severity: D Proliferative retinopathy type: P Diabetes mellitus macular edema: D Diabetes mellitus retirement insulin use: D Laterality: L Chronic kidney disease stage: C Plan to address problem: Sliding scale coverage with insulin protocol Total time spent 50 minutes
[2017-02-14] MEDS ORDERED: NACL 0.9% 1000 ML 1,000 ML IV SCH (18:00)
[2017-02-14] MEDS: PULMICORT IH SCH (21:22)
[2017-02-14] MEDS: DUONEB 0.5 MG-3 MG/3 ML SOLN IH SCH (21:50)
[2017-02-14] MEDS: BROVANA NEBU IH SCH (21:50)
[2017-02-14] MEDS: HEPARIN SUB-Q SCH (23:42)
[2017-02-14] MEDS: NOVOLOG SUB-Q SCH (23:42)
[2017-02-15] MEDS ORDERED: MAXIPIME/NS 1 GM/100 ML 1 GM/100 ML BAG IV SCH (04:00)
[2017-02-15 05:52] LABS: Blood Urea Nitrogen 52 mg/dL (9-20); Calcium 7.9 mg/dL (8.4-10.2); Carbon Dioxide 20 mmol/L (22-30); Glucose 114 mg/dL (75-100)
[2017-02-15 05:53] LABS: Anion Gap 20 mmol/L; Chloride 110.9 mmol/L (98-107); Hematocrit 31.2 % (35.5-45.6); Hemoglobin 9.6 gm/dl (11.8-15.2); Mean Corpuscular HGB Conc 31 % (32-34); Mean Corpuscular Volume 79 fl (84-94); Platelet Count 140 K/mm3 (140-440); Potassium 4.7 mmol/L (3.6-5.0); Red Blood Count 3.94 M/mm3 (3.65-5.03); Red Cell Distribution Width 19.9 % (13.2-15.2); Sodium 146 mmol/L (137-145); White Blood Count 7.3 K/mm3 (4.5-11.0)
[2017-02-15] MEDS: HEPARIN SUB-Q SCH ×3 (06:05→22:50)
[2017-02-15 06:25] LABS: Mean Corpuscular Hemoglobin 24 pg (28-32)
[2017-02-15 07:42] LABS: Anisocytosis 1+; Basophils % (Manual) 0 % (0.0-1.8); Blastocytes % (Manual) 0 %; Diff Status Complete; Eosinophils % (Manual) 0 % (0.0-4.3); Hypochromasia Few
[2017-02-15] MEDS: NOVOLOG SUB-Q SCH ×4 (08:51→22:55)
[2017-02-15] MEDS: DUONEB 0.5 MG-3 MG/3 ML SOLN IH SCH ×4 (08:52→19:51)
[2017-02-15] MEDS: BROVANA NEBU IH SCH ×2 (08:57→19:51)
[2017-02-15] MEDS: PULMICORT IH SCH ×2 (08:58→19:51)
[2017-02-15] MEDS ORDERED: PROVENTIL IH PRN (09:06)
--- NOTE | 2017-02-15 11:40 | Progress Note ---
Assessment and Plan Pneumonia Acute respiratory failure no evidence of PE by V\Q scan Paroxysmal Afib currently in sinus rhythm not on anticoagulation due to recent GI bleed on digoxin and coreg as an outpatient for suppression Hx of Ischemic Cardiomyopathy EF improved EF 45-50% on echo 01/2017 He does NOT yet have an internal cardiac defibrillator. Hx of CAD s/p 3 way CABG [facility] 05/2016 reports 3 bypass grafts have remained patent, and he is on medical therapy for small vessel coronary disease. Ejection fraction 25-30%. Diabetes mellitus Nonspecific elevated troponin Hyperkalemia Subjective Date of service: 02/15/17 Interval history: Patient speaks little Venezuelan. Venturi mask in place. No distress noted. Objective Vital Signs Temp Pulse Pulse Pulse Resp Resp Resp 02/15/17 09:09 92 H 20 02/15/17 08:59 02/15/17 08:53 91 H 20 02/15/17 08:51 02/15/17 08:00 97.5 F L 02/15/17 06:00 89 18 02/15/17 05:50 93 H 23 02/15/17 05:40 95 H 22 02/15/17 05:30 92 H 22 02/15/17 05:20 90 21 02/15/17 05:10 90 25 H 02/15/17 05:00 91 H 28 H 02/15/17 04:50 93 H 40 H 02/15/17 04:49 91 H 02/15/17 04:40 93 H 28 H 02/15/17 04:30 90 18 02/15/17 04:24 90 22 02/15/17 04:00 97.2 F L 02/15/17 03:10 91 H 27 H 02/15/17 03:00 92 H 31 H 02/15/17 02:50 93 H 25 H 02/15/17 02:40 90 25 H 02/15/17 02:30 90 22 02/15/17 02:20 88 22 02/15/17 02:10 90 27 H 02/15/17 02:00 91 H 28 H 02/15/17 01:50 89 22 02/15/17 01:40 94 H 25 H 02/14/17 23:30 97 H 20 02/14/17 23:16 102 H 20 02/14/17 23:00 101 H 24 02/14/17 22:46 101 H 26 H 06/14/17 22:30 100 H 26 H 02/14/17 22:16 104 H 17 02/14/17 22:00 101 H 21 02/14/17 21:51 90 20 02/14/17 21:46 97 H 23 02/14/17 21:30 96 H 22 02/14/17 21:16 96 H 25 H 02/14/17 21:00 96 H 22 02/14/17 20:46 95 H 21 02/14/17 20:30 93 H 20 02/14/17 20:16 95 H 25 H 02/14/17 20:00 95 H 24 02/14/17 19:46 95 H 24 02/14/17 19:40 97.5 F L 02/14/17 19:30 95 H 23 02/14/17 19:16 97 H 22 02/14/17 19:00 95 H 24 02/14/17 18:50 99 H 30 H 02/14/17 18:40 94 H 29 H 02/14/17 18:30 95 H 31 H 02/14/17 18:20 95 H 21 02/14/17 18:10 96 H 18 02/14/17 18:00 92 H 28 H 02/14/17 17:50 95 H 27 H 02/14/17 17:40 96 H 26 H 02/14/17 17:30 95 H 21 02/14/17 17:20 94 H 24 02/14/17 17:10 96 H 32 H 02/14/17 17:00 96 H 35 H BP Pulse Ox 02/15/17 09:09 02/15/17 08:59 99 02/15/17 08:53 02/15/17 08:51 97 02/15/17 08:00 02/15/17 06:00 121/67 97 02/15/17 05:50 113/65 97 02/15/17 05:40 113/65 98 02/15/17 05:30 113/65 97 02/15/17 05:20 113/65 100 02/15/17 05:10 115/68 97 02/15/17 05:00 115/68 99 02/15/17 04:50 113/65 100 02/15/17 04:49 02/15/17 04:40 113/65 98 02/15/17 04:30 113/65 100 1517 04:24 100 02/15/17 04:00 02/15/17 03:10 95/54 93 15 03:00 88/52 94 1517 02:50 97/57 96 1517 02:40 97/57 94 1517 02:30 95/54 98 1517 02:20 97/57 97 02/15/17 02:10 97/57 98 02/15/17 02:00 97/57 99 1517 01:50 109/63 97 1517 01:40 109/63 100 14 23:30 97/51 94 14 23:16 97/53 87 02/14/17 23:00 97/53 91 1417 22:46 103/52 90 1417 22:30 103/52 92 1417 22:16 89/48 95 02/14/17 22:00 89/48 100 17 21:51 061417 21:46 93/50 100 1417 21:30 93/50 96 14/17 21:16 101/57 92 14 21:00 101/57 97 1417 20:46 100/53 97 1417 20:30 100/53 96 1417 20:16 95/52 95 1417 20:00 95/52 90 1417 19:46 101/53 92 1417 19:40 1417 19:30 101/53 89 1417 19:16 94/55 91 1417 19:00 94/55 94 14/17 18:50 97/53 89 1417 18:40 97/53 99 14/17 18:30 97/53 98 14/17 18:20 93/54 98 14/17 18:10 93/54 99 1417 18:00 93/54 90 14/17 17:50 103/51 92 14/17 17:40 103/51 95 1417 17:30 103/51 90 06/14/17 17:20 94/48 96 02/14/17 17:10 94/48 94 02/14/17 17:00 94/48 95 - Physical Examination General: No Apparent Distress HEENT: Positive: PERRL Cardiac: Positive: Reg Rate and Rhythm - Labs and Meds CBC 02/15/17 Range/Units 04:47 WBC 7.3 (4.5-11.0) K/mm3 RBC 3.94 (3.65-5.03) M/mm3 Hgb 9.6 L (11.8-15.2) gm/dl Hct 31.2 L (35.5-45.6) % Plt Count 140 (140-440) K/mm3 Comprehensive Metabolic Panel 02/15/17 Range/Units 04:47 Sodium 146 H (137-145) mmol/L Potassium 4.7 (3.6-5.0) mmol/L Chloride 110.9 H (98-107) mmol/L Carbon Dioxide 20 L (22-30) mmol/L BUN 52 H (9-20) mg/dL Creatinine 0.5 L D (0.8-1.5) mg/dL Glucose 114 H (75-100) mg/dL Calcium 7.9 L (8.4-10.2) mg/dL
[2017-02-15] MEDS ORDERED: SODIUM BICARBONATE FEEDTUBE PRN (12:23)
[2017-02-15] MEDS ORDERED: PANCREAZE DR 10,500 UNIT FEEDTUBE PRN (12:23)
[2017-02-15] MEDS ORDERED: SIMPLE SYRUP FEEDTUBE PRN ×2 (12:23)
[2017-02-15] MEDS ORDERED: NACL 0.9% 1000 ML 0 ML ONE (13:56)
--- NOTE | 2017-02-15 16:31 | Progress Note ---
Assessment and Plan Assessment and plan: Patient is a 72-year-old [place] man from [place] with a history afib not on a/c due to GI bleed, AOCD, CAD s/p 3 vessel CABG, CHF/ICMP EF 25-30%-->improved to 45-50 % on 01/2017 ECHO (per Cardiology), diabetes mellitus, stroke, GERD and DLP who presents with SOB. pO2 was on 60 on 3 liters of O2. CTA of the chest showed no evidence of PE. Ascending aortic diameter 3.5 cm. 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 Also noted atherosclerotic ulcer at the descending thoracic aorta, diffuse patchy airspace opacities bilaterally suggested pneumonitis and less likely pulmonary edema==>I notified Cardiology and Dr. Hernandez called me back after he reviewed the CTA chest and recommends Vascular to evaluate. Dr. Moreno is biomedical electronics technician, so I called his office and spoke with Anika. -Acute hypoxic respiratory failure: Consult pulmonary, await on CCM to evaluate. -Acute bilateral aspiration pneumonitis: IV antibiotics -Suspected severe malnutrition, albumin 2.7 with dietary support. -Sepsis Pneumonia, poa: blood ctx pending, continue abx, limit ivf due to chf history I saw the patient in ICU, then he was transferred to telemetry because he was a telemetry overflow. Await call back from Dr. Moreno. History Interval history: Patient seen and examined. Follow up on shortness of breath. Overnight uneventful. No cp, n/v or severe headaches. Imaging, old records, testing, labs , nursing notes reviewed. Hospitalist Physical - Physical exam Narrative exam: GEN: Ill-appearing, NAD, AWAKE, ALERT, doesn't speak Bahraini, no family is at bedside CVS: RRR, NORMAL S1S2 LUNGS/CHEST: CTA B, NORMAL CHEST EXPANSION B, GOOD AIR ENTRY B ABD: SOFT, NTND, GBS, NO REBOUND OR GUARDING EXT/SKIN: NO SIGNIFICANT EDEMA OR RASH MSK: FROM X 4 EXTREMITIES NEURO: CN 2-12 GROSSLY INTACT, NO FOCAL DEFICITS PSY: CALM - Constitutional Vitals: Temp Pulse Resp BP Pulse Ox 97.5 F L 88 23 122/67 99 02/15/17 08:00 02/15/17 12:00 02/15/17 12:00 02/15/17 12:00 02/15/17 12:00 General appearance: Absent: mild distress Results - Labs CBC & Chem 7: 02/15/17 04:47 02/15/17 04:47 Labs: Laboratory Last Values WBC 7.3 K/mm3 (4.5-11.0) 02/15/17 04:47 RBC 3.94 M/mm3 (3.65-5.03) 02/15/17 04:47 Hgb 9.6 gm/dl (11.8-15.2) L 02/15/17 04:47 Hct 31.2 % (35.5-45.6) L 02/15/17 04:47 MCV 79 fl (84-94) L 02/15/17 04:47 MCH 24 pg (28-32) L 02/15/17 04:47 MCHC 31 % (32-34) L 02/15/17 04:47 RDW 19.9 % (13.2-15.2) H 02/15/17 04:47 Plt Count 140 K/mm3 (140-440) 02/15/17 04:47 Add Manual Diff Complete 02/15/17 04:47 Total Counted 100 02/15/17 04:47 Seg Neutrophils % Cellar Pumper 02/15/17 04:47 Seg Neuts % (Manual) 22.0 % (40.0-70.0) L 02/15/17 04:47 Band Neutrophils % 71.0 % 02/15/17 04:47 Lymphocytes % (Manual) 4.0 % (13.4-35.0) L 02/15/17 04:47 Reactive Lymphs % (Man) 0 % 02/15/17 04:47 Monocytes % (Manual) 3.0 % (0.0-7.3) 02/15/17 04:47 Eosinophils % (Manual) 0 % (0.0-4.3) 02/15/17 04:47 Basophils % (Manual) 0 % (0.0-1.8) 02/15/17 04:47 Metamyelocytes % 0 % 02/15/17 04:47 Myelocytes % 0 % 02/15/17 04:47 Promyelocytes % 0 % 02/15/17 04:47 Blast Cells % 0 % 02/15/17 04:47 Nucleated RBC % Not Reportable 02/15/17 04:47 Seg Neutrophils # Man 1.6 K/mm3 (1.8-7.7) L 02/15/17 04:47 Band Neutrophils # 5.2 K/mm3 02/15/17 04:47 Lymphocytes # (Manual) 0.3 K/mm3 (1.2-5.4) L 02/15/17 04:47 Abs React Lymphs (Man) 0.0 K/mm3 02/15/17 04:47 Monocytes # (Manual) 0.2 K/mm3 (0.0-0.8) 02/15/17 04:47 Eosinophils # (Manual) 0.0 K/mm3 (0.0-0.4) 02/15/17 04:47 Basophils # (Manual) 0.0 K/mm3 (0.0-0.1) 02/15/17 04:47 Metamyelocytes # 0.0 K/mm3 02/15/17 04:47 Myelocytes # 0.0 K/mm3 02/15/17 04:47 Promyelocytes # 0.0 K/mm3 02/15/17 04:47 Blast Cells # 0.0 K/mm3 02/15/17 04:47 WBC Morphology Not Reportable 02/15/17 04:47 Hypersegmented Neuts Not Reportable 02/15/17 04:47 Hyposegmented Neuts Not Reportable 02/15/17 04:47 Hypogranular Neuts Not Reportable 02/15/17 04:47 Smudge Cells Not Reportable 02/15/17 04:47 Toxic Granulation Not Reportable 02/15/17 04:47 Toxic Vacuolation Not Reportable 02/15/17 04:47 Dohle Bodies Not Reportable 02/15/17 04:47 Pelger-Huet Anomaly Not Reportable 02/15/17 04:47 Celeste Rods Not Reportable 02/15/17 04:47 Platelet Estimate Appears normal 02/15/17 04:47 Clumped Platelets Not Reportable 02/15/17 04:47 Plt Clumps, EDTA Not Reportable 02/15/17 04:47 Large Platelets Not Reportable 02/15/17 04:47 Giant Platelets Not Reportable 02/15/17 04:47 Platelet Satelliting Not Reportable 02/15/17 04:47 Plt Morphology Comment Not Reportable 02/15/17 04:47 RBC Morphology Not Reportable 02/15/17 04:47 Dimorphic RBCs Not Reportable 02/15/17 04:47 Polychromasia Not Reportable 02/15/17 04:47 Hypochromasia Few 02/15/17 04:47 Poikilocytosis Not Reportable 02/15/17 04:47 Anisocytosis 1+ 02/15/17 04:47 Microcytosis Not Reportable 02/15/17 04:47 Macrocytosis Not Reportable 02/15/17 04:47 Spherocytes Not Reportable 02/15/17 04:47 Pappenheimer Bodies Not Reportable 02/15/17 04:47 Sickle Cells Not Reportable 02/15/17 04:47 Target Cells Not Reportable 02/15/17 04:47 Tear Drop Cells Not Reportable 02/15/17 04:47 Ovalocytes Not Reportable 02/15/17 04:47 Helmet Cells Not Reportable 02/15/17 04:47 Schaeffer-Milo Bodies Not Reportable 02/15/17 04:47 [place] Rings Not Reportable 02/15/17 04:47 Jean-Pierre Cells Not Reportable 02/15/17 04:47 Bite Cells Not Reportable 02/15/17 04:47 Crenated Cell Not Reportable 02/15/17 04:47 Elliptocytes Not Reportable 02/15/17 04:47 Acanthocytes (Spur) Not Reportable 02/15/17 04:47 Rouleaux Not Reportable 02/15/17 04:47 Hemoglobin C Crystals Not Reportable 02/15/17 04:47 Schistocytes Not Reportable 02/15/17 04:47 Malaria parasites Not Reportable 02/15/17 04:47 Brenton Bodies Not Reportable 02/15/17 04:47 Hem Pathologist Commnt No 02/15/17 04:47 PT 15.1 Sec. (12.2-14.9) H 02/14/17 13:27 INR 1.20 (0.87-1.13) H 02/14/17 13:27 APTT 40.4 Sec. (24.2-36.6) H 02/14/17 13:27 POC ABG pH 7.413 (7.35-7.45) 02/14/17 14:29 POC ABG pCO2 33.6 (35-45) L 02/14/17 14:29 POC ABG pO2 60 (80-105) L 02/14/17 14:29 POC ABG HCO3 21.5 02/14/17 14:29 POC ABG Total CO2 22 02/14/17 14:29 POC ABG O2 Sat 91 02/14/17 14:29 POC ABG Base Excess -3 02/14/17 14:29 FiO2 36 % 02/14/17 14:29 Sodium 146 mmol/L (137-145) H 02/15/17 04:47 Potassium 4.7 mmol/L (3.6-5.0) 02/15/17 04:47 Chloride 110.9 mmol/L (98-107) H 02/15/17 04:47 Carbon Dioxide 20 mmol/L (22-30) L 02/15/17 04:47 Anion Gap 20 mmol/L 02/15/17 04:47 BUN 52 mg/dL (9-20) H 02/15/17 04:47 Creatinine 0.5 mg/dL (0.8-1.5) L D 02/15/17 04:47 Estimated GFR > 60 ml/min 02/15/17 04:47 BUN/Creatinine Ratio 104.00 % 02/15/17 04:47 Glucose 114 mg/dL (75-100) H 02/15/17 04:47 POC Glucose 120 (70-105) H 02/15/17 11:54 Lactic Acid 1.10 mmol/L (0.7-2.0) 02/14/17 17:55 Calcium 7.9 mg/dL (8.4-10.2) L 02/15/17 04:47 Magnesium 2.40 mg/dL (1.7-2.3) H 02/14/17 13:27 Total Bilirubin 0.80 mg/dL (0.1-1.2) 02/14/17 13:27 AST 20 units/L (5-40) 02/14/17 13:27 ALT 9 units/L (7-56) 02/14/17 13:27 Alkaline Phosphatase 61 units/L (35-129) 02/14/17 13:27 Total Creatine Kinase 27 units/L (55-170) L 02/14/17 13:27 Troponin T 0.051 ng/mL (0.00-0.029) H D 02/14/17 17:55 NT-Pro-B Natriuret Pep 8219 pg/mL (0-900) H 02/14/17 13:27 Total Protein 6.6 g/dL (6.3-8.2) 02/14/17 13:27 Albumin 2.7 g/dL (3.9-5) L 02/14/17 13:27 Albumin/Globulin Ratio 0.7 % 02/14/17 13:27 Triglycerides 107 mg/dL (2-149) 02/14/17 13:27 Cholesterol 56 mg/dL (50-199) 02/14/17 13:27 LDL Cholesterol Direct 14 mg/dL (50-130) L 02/14/17 13:27 HDL Cholesterol 21 mg/dL (40-59) L 02/14/17 13:27 Cholesterol/HDL Ratio 2.66 % 02/14/17 13:27 Lipase 52 units/L (13-60) 02/14/17 13:27
--- NOTE | 2017-02-15 18:56 | Consultation ---
History of Present Illness - Reason for Consult Consult date: 02/15/17 atherosclerosis of the thoracic aorta Requesting physician: LUDWIG LOPEZ - History of Present Illness 76-year-old male who is a poor historian, was admitted to the hospital for evaluation of chest pain. Had a CT scan of his chest which revealed atherosclerosis of the thoracic aorta with mural thrombus and within the ascending aorta. Past History Past Medical History: atrial fib (history of paroxysmal atrial fibrillation not on anticoagulation due to history of GI bleed), anemia, CAD, diabetes, GERD, stroke Past Surgical History: CABG, Other (PEG tube) Social history: other (not available at this time) Medications and Allergies Allergies Allergy/AdvReac Type Severity Reaction Status Date / Time No Known Allergies Allergy Verified 01/05/17 19:58 Home Medications Medication Instructions Recorded Confirmed Last Taken Type Metformin HCl [Metformin HCl ER] 500 mg PO DAILY #60 [id number] 12/04/16 Unknown Rx Losartan [Cozaar] 12.5 mg PO QDAY #30 tablet 12/10/16 02/14/17 Unknown Rx Arformoterol Nebu [Brovana Nebu] 15 mcg IH Q12HRT #60 ml 01/19/17 02/14/17 Unknown Rx Budesonide [Pulmicort Respules] 0.5 mg IH Q12HRT #60 nebu 01/19/17 02/14/17 Unknown Rx Digoxin [Lanoxin] 0.125 mg PO DAILY@1700 #30 tablet 01/19/17 02/14/17 Unknown Rx Metoprolol Xl [Metoprolol 12.5 mg PO QDAY #30 tablet 01/19/17 02/14/17 Unknown Rx SUCCINATE ER TAB] Omeprazole 40 mg PO DAILY #30 capsule. 01/19/17 02/14/17 Unknown Rx Potassium Chloride [K-Dur] 10 meq PO QDAY #30 tablet 01/19/17 02/14/17 Unknown Rx Aspirin [Adult Low Dose Aspirin EC] 81 mg PO DAILY 02/14/17 02/14/17 Unknown History Furosemide (10 mg/ml) [Lasix ORAL 2 ml FEEDTUBE DAILY 02/14/17 02/14/17 Unknown History SOLN] Isosorbide Dinitrate 30 mg PO DAILY 02/14/17 02/14/17 Unknown History Active Meds: Active Medications Al Hydrox/Mg Hydrox/Simethicone (Alum-Mag Hydrox-Simeth 933-121-08qg/5ml) 30 ml PO Q4H PRN PRN Reason: Indigestion Albuterol (Proventil) 2.5 mg IH Q4HRT PRN PRN Reason: Shortness Of Breath Albuterol/Ipratropium (Duoneb 0.5 Mg-3 Mg/3 Ml Soln) 1 ampul IH Q6HRT [facility] Last Admin: 02/15/17 14:15 Dose: 1 ampul Lipase/Protease/Amylase (Pancreaze Dr 10,500 Unit) 1 each FEEDTUBE PRN PRN PRN Reason: For Clogged Feeding Tube Arformoterol Tartrate (Brovana Nebu) 15 mcg IH Q12HRT [facility] Bisacodyl (Dulcolax) 10 mg [place] QDAY PRN PRN Reason: constipation unrelieved by MOM Budesonide (Pulmicort) 0.5 mg IH Q12H [facility] Dextrose (D50w (25gm)) 50 ml IV PRN PRN PRN Reason: Hypoglycemia Heparin Sodium (Porcine) (Heparin) 5,000 unit SUB-Q Q8HR [facility] Last Admin: 02/15/17 15:29 Dose: 5,000 unit Sodium Chloride (Nacl 0.9% 1000 Ml) 1,000 mls @ 100 mls/hr IV DIRECT [facility] Last Admin: 02/15/17 14:06 Dose: 100 mls/hr Piperacillin Sod/Tazobactam Sod (Zosyn/Ns 4.5gm/100ml) 4.5 gm in 100 mls @ 200 mls/hr IV Q8HR [facility] PRN Reason: Protocol Insulin Aspart (Novolog) 0 units SUB-Q ACHS [facility] PRN Reason: Protocol Last Admin: 02/15/17 11:26 Dose: Not Given Magnesium Hydroxide (Milk Of Magnesia) 30 ml PO Q4H PRN PRN Reason: Constipation Morphine Sulfate (Morphine) 1 mg IV Q4H PRN PRN Reason: Pain, Moderate (4-6) Simple Syrup (Simple Syrup) 15 ml FEEDTUBE PRN PRN PRN Reason: Hypoglycemia Simple Syrup (Simple Syrup) 30 ml FEEDTUBE PRN PRN PRN Reason: Hypoglycemia Sodium Bicarbonate (Sodium Bicarbonate) 325 mg FEEDTUBE PRN PRN PRN Reason: For Clogged Feeding Tube Exam - Constitutional Vitals: Temp Pulse Resp BP Pulse Ox 97.4 F L 92 H 22 115/75 99 02/15/17 16:26 02/15/17 16:26 02/15/17 16:26 02/15/17 16:26 02/15/17 16:26 General appearance: Present: no acute distress, cachectic - Neck Neck: Absent: masses or JVD - Cardiovascular Rhythm: irregularly irregular - Extremities Extremities: no ischemia Peripheral Pulses: within normal limits (bilateral radial pulses palpable) - Abdominal General gastrointestinal: Present: soft (feeding tube in place) Results - Labs CBC & Chem 7: 02/15/17 04:47 02/15/17 04:47 Labs: Abnormal lab results 02/14/17 02/15/17 02/15/17 Range/Units 23:38 04:47 04:47 Hgb 9.6 L (11.8-15.2) gm/dl Hct 31.2 L (35.5-45.6) % MCV 79 L (84-94) fl MCH 24 L (28-32) pg MCHC 31 L (32-34) % RDW 19.9 H (13.2-15.2) % Seg Neuts % (Manual) 22.0 L (40.0-70.0) % Lymphocytes % (Manual) 4.0 L (13.4-35.0) % Seg Neutrophils # Man 1.6 L (1.8-7.7) K/mm3 Lymphocytes # (Manual) 0.3 L (1.2-5.4) K/mm3 Sodium 146 H (137-145) mmol/L Chloride 110.9 H (98-107) mmol/L Carbon Dioxide 20 L (22-30) mmol/L BUN 52 H (9-20) mg/dL Creatinine 0.5 L D (0.8-1.5) mg/dL Glucose 114 H (75-100) mg/dL POC Glucose 139 H (70-105) Calcium 7.9 L (8.4-10.2) mg/dL 02/15/17 02/15/17 02/15/17 Range/Units 06:37 11:20 11:54 Hgb (11.8-15.2) gm/dl Hct (35.5-45.6) % MCV (84-94) fl MCH (28-32) pg MCHC (32-34) % RDW (13.2-15.2) % Seg Neuts % (Manual) (40.0-70.0) % Lymphocytes % (Manual) (13.4-35.0) % Seg Neutrophils # Man (1.8-7.7) K/mm3 Lymphocytes # (Manual) (1.2-5.4) K/mm3 Sodium (137-145) mmol/L Chloride (98-107) mmol/L Carbon Dioxide (22-30) mmol/L BUN (9-20) mg/dL Creatinine (0.8-1.5) mg/dL Glucose (75-100) mg/dL POC Glucose 136 H 108 H 120 H (70-105) Calcium (8.4-10.2) mg/dL Assessment and Plan 1. I reviewed the results of the CT scan, the patient has diffuse atherosclerotic disease, there is no evidence of intimal dissection or aneurysmal dilatation. No acute vascular surgery intervention is necessary. A risk factor modification with management of hyperlipidemia. - Patient Problems (1) Thoracic aortic atherosclerosis Current Visit: Yes Status: Acute
[2017-02-15] MEDS: ZOSYN/NS 4.5GM/100ML 4.5 GM/100 ML VIAL IV SCH ×2 (19:33→22:50)
[2017-02-16] MEDS: DUONEB 0.5 MG-3 MG/3 ML SOLN IH SCH ×4 (03:11→19:34)
[2017-02-16] MEDS: HEPARIN SUB-Q SCH ×3 (06:50→21:52)
[2017-02-16] MEDS: ZOSYN/NS 4.5GM/100ML 4.5 GM/100 ML VIAL IV SCH ×3 (06:50→21:51)
[2017-02-16] MEDS: PULMICORT IH SCH ×2 (07:29→19:34)
[2017-02-16] MEDS: BROVANA NEBU IH SCH ×2 (07:29→19:34)
[2017-02-16] MEDS: NOVOLOG SUB-Q SCH ×4 (07:30→21:56)
[2017-02-16 07:48] LABS: Hematocrit 33.2 % (35.5-45.6); Hemoglobin 10.2 gm/dl (11.8-15.2); Mean Corpuscular HGB Conc 31 % (32-34); Mean Corpuscular Volume 78 fl (84-94); Platelet Count 123 K/mm3 (140-440); Red Blood Count 4.28 M/mm3 (3.65-5.03); White Blood Count 11.1 K/mm3 (4.5-11.0)
[2017-02-16 08:01] LABS: BUN/Creatinine Ratio 76.66; Blood Urea Nitrogen 46 mg/dL (9-20); Calcium 8.2 mg/dL (8.4-10.2); Carbon Dioxide 21 mmol/L (22-30); Glucose 140 mg/dL (75-100)
[2017-02-16 08:02] LABS: Anion Gap 16 mmol/L; Chloride 117.8 mmol/L (98-107); Potassium 3.9 mmol/L (3.6-5.0); Sodium 151 mmol/L (137-145)
[2017-02-16 08:04] LABS: Mean Corpuscular Hemoglobin 24 pg (28-32)
--- NOTE | 2017-02-16 12:21 | Consultation ---
History of Present Illness Consult date: 02/16/17 Requesting physician: CAROLINA PATEL Reason for consult: pneumonia, other (Acute Hypoxemic Respiratory Failure) History of present illness: PULMONARY/CCM CONSULT NOTE (Full dictation # [id number]) Please see dictated notes for full details Past History Past Medical History: atrial fib (history of paroxysmal atrial fibrillation not on anticoagulation due to history of GI bleed), anemia, CAD, diabetes, GERD, stroke Past Surgical History: CABG, Other (PEG tube) Social history: other (not available at this time) Medications and Allergies Allergies Allergy/AdvReac Type Severity Reaction Status Date / Time No Known Allergies Allergy Verified 01/05/17 19:58 Home Medications Medication Instructions Recorded Confirmed Last Taken Type Metformin HCl [Metformin HCl ER] 500 mg PO DAILY #60 [id number] 12/04/16 Unknown Rx Losartan [Cozaar] 12.5 mg PO QDAY #30 tablet 12/10/16 02/14/17 Unknown Rx Arformoterol Nebu [Brovana Nebu] 15 mcg IH Q12HRT #60 ml 01/19/17 02/14/17 Unknown Rx Budesonide [Pulmicort Respules] 0.5 mg IH Q12HRT #60 nebu 01/19/17 02/14/17 Unknown Rx Digoxin [Lanoxin] 0.125 mg PO DAILY@1700 #30 tablet 01/19/17 02/14/17 Unknown Rx Metoprolol Xl [Metoprolol 12.5 mg PO QDAY #30 tablet 01/19/17 02/14/17 Unknown Rx SUCCINATE ER TAB] Omeprazole 40 mg PO DAILY #30 capsule. 01/19/17 02/14/17 Unknown Rx Potassium Chloride [K-Dur] 10 meq PO QDAY #30 tablet 01/19/17 02/14/17 Unknown Rx Aspirin [Adult Low Dose Aspirin EC] 81 mg PO DAILY 02/14/17 02/14/17 Unknown History Furosemide (10 mg/ml) [Lasix ORAL 2 ml FEEDTUBE DAILY 02/14/17 02/14/17 Unknown History SOLN] Isosorbide Dinitrate 30 mg PO DAILY 02/14/17 02/14/17 Unknown History Active Meds: Active Medications Al Hydrox/Mg Hydrox/Simethicone (Alum-Mag Hydrox-Simeth 950-363-34qi/5ml) 30 ml PO Q4H PRN PRN Reason: Indigestion Albuterol (Proventil) 2.5 mg IH Q4HRT PRN PRN Reason: Shortness Of Breath Albuterol/Ipratropium (Duoneb 0.5 Mg-3 Mg/3 Ml Soln) 1 ampul IH Q6HRT [facility] Last Admin: 02/16/17 07:29 Dose: Not Given Lipase/Protease/Amylase (Daxa Zapien 10,500 Unit) 1 each FEEDTUBE PRN PRN PRN Reason: For Clogged Feeding Tube Arformoterol Tartrate (Brovana Nebu) 15 mcg IH Q12HRT [facility] Last Admin: 02/16/17 07:29 Dose: 15 mcg Bisacodyl (Dulcolax) 10 mg [place] QDAY PRN PRN Reason: constipation unrelieved by MOM Budesonide (Pulmicort) 0.5 mg IH Q12H [facility] Last Admin: 02/16/17 07:29 Dose: 0.5 mg Dextrose (D50w (25gm)) 50 ml IV PRN PRN PRN Reason: Hypoglycemia Heparin Sodium (Porcine) (Heparin) 5,000 unit SUB-Q Q8HR [facility] Last Admin: 02/16/17 06:50 Dose: 5,000 unit Sodium Chloride (Nacl 0.9% 1000 Ml) 1,000 mls @ 100 mls/hr IV DIRECT [facility] Last Admin: 02/15/17 14:06 Dose: 100 mls/hr Piperacillin Sod/Tazobactam Sod (Zosyn/Ns 4.5gm/100ml) 4.5 gm in 100 mls @ 200 mls/hr IV Q8HR [facility] PRN Reason: Protocol Last Admin: 02/16/17 06:50 Dose: 200 mls/hr Insulin Aspart (Novolog) 0 units SUB-Q ACHS [facility] PRN Reason: Protocol Last Admin: 02/15/17 22:55 Dose: 2 units Magnesium Hydroxide (Milk Of Magnesia) 30 ml PO Q4H PRN PRN Reason: Constipation Morphine Sulfate (Morphine) 1 mg IV Q4H PRN PRN Reason: Pain, Moderate (4-6) Simple Syrup (Simple Syrup) 15 ml FEEDTUBE PRN PRN PRN Reason: Hypoglycemia Simple Syrup (Simple Syrup) 30 ml FEEDTUBE PRN PRN PRN Reason: Hypoglycemia Sodium Bicarbonate (Sodium Bicarbonate) 325 mg FEEDTUBE PRN PRN PRN Reason: For Clogged Feeding Tube Physical Examination Vital signs: Vital Signs Pulse Ox 93 02/14/17 12:45 Results - Laboratory Findings CBC and BMP: 02/16/17 06:44 02/16/17 06:44 ABG POC ABG pH 7.413 (7.35-7.45) 02/14/17 14:29 POC ABG pCO2 33.6 (35-45) L 02/14/17 14:29 POC ABG pO2 60 (80-105) L 02/14/17 14:29 POC ABG HCO3 21.5 02/14/17 14:29 POC ABG Total CO2 22 02/14/17 14:29 POC ABG O2 Sat 91 02/14/17 14:29 PT/INR, D-dimer PT 15.1 Sec. (12.2-14.9) H 02/14/17 13:27 INR 1.20 (0.87-1.13) H 02/14/17 13:27 Abnormal lab findings: Abnormal Labs 02/14/17 02/14/17 02/15/17 17:55 23:38 04:47 WBC Hgb 9.6 L Hct 31.2 L MCV 79 L MCH 24 L MCHC 31 L RDW 19.9 H Plt Count Seg Neuts % (Manual) 22.0 L Lymphocytes % (Manual) 4.0 L Seg Neutrophils # Man 1.6 L Lymphocytes # (Manual) 0.3 L Sodium Chloride Carbon Dioxide BUN Creatinine Glucose POC Glucose 139 H Calcium Troponin T 0.051 H D 02/15/17 02/15/17 02/15/17 04:47 06:37 11:20 WBC Hgb Hct MCV MCH MCHC RDW Plt Count Seg Neuts % (Manual) Lymphocytes % (Manual) Seg Neutrophils # Man Lymphocytes # (Manual) Sodium 146 H Chloride 110.9 H Carbon Dioxide 20 L BUN 52 H Creatinine 0.5 L D Glucose 114 H POC Glucose 136 H 108 H Calcium 7.9 L Troponin T 02/15/17 02/15/17 02/16/17 11:54 22:00 06:44 WBC 11.1 H Hgb 10.2 L Hct 33.2 L MCV 78 L MCH 24 L MCHC 31 L RDW 20.0 H Plt Count 123 L Seg Neuts % (Manual) Lymphocytes % (Manual) Seg Neutrophils # Man Lymphocytes # (Manual) Sodium Chloride Carbon Dioxide BUN Creatinine Glucose POC Glucose 120 H 151 H Calcium Troponin T 02/16/17 06:44 WBC Hgb Hct MCV MCH MCHC RDW Plt Count Seg Neuts % (Manual) Lymphocytes % (Manual) Seg Neutrophils # Man Lymphocytes # (Manual) Sodium 151 H Chloride 117.8 H Carbon Dioxide 21 L BUN 46 H Creatinine 0.6 L Glucose 140 H POC Glucose Calcium 8.2 L Troponin T
[2017-02-16] MEDS: MORPHINE IV PRN ×3 (12:31→21:52)
--- NOTE | 2017-02-16 16:37 | Progress Note ---
Assessment and Plan Pneumonia Acute respiratory failure no evidence of PE by V\Q scan Paroxysmal Afib currently in sinus rhythm not on anticoagulation due to recent GI bleed on digoxin and coreg as an outpatient for suppression Hx of Ischemic Cardiomyopathy EF improved EF 45-50% on echo 01/2017 He does NOT yet have an internal cardiac defibrillator. Hx of CAD s/p 3 way CABG [facility] 05/2016 reports 3 bypass grafts have remained patent, and he is on medical therapy for small vessel coronary disease. Ejection fraction 25-30%. 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 Subjective Date of service: 02/16/17 Interval history: Patient speaks little Singaporean. No distress noted. Objective Vital Signs Temp Pulse Pulse Pulse Resp Resp BP 02/16/17 16:30 20 02/16/17 14:36 110 H 20 02/16/17 14:26 109 H 20 02/16/17 13:01 16 02/16/17 12:31 20 02/16/17 08:57 20 02/16/17 07:40 92 H 20 02/16/17 07:30 97.6 F 97 H 12 129/76 02/16/17 07:29 86 20 02/16/17 02:45 89 16 02/16/17 02:35 91 H 18 02/16/17 00:00 97.8 F 92 H 20 121/70 02/15/17 22:00 91 H 02/15/17 20:01 94 H 20 02/15/17 20:00 97.4 F L 95 H 20 123/61 02/15/17 19:51 91 H 20 Pulse Ox 02/16/17 16:30 02/16/17 14:36 02/16/17 14:26 02/16/17 13:01 02/16/17 12:31 02/16/17 08:57 96 02/16/17 07:40 02/16/17 07:30 97 02/16/17 07:29 98 02/16/17 02:45 02/16/17 02:35 02/16/17 00:00 92 02/15/17 22:00 96 02/15/17 20:01 02/15/17 20:00 96 02/15/17 19:51 98 - Physical Examination General: No Apparent Distress Cardiac: Positive: Reg Rate and Rhythm - Labs and Meds CBC 02/16/17 Range/Units 06:44 WBC 11.1 H (4.5-11.0) K/mm3 RBC 4.28 (3.65-5.03) M/mm3 Hgb 10.2 L (11.8-15.2) gm/dl Hct 33.2 L (35.5-45.6) % Plt Count 123 L (140-440) K/mm3 Comprehensive Metabolic Panel 02/16/17 Range/Units 06:44 Sodium 151 H (137-145) mmol/L Potassium 3.9 (3.6-5.0) mmol/L Chloride 117.8 H (98-107) mmol/L Carbon Dioxide 21 L (22-30) mmol/L BUN 46 H (9-20) mg/dL Creatinine 0.6 L (0.8-1.5) mg/dL Glucose 140 H (75-100) mg/dL Calcium 8.2 L (8.4-10.2) mg/dL
--- NOTE | 2017-02-16 18:35 | Progress Note ---
Assessment and Plan Assessment and plan: Language Line used, initial used Mosotho which he doesnt speak Then I used Malay language line. He c/o sob and chest tightness Patient is a 72-year-old Malay man from [place] with a history afib not on a/c due to GI bleed, AOCD, CAD s/p 3 vessel CABG, CHF/ICMP EF 25-30%-->improved to 45-50% on 01/2017 ECHO (per Cardiology), diabetes mellitus, stroke, GERD and DLP who presents with SOB. pO2 was on 60 on 3 liters of O2. CTA of the chest showed no evidence of PE. Ascending aortic diameter 3.5 cm. 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 Also noted atherosclerotic ulcer at the descending thoracic aorta, diffuse patchy airspace opacities bilaterally suggested pneumonitis and less likely pulmonary edema==>I notified Cardiology and Dr. Hernandez called me back after he reviewed the CTA chest and recommends Vascular to evaluate. Dr. Moreno is inspector packer glass container, so I called his office and spoke with Anika. -Acute hypoxic respiratory failure: Consult pulmonary, support with O2, pulm is following. -Acute bilateral aspiration pneumonitis: IV antibiotics -Suspected severe malnutrition, albumin 2.7 with dietary support. -Sepsis Pneumonia, poa: blood ctx pending, continue abx, limit ivf due to chf history I saw the patient in ICU, then he was transferred to telemetry because he was a telemetry overflow. Await call back from Dr. Moreno==>d/w Dr. Lo twice. drop in plt stopped sq heparin. increasing sodium, d/c nss and repeat bmp in am History Interval history: Patient seen and examined. Follow up on shortness of breath. Overnight uneventful. No cp, n/v or severe headaches. Imaging, old records, testing, labs , nursing notes reviewed. Hospitalist Physical - Physical exam Narrative exam: GEN: Ill-appearing, NAD, AWAKE, ALERT, doesn't speak Nepali, no family is at bedside, still with VM CVS: RRR, NORMAL S1S2 LUNGS/CHEST: Coarse rhonchi bilateral NORMAL CHEST EXPANSION B, GOOD AIR ENTRY B ABD: SOFT, NTND, GBS, NO REBOUND OR GUARDING EXT/SKIN: NO SIGNIFICANT EDEMA OR RASH MSK: FROM X 4 EXTREMITIES NEURO: CN 2-12 GROSSLY INTACT, NO FOCAL DEFICITS PSY: CALM - Constitutional Vitals: Temp Pulse Resp BP Pulse Ox 98.7 F 110 H 20 144/83 96 02/16/17 17:56 02/16/17 14:36 02/16/17 16:30 02/16/17 17:56 02/16/17 08:57 General appearance: Present: no acute distress, cachectic Results - Labs CBC & Chem 7: 02/16/17 06:44 02/16/17 06:44 Labs: Laboratory Last Values WBC 11.1 K/mm3 (4.5-11.0) H 02/16/17 06:44 RBC 4.28 M/mm3 (3.65-5.03) 02/16/17 06:44 Hgb 10.2 gm/dl (11.8-15.2) L 02/16/17 06:44 Hct 33.2 % (35.5-45.6) L 02/16/17 06:44 MCV 78 fl (84-94) L 02/16/17 06:44 MCH 24 pg (28-32) L 02/16/17 06:44 MCHC 31 % (32-34) L 02/16/17 06:44 RDW 20.0 % (13.2-15.2) H 02/16/17 06:44 Plt Count 123 K/mm3 (140-440) L 02/16/17 06:44 Add Manual Diff Complete 02/15/17 04:47 Total Counted 100 02/15/17 04:47 Seg Neutrophils % Animal Care Attendant 02/15/17 04:47 Seg Neuts % (Manual) 22.0 % (40.0-70.0) L 02/15/17 04:47 Band Neutrophils % 71.0 % 02/15/17 04:47 Lymphocytes % (Manual) 4.0 % (13.4-35.0) L 02/15/17 04:47 Reactive Lymphs % (Man) 0 % 02/15/17 04:47 Monocytes % (Manual) 3.0 % (0.0-7.3) 02/15/17 04:47 Eosinophils % (Manual) 0 % (0.0-4.3) 02/15/17 04:47 Basophils % (Manual) 0 % (0.0-1.8) 02/15/17 04:47 Metamyelocytes % 0 % 02/15/17 04:47 Myelocytes % 0 % 02/15/17 04:47 Promyelocytes % 0 % 02/15/17 04:47 Blast Cells % 0 % 02/15/17 04:47 Nucleated RBC % Not Reportable 02/15/17 04:47 Seg Neutrophils # Man 1.6 K/mm3 (1.8-7.7) L 02/15/17 04:47 Band Neutrophils # 5.2 K/mm3 02/15/17 04:47 Lymphocytes # (Manual) 0.3 K/mm3 (1.2-5.4) L 02/15/17 04:47 Abs React Lymphs (Man) 0.0 K/mm3 02/15/17 04:47 Monocytes # (Manual) 0.2 K/mm3 (0.0-0.8) 02/15/17 04:47 Eosinophils # (Manual) 0.0 K/mm3 (0.0-0.4) 02/15/17 04:47 Basophils # (Manual) 0.0 K/mm3 (0.0-0.1) 02/15/17 04:47 Metamyelocytes # 0.0 K/mm3 02/15/17 04:47 Myelocytes # 0.0 K/mm3 02/15/17 04:47 Promyelocytes # 0.0 K/mm3 02/15/17 04:47 Blast Cells # 0.0 K/mm3 02/15/17 04:47 WBC Morphology Not Reportable 02/15/17 04:47 Hypersegmented Neuts Not Reportable 02/15/17 04:47 Hyposegmented Neuts Not Reportable 02/15/17 04:47 Hypogranular Neuts Not Reportable 02/15/17 04:47 Smudge Cells Not Reportable 02/15/17 04:47 Toxic Granulation Not Reportable 02/15/17 04:47 Toxic Vacuolation Not Reportable 02/15/17 04:47 Dohle Bodies Not Reportable 02/15/17 04:47 Pelger-Huet Anomaly Not Reportable 02/15/17 04:47 Celeste Rods Not Reportable 02/15/17 04:47 Platelet Estimate Appears normal 02/15/17 04:47 Clumped Platelets Not Reportable 02/15/17 04:47 Plt Clumps, EDTA Not Reportable 02/15/17 04:47 Large Platelets Not Reportable 02/15/17 04:47 Giant Platelets Not Reportable 02/15/17 04:47 Platelet Satelliting Not Reportable 02/15/17 04:47 Plt Morphology Comment Not Reportable 02/15/17 04:47 RBC Morphology Not Reportable 02/15/17 04:47 Dimorphic RBCs Not Reportable 02/15/17 04:47 Polychromasia Not Reportable 02/15/17 04:47 Hypochromasia Few 02/15/17 04:47 Poikilocytosis Not Reportable 02/15/17 04:47 Anisocytosis 1+ 02/15/17 04:47 Microcytosis Not Reportable 02/15/17 04:47 Macrocytosis Not Reportable 02/15/17 04:47 Spherocytes Not Reportable 02/15/17 04:47 Pappenheimer Bodies Not Reportable 02/15/17 04:47 Sickle Cells Not Reportable 02/15/17 04:47 Target Cells Not Reportable 02/15/17 04:47 Tear Drop Cells Not Reportable 02/15/17 04:47 Ovalocytes Not Reportable 02/15/17 04:47 Helmet Cells Not Reportable 02/15/17 04:47 [place] Bodies Not Reportable 02/15/17 04:47 Colon Rings Not Reportable 02/15/17 04:47 Jean-Pierre Cells Not Reportable 02/15/17 04:47 Bite Cells Not Reportable 02/15/17 04:47 Crenated Cell Not Reportable 02/15/17 04:47 Elliptocytes Not Reportable 02/15/17 04:47 Acanthocytes (Spur) Not Reportable 02/15/17 04:47 Rouleaux Not Reportable 02/15/17 04:47 Hemoglobin C Crystals Not Reportable 02/15/17 04:47 Schistocytes Not Reportable 02/15/17 04:47 Malaria parasites Not Reportable 02/15/17 04:47 Brenton Bodies Not Reportable 02/15/17 04:47 Hem Pathologist Commnt No 02/15/17 04:47 PT 15.1 Sec. (12.2-14.9) H 02/14/17 13:27 INR 1.20 (0.87-1.13) H 02/14/17 13:27 APTT 40.4 Sec. (24.2-36.6) H 02/14/17 13:27 POC ABG pH 7.413 (7.35-7.45) 02/14/17 14:29 POC ABG pCO2 33.6 (35-45) L 02/14/17 14:29 POC ABG pO2 60 (80-105) L 02/14/17 14:29 POC ABG HCO3 21.5 02/14/17 14:29 POC ABG Total CO2 22 02/14/17 14:29 POC ABG O2 Sat 91 02/14/17 14:29 POC ABG Base Excess -3 02/14/17 14:29 FiO2 36 % 02/14/17 14:29 Sodium 151 mmol/L (137-145) H 02/16/17 06:44 Potassium 3.9 mmol/L (3.6-5.0) 02/16/17 06:44 Chloride 117.8 mmol/L (98-107) H 02/16/17 06:44 Carbon Dioxide 21 mmol/L (22-30) L 02/16/17 06:44 Anion Gap 16 mmol/L 02/16/17 06:44 BUN 46 mg/dL (9-20) H 02/16/17 06:44 Creatinine 0.6 mg/dL (0.8-1.5) L 02/16/17 06:44 Estimated GFR > 60 ml/min 02/16/17 06:44 BUN/Creatinine Ratio 76.66 % 02/16/17 06:44 Glucose 140 mg/dL (75-100) H 02/16/17 06:44 POC Glucose 151 (70-105) H 02/15/17 22:00 Lactic Acid 1.10 mmol/L (0.7-2.0) 02/14/17 17:55 Calcium 8.2 mg/dL (8.4-10.2) L 02/16/17 06:44 Magnesium 2.40 mg/dL (1.7-2.3) H 02/14/17 13:27 Total Bilirubin 0.80 mg/dL (0.1-1.2) 02/14/17 13:27 AST 20 units/L (5-40) 02/14/17 13:27 ALT 9 units/L (7-56) 02/14/17 13:27 Alkaline Phosphatase 61 units/L (35-129) 02/14/17 13:27 Total Creatine Kinase 27 units/L (55-170) L 02/14/17 13:27 Troponin T 0.051 ng/mL (0.00-0.029) H D 02/14/17 17:55 NT-Pro-B Natriuret Pep 8219 pg/mL (0-900) H 02/14/17 13:27 Total Protein 6.6 g/dL (6.3-8.2) 02/14/17 13:27 Albumin 2.7 g/dL (3.9-5) L 02/14/17 13:27 Albumin/Globulin Ratio 0.7 % 02/14/17 13:27 Triglycerides 107 mg/dL (2-149) 02/14/17 13:27 Cholesterol 56 mg/dL (50-199) 02/14/17 13:27 LDL Cholesterol Direct 14 mg/dL (50-130) L 02/14/17 13:27 HDL Cholesterol 21 mg/dL (40-59) L 02/14/17 13:27 Cholesterol/HDL Ratio 2.66 % 02/14/17 13:27 Lipase 52 units/L (13-60) 02/14/17 13:27
[2017-02-17] MEDS: MORPHINE IV PRN (01:59)
[2017-02-17] MEDS: DUONEB 0.5 MG-3 MG/3 ML SOLN IH SCH ×4 (02:21→20:45)
--- NOTE | 2017-02-17 04:45 | Consultation ---
CONSULTING PHYSICIAN: Dr. Homer Moreno. REASON FOR CONSULTATION: Need for ICU admission, acute respiratory failure. CHIEF COMPLAINT AND HISTORY OF PRESENT ILLNESS: This is a 75-year-old Laotian male known to me, recent admission with respiratory distress, was believed mostly to be aspiration pneumonia related, went to a long-term, was brought in from the long-term the day of presentation due to shortness of breath, increasing lethargy and altered mental status. In the emergency room, he was described as being moderately short of breath. He had denied any chest pains. He was coughing a lot, but had poor respiratory effort. He also has a history of congestive heart failure. Chest x-ray showed bilateral patchy infiltrates. It was felt like he may have more to his cardiac symptoms. He was also hypotensive with prerenal azotemia. As a result of the constellation of his symptom complex and his mental status, a decision was made to admit him to the Intensive Care Unit. I did see him in the intensive care unit yesterday. He was looking like he could do without Intensive Care Unit care. He was focalizing well. He had a strong cough, blood pressure had normalized and he was transferred to the medical floor. He kept asking for water, but this is his usual presentation and he always wants something to drink because he is n.p.o. and being fed by PEG. I do not have any history of vomiting or overt aspiration, although I certainly cannot rule that out. This is as much of the history of presentation that I have. PAST MEDICAL HISTORY: He has a history again of atrial fibrillation, history of GI bleed last admission, history of anemia, history of coronary artery disease, diabetes, gastroesophageal reflux disease and he has had a stroke in the past I believe with residual left hemiparesis. PAST SURGICAL HISTORY: He has had coronary artery bypass grafting and a PEG tube placement. MEDICATIONS: He was on at the time I stopped by to see him, according to the medication administration record included the following: P.r.n. milk of magnesia, p.r.n. albuterol q. 4 hours 2.5 mg for shortness of breath, DuoNeb treatments was scheduled q. 6 hours, Brovana 15 mcg inhaled q. 12 hours, p.r.n. Dulcolax, Pulmicort 0.5 mg inhaled q. 12 hours, digoxin 0.125 mg p.o. daily and insulin via sliding scale, metoprolol 25 mg p.o. daily, morphine 1 mg IV q. 4 hours p.r.n. moderate pain, Zosyn 4.5 grams IV q. 8 hours. ALLERGIES: No known drug allergies. DIET: Well-built gentleman, no significant weight changes since I have last seen him. FAMILY AND SOCIAL HISTORY: Lives in the long-term. No current alcohol, tobacco, or illicit drug use or abuse. Remote history is unknown. REVIEW OF SYSTEMS: Unobtainable secondary to the patient's medical and mental condition apart from saying he wants water, but since he has been here, no gross hematochezia or melena, no gross hematuria, no hematemesis, no hemoptysis, no seizures. PHYSICAL EXAMINATION: VITAL SIGNS: At initial presentation, he had low-grade temperature of 99.1 Fahrenheit rectally with a pulse of 85, respiratory rate was high as 44 in the ER, blood pressure as low as 64/32 and oxygen sats 86%, inspired oxygen concentration was not recorded. HEAD, EYES, EARS, NOSE AND THROAT: Pupils are equal, round, about 3 mm, reactive to light. Extraocular muscle movements appeared intact. Difficult to evaluate his oropharynx. I could not get him to open his mouth. Grossly, no palpable lymph nodes in the supraclavicular or submandibular lymph node chains and no gross jugular venous distention. LUNGS: He had bilateral basilar predominant rales, no wheezing. HEART: Heart sounds 1 and 2 are heard. They were regular in rate and rhythm at the time of my evaluation. ABDOMEN: Soft, flat, bowel sounds are positive, did not appear tender. EXTREMITIES: Without overt digital clubbing, cyanosis, or pedal edema. NEUROLOGIC: He had mild left hemiparesis, but was moving all extremities. LABORATORY DATA: From my review are as follows: Admission white cell count was 13,000 with a hemoglobin of 9.1, hematocrit of 29.0 and platelet counts of 160. No band forms. INR 1.20. Arterial blood gas showed a pH of 7.41, pCO2 of 34, pO2 of 60 that was on 4 liters nasal cannula. Serum sodium was 140, potassium 5.4, chloride 101, bicarbonate 26, BUN 80, creatinine 1.1, glucose 93. Lactic acid within normal limits. Troponin was up at 0.086. BNP was up also at 8219. Liver function tests otherwise essentially within normal limits. Blood cultures have been drawn, there was no growth to date. Radiographic studies have been reviewed. I also reviewed the radiologist's interpretation and I was able to compare the chest x-ray with one and indeed there were patchy bilateral pulmonary infiltrates, could be congestive heart failure, could be aspiration pneumonia, certainly increased the last admission. A CTA better tells the story. There was no pulmonary emboli, but diffuse patchy airspace opacities, more consistent with pneumonia. ASSESSMENT AND PLAN: We have an elderly gentleman with likely aspiration pneumonia in from the long-term setting that would benefit from double gram-negative coverage for healthcare-associated pneumonia. If he is able to cough up some phlegm, perhaps we might be able to send it for culture and sensitivity. He is looking much better. White count is already beginning to come down since he came in. Clinically, blood pressure is holding. I do agree with volume resuscitation in the short term for prerenal azotemia, gentle hydration though. We will continue long and short-acting bronchodilators. Oxygen will be titrated to keep sats greater than or equal to about 94%. Bilevel positive airway pressure ventilation therapy will be on a p.r.n. basis. Aspiration precautions will be maintained. Appropriately, I should say, I will be putting him on GI and DVT prophylaxis. Flu and pneumonia vaccination will be per protocol. Thank you very much for the consult, Dr. Moreno. We will follow along. We will make further recommendations as picture progresses/becomes clearer. JOB# [id number] ILANA/ANTOINETTE
[2017-02-17] MEDS: ZOSYN/NS 4.5GM/100ML 4.5 GM/100 ML VIAL IV SCH ×3 (05:36→21:46)
[2017-02-17] MEDS: NOVOLOG SUB-Q SCH ×4 (07:52→21:48)
[2017-02-17] MEDS: BROVANA NEBU IH SCH ×2 (08:02→20:44)
[2017-02-17] MEDS: PULMICORT IH SCH ×2 (08:02→20:45)
[2017-02-17 10:39] LABS: Anion Gap 16 mmol/L; BUN/Creatinine Ratio 63.33; Blood Urea Nitrogen 38 mg/dL (9-20); Calcium 8.6 mg/dL (8.4-10.2); Carbon Dioxide 21 mmol/L (22-30); Chloride 118.6 mmol/L (98-107); Glucose 149 mg/dL (75-100); Potassium 3.8 mmol/L (3.6-5.0); Sodium 152 mmol/L (137-145)
[2017-02-17 10:41] LABS: Hematocrit 31.7 % (35.5-45.6); Hemoglobin 9.8 gm/dl (11.8-15.2); Mean Corpuscular HGB Conc 31 % (32-34); Mean Corpuscular Volume 77 fl (84-94); Platelet Count 135 K/mm3 (140-440); Red Blood Count 4.12 M/mm3 (3.65-5.03); White Blood Count 11.4 K/mm3 (4.5-11.0)
[2017-02-17 10:45] LABS: Mean Corpuscular Hemoglobin 24 pg (28-32)
[2017-02-17] MEDS ORDERED: SODIUM BICARBONATE FEEDTUBE PRN (12:35)
[2017-02-17] MEDS ORDERED: PANCREAZE DR 10,500 UNIT FEEDTUBE PRN (12:35)
[2017-02-17] MEDS ORDERED: SIMPLE SYRUP FEEDTUBE PRN ×2 (12:35)
[2017-02-17] MEDS: PEPCID PO SCH (13:20)
[2017-02-17] MEDS: TOPROL XL PO SCH (13:21)
[2017-02-17] MEDS: HEPARIN SUB-Q SCH ×2 (13:21→21:47)
--- NOTE | 2017-02-17 16:30 | Progress Note ---
Assessment and Plan Assessment and plan: Patient is a 72-year-old [place] man from [place] with a history afib not on a/c due to GI bleed, AOCD, CAD s/p 3 vessel CABG, CHF/ICMP EF 25-30%-->improved to 45-50% on 01/2017 ECHO (per Cardiology), diabetes mellitus, stroke, GERD and DLP who presents with SOB. pO2 was on 60 on 3 liters of O2. CTA of the chest showed no evidence of PE. Ascending aortic diameter 3.5 cm. 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 Also noted atherosclerotic ulcer at the descending thoracic aorta, diffuse patchy airspace opacities bilaterally suggested pneumonitis and less likely pulmonary edema==> -Acute hypoxic respiratory failure: Pulm input noted, concerning for aspiration pneumonia. continue abx, speech for aspiration stuides, support with O2, pulm is following. -Acute bilateral aspiration pneumonitis: IV antibiotics -Atypical chest pain- likely secondary to pneumonitis. cardiology input noted- Continue metoprolol xl and digoxin -Hypernatremia- Increase free water flushes to 150cc/6hrs -Thrombocytopenia-STABLE. monitor closely -Suspected severe malnutrition, albumin 2.7 with dietary support. POSSIBLE MURAL thrumbus in descending thoracic aorta- Consulted Vascular- call placed-NO INTERVENTION. -Sepsis Pneumonia, poa: blood ctx pending, continue abx, limit ivf due to chf history-MICRO REVIEWED AND NO GROWTH -Paroxysmal Afib- currently in sinus rhythm-not on anticoagulation due to recent GI bleed -Hx of Ischemic Cardiomyopathy-EF improved EF 45-50% on echo 01/2017 -Hx of CAD s/p 3 way CABG-[facility] 05/2016 reports 3 bypass grafts have remained patent, and he is on medical therapy for small vessel coronary disease. Ejection fraction 25-30%. Diabetes mellitus-SLIDING SCALE COVERAGE, Nonspecific elevated troponin Hyperkalemia Mural thrombus and atherosclerotic ulcer in the descending thoracic aorta on CTA no surgical intervention per vascular DVT/GI prophy Disposition- In a day or two once, sodium and pulmonary status improved. Language Line used, [place] language line. History Interval history: Patient seen and examined today, in no respiratory distress. resting comfortable. denies any pain with interpretation. Hospitalist Physical - Physical exam Narrative exam: VITAL SIGNS: Reviewed. GENERAL: The patient appeared well nourished and normally developed. Vital signs as documented. HEAD: No signs of head trauma. EYES: Pupils are equal. Extraocular motions intact. EARS: Hearing grossly intact. MOUTH: Oropharynx is normal. NECK: No adenopathy, no JVD. CHEST: Chest with clear breath sounds bilaterally. No wheezes, rales, or rhonchi. CARDIAC: Regular rate and rhythm. S1 and S2, without murmurs, gallops, or rubs. VASCULAR: No Edema. Peripheral pulses normal and equal in all extremities. ABDOMEN: Soft, without detectable tenderness. No sign of distention. No rebound or guarding, and no masses palpated. Bowel Sounds normal. MUSCULOSKELETAL: Good range of motion of all major joints. Extremities without clubbing, cyanosis or edema. NEUROLOGIC EXAM: Alert and oriented x 3. No focal sensory or strength deficits. Speech normal. Follows commands. PSYCHIATRIC: Mood normal. SKIN: No rash or lesions. - Constitutional Vitals: Temp Pulse Resp BP Pulse Ox 97.7 F 98 H 20 152/93 92 02/17/17 12:00 02/17/17 13:21 02/17/17 13:46 02/17/17 13:21 02/17/17 13:46 General appearance: Present: no acute distress, cachectic Results - Labs CBC & Chem 7: 02/17/17 09:03 02/17/17 09:03 Labs: Laboratory Last Values WBC 11.4 K/mm3 (4.5-11.0) H 02/17/17 09:03 RBC 4.12 M/mm3 (3.65-5.03) 02/17/17 09:03 Hgb 9.8 gm/dl (11.8-15.2) L 02/17/17 09:03 Hct 31.7 % (35.5-45.6) L 02/17/17 09:03 MCV 77 fl (84-94) L 02/17/17 09:03 MCH 24 pg (28-32) L 02/17/17 09:03 MCHC 31 % (32-34) L 02/17/17 09:03 RDW 20.0 % (13.2-15.2) H 02/17/17 09:03 Plt Count 135 K/mm3 (140-440) L 02/17/17 09:03 Add Manual Diff Complete 02/15/17 04:47 Total Counted 100 02/15/17 04:47 Seg Neutrophils % Senior Trainer 02/15/17 04:47 Seg Neuts % (Manual) 22.0 % (40.0-70.0) L 02/15/17 04:47 Band Neutrophils % 71.0 % 02/15/17 04:47 Lymphocytes % (Manual) 4.0 % (13.4-35.0) L 02/15/17 04:47 Reactive Lymphs % (Man) 0 % 02/15/17 04:47 Monocytes % (Manual) 3.0 % (0.0-7.3) 02/15/17 04:47 Eosinophils % (Manual) 0 % (0.0-4.3) 02/15/17 04:47 Basophils % (Manual) 0 % (0.0-1.8) 02/15/17 04:47 Metamyelocytes % 0 % 02/15/17 04:47 Myelocytes % 0 % 02/15/17 04:47 Promyelocytes % 0 % 02/15/17 04:47 Blast Cells % 0 % 02/15/17 04:47 Nucleated RBC % Not Reportable 02/15/17 04:47 Seg Neutrophils # Man 1.6 K/mm3 (1.8-7.7) L 02/15/17 04:47 Band Neutrophils # 5.2 K/mm3 02/15/17 04:47 Lymphocytes # (Manual) 0.3 K/mm3 (1.2-5.4) L 02/15/17 04:47 Abs React Lymphs (Man) 0.0 K/mm3 02/15/17 04:47 Monocytes # (Manual) 0.2 K/mm3 (0.0-0.8) 02/15/17 04:47 Eosinophils # (Manual) 0.0 K/mm3 (0.0-0.4) 02/15/17 04:47 Basophils # (Manual) 0.0 K/mm3 (0.0-0.1) 02/15/17 04:47 Metamyelocytes # 0.0 K/mm3 02/15/17 04:47 Myelocytes # 0.0 K/mm3 02/15/17 04:47 Promyelocytes # 0.0 K/mm3 02/15/17 04:47 Blast Cells # 0.0 K/mm3 02/15/17 04:47 WBC Morphology Not Reportable 02/15/17 04:47 Hypersegmented Neuts Not Reportable 02/15/17 04:47 Hyposegmented Neuts Not Reportable 02/15/17 04:47 Hypogranular Neuts Not Reportable 02/15/17 04:47 Smudge Cells Not Reportable 02/15/17 04:47 Toxic Granulation Not Reportable 02/15/17 04:47 Toxic Vacuolation Not Reportable 02/15/17 04:47 Dohle Bodies Not Reportable 02/15/17 04:47 Pelger-Huet Anomaly Not Reportable 02/15/17 04:47 Celeste Rods Not Reportable 02/15/17 04:47 Platelet Estimate Appears normal 02/15/17 04:47 Clumped Platelets Not Reportable 02/15/17 04:47 Plt Clumps, EDTA Not Reportable 02/15/17 04:47 Large Platelets Not Reportable 02/15/17 04:47 Giant Platelets Not Reportable 02/15/17 04:47 Platelet Satelliting Not Reportable 02/15/17 04:47 Plt Morphology Comment Not Reportable 02/15/17 04:47 RBC Morphology Not Reportable 02/15/17 04:47 Dimorphic RBCs Not Reportable 02/15/17 04:47 Polychromasia Not Reportable 02/15/17 04:47 Hypochromasia Few 02/15/17 04:47 Poikilocytosis Not Reportable 02/15/17 04:47 Anisocytosis 1+ 02/15/17 04:47 Microcytosis Not Reportable 02/15/17 04:47 Macrocytosis Not Reportable 02/15/17 04:47 Spherocytes Not Reportable 02/15/17 04:47 Pappenheimer Bodies Not Reportable 02/15/17 04:47 Sickle Cells Not Reportable 02/15/17 04:47 Target Cells Not Reportable 02/15/17 04:47 Tear Drop Cells Not Reportable 02/15/17 04:47 Ovalocytes Not Reportable 02/15/17 04:47 Helmet Cells Not Reportable 02/15/17 04:47 Schaeffer-Finderne Bodies Not Reportable 02/15/17 04:47 [place] Rings Not Reportable 02/15/17 04:47 Jean-[place] Cells Not Reportable 02/15/17 04:47 Bite Cells Not Reportable 02/15/17 04:47 Crenated Cell Not Reportable 02/15/17 04:47 Elliptocytes Not Reportable 02/15/17 04:47 Acanthocytes (Spur) Not Reportable 02/15/17 04:47 Rouleaux Not Reportable 02/15/17 04:47 Hemoglobin C Crystals Not Reportable 02/15/17 04:47 Schistocytes Not Reportable 02/15/17 04:47 Malaria parasites Not Reportable 02/15/17 04:47 Brenton Bodies Not Reportable 02/15/17 04:47 Hem Pathologist Commnt No 02/15/17 04:47 PT 15.1 Sec. (12.2-14.9) H 02/14/17 13:27 INR 1.20 (0.87-1.13) H 02/14/17 13:27 APTT 40.4 Sec. (24.2-36.6) H 02/14/17 13:27 POC ABG pH 7.413 (7.35-7.45) 02/14/17 14:29 POC ABG pCO2 33.6 (35-45) L 02/14/17 14:29 POC ABG pO2 60 (80-105) L 02/14/17 14:29 POC ABG HCO3 21.5 02/14/17 14:29 POC ABG Total CO2 22 02/14/17 14:29 POC ABG O2 Sat 91 02/14/17 14:29 POC ABG Base Excess -3 02/14/17 14:29 FiO2 36 % 02/14/17 14:29 Sodium 152 mmol/L (137-145) H 02/17/17 09:03 Potassium 3.8 mmol/L (3.6-5.0) 02/17/17 09:03 Chloride 118.6 mmol/L (98-107) H 02/17/17 09:03 Carbon Dioxide 21 mmol/L (22-30) L 02/17/17 09:03 Anion Gap 16 mmol/L 02/17/17 09:03 BUN 38 mg/dL (9-20) H 02/17/17 09:03 Creatinine 0.6 mg/dL (0.8-1.5) L 02/17/17 09:03 Estimated GFR > 60 ml/min 02/17/17 09:03 BUN/Creatinine Ratio 63.33 % 02/17/17 09:03 Glucose 149 mg/dL (75-100) H 02/17/17 09:03 POC Glucose 172 (70-105) H 02/16/17 21:27 Lactic Acid 1.10 mmol/L (0.7-2.0) 02/14/17 17:55 Calcium 8.6 mg/dL (8.4-10.2) 02/17/17 09:03 Magnesium 2.40 mg/dL (1.7-2.3) H 02/14/17 13:27 Total Bilirubin 0.80 mg/dL (0.1-1.2) 02/14/17 13:27 AST 20 units/L (5-40) 02/14/17 13:27 ALT 9 units/L (7-56) 02/14/17 13:27 Alkaline Phosphatase 61 units/L (35-129) 02/14/17 13:27 Total Creatine Kinase 27 units/L (55-170) L 02/14/17 13:27 Troponin T 0.051 ng/mL (0.00-0.029) H D 02/14/17 17:55 NT-Pro-B Natriuret Pep 8219 pg/mL (0-900) H 02/14/17 13:27 Total Protein 6.6 g/dL (6.3-8.2) 02/14/17 13:27 Albumin 2.7 g/dL (3.9-5) L 02/14/17 13:27 Albumin/Globulin Ratio 0.7 % 02/14/17 13:27 Triglycerides 107 mg/dL (2-149) 02/14/17 13:27 Cholesterol 56 mg/dL (50-199) 02/14/17 13:27 LDL Cholesterol Direct 14 mg/dL (50-130) L 02/14/17 13:27 HDL Cholesterol 21 mg/dL (40-59) L 02/14/17 13:27 Cholesterol/HDL Ratio 2.66 % 02/14/17 13:27 Lipase 52 units/L (13-60) 02/14/17 13:27 Digoxin 0.5 ng/mL (0.9-2.0) L 02/16/17 19:41 - Imaging and Cardiology Chest x-ray: image reviewed (vascular congestion)
--- NOTE | 2017-02-17 18:50 | Progress Note ---
Assessment and Plan Patient weak, Resting on nasal canula 2 litres.O2 saturation 98%. - Patient Problems (1) Aspiration pneumonia Current Visit: No Status: Acute Qualifiers: Aspiration pneumonia type: A Laterality: L Lung location: L Plan to address problem: Patient is on Zosyn (2) Acute respiratory failure with hypoxia Current Visit: Yes Status: Acute Plan to address problem: O2 supplementation 2 litres via nasal canula. Brovanna/Budesonide aerosol treatments q 12 hours. Continue S/C Heparin. Continue Famotadine. (3) Acute exacerbation of congestive heart failure Current Visit: Yes Status: Acute Qualifiers: Congestive heart failure type: combined Qualified Code(s): I50.43 - Acute on chronic combined systolic (congestive) and diastolic (congestive) heart failure Plan to address problem: Management as per primary and cardiology. (4) Acute renal failure Current Visit: Yes Status: Acute Qualifiers: Acute renal failure type: A Plan to address problem: Management as per primary care and nephrolgy. (5) Sepsis Current Visit: Yes Status: Acute Qualifiers: Sepsis type: sepsis due to unspecified organism Qualified Code(s): A41.9 - Sepsis, unspecified organism Plan to address problem: Patient is on zosyn. (6) Diabetes Current Visit: No Status: Acute Qualifiers: Diabetes mellitus type: D Diabetes mellitus complication status: D Diabetes mellitus complication detail: D Diabetic retinopathy severity: D Proliferative retinopathy type: P Diabetes mellitus macular edema: D Diabetes mellitus alf insulin use: D Laterality: L Chronic kidney disease stage: C Plan to address problem: Management as per the primary. (7) HTN (hypertension) Current Visit: No Status: Acute Qualifiers: Hypertension type: H Plan to address problem: Management as per the primary. Subjective Date of service: 02/17/17 Interval history: Patient weak, Resting on nasal canula 2 litres.O2 saturation 98%. Objective Vital Signs - 12hr 02/17/17 02/17/17 02/17/17 08:00 09:00 09:10 Temperature 98.9 F Pulse Rate Pulse Rate [ 96 H 97 H Anterior Bilateral Throughout] Pulse Rate [ 110 H Right Radial] Respiratory 18 Rate Respiratory 18 18 Rate [Anterior Bilateral Throughout] Blood Pressure Blood Pressure 159/103 [Right Arm] O2 Sat by Pulse 93 Oximetry 02/17/17 02/17/17 02/17/17 10:00 12:00 13:21 Temperature 97.7 F Pulse Rate 98 H Pulse Rate [ Anterior Bilateral Throughout] Pulse Rate [ 102 H Right Radial] Respiratory 18 Rate Respiratory Rate [Anterior Bilateral Throughout] Blood Pressure 152/93 Blood Pressure 152/93 [Right Arm] O2 Sat by Pulse 93 91 Oximetry 02/17/17 02/17/17 02/17/17 13:46 15:50 16:00 Temperature Pulse Rate Pulse Rate [ 98 H 97 H Anterior Bilateral Throughout] Pulse Rate [ Right Radial] Respiratory 20 Rate Respiratory 18 18 Rate [Anterior Bilateral Throughout] Blood Pressure Blood Pressure [Right Arm] O2 Sat by Pulse 92 Oximetry 02/17/17 16:30 Temperature 98.7 F Pulse Rate Pulse Rate [ Anterior Bilateral Throughout] Pulse Rate [ 68 Right Radial] Respiratory 20 Rate Respiratory Rate [Anterior Bilateral Throughout] Blood Pressure Blood Pressure 148/82 [Right Arm] O2 Sat by Pulse 94 Oximetry Constitutional: no acute distress, alert, other (very weak.) Eyes: non-icteric ENT: oropharynx moist Neck: supple, no lymphadenopathy Ascultation: Bilateral: diminished breath sounds, rales, rhonchi Cardiovascular: regular rate and rhythm Gastrointestinal: normoactive bowel sounds, soft, non-tender Integumentary: normal Extremities: no cyanosis, no edema Neurologic: non-focal exam, pupils equal and round, CN II-XII normal Psychiatric: depressed CBC and BMP: 02/17/17 09:03 02/17/17 09:03 ABG, PT/INR, D-dimer: ABG POC ABG pH 7.413 (7.35-7.45) 02/14/17 14:29 POC ABG pCO2 33.6 (35-45) L 02/14/17 14:29 POC ABG pO2 60 (80-105) L 02/14/17 14:29 POC ABG HCO3 21.5 02/14/17 14:29 POC ABG Total CO2 22 02/14/17 14:29 POC ABG O2 Sat 91 02/14/17 14:29 PT/INR, D-dimer PT 15.1 Sec. (12.2-14.9) H 02/14/17 13:27 INR 1.20 (0.87-1.13) H 02/14/17 13:27 Abnormal lab findings: Abnormal Labs 06/02/14/17 02/15/17 17:55 23:38 04:47 WBC Hgb 9.6 L Hct 31.2 L MCV 79 L MCH 24 L MCHC 31 L RDW 19.9 H Plt Count Seg Neuts % (Manual) 22.0 L Lymphocytes % (Manual) 4.0 L Seg Neutrophils # Man 1.6 L Lymphocytes # (Manual) 0.3 L Sodium Chloride Carbon Dioxide BUN Creatinine Glucose POC Glucose 139 H Calcium Troponin T 0.051 H D Digoxin 02/15/17 02/15/17 02/15/17 04:47 06:37 11:20 WBC Hgb Hct MCV MCH MCHC RDW Plt Count Seg Neuts % (Manual) Lymphocytes % (Manual) Seg Neutrophils # Man Lymphocytes # (Manual) Sodium 146 H Chloride 110.9 H Carbon Dioxide 20 L BUN 52 H Creatinine 0.5 L D Glucose 114 H POC Glucose 136 H 108 H Calcium 7.9 L Troponin T Digoxin 02/15/17 02/15/17 02/16/17 11:54 22:00 06:44 WBC 11.1 H Hgb 10.2 L Hct 33.2 L MCV 78 L MCH 24 L MCHC 31 L RDW 20.0 H Plt Count 123 L Seg Neuts % (Manual) Lymphocytes % (Manual) Seg Neutrophils # Man Lymphocytes # (Manual) Sodium Chloride Carbon Dioxide BUN Creatinine Glucose POC Glucose 120 H 151 H Calcium Troponin T Digoxin 02/16/17 02/16/17 02/16/17 06:44 08:38 13:55 WBC Hgb Hct MCV MCH MCHC RDW Plt Count Seg Neuts % (Manual) Lymphocytes % (Manual) Seg Neutrophils # Man Lymphocytes # (Manual) Sodium 151 H Chloride 117.8 H Carbon Dioxide 21 L BUN 46 H Creatinine 0.6 L Glucose 140 H POC Glucose 143 H 121 H Calcium 8.2 L Troponin T Digoxin 02/16/17 02/16/17 02/17/17 19:41 21:27 09:03 WBC 11.4 H Hgb 9.8 L Hct 31.7 L MCV 77 L MCH 24 L MCHC 31 L RDW 20.0 H Plt Count 135 L Seg Neuts % (Manual) Lymphocytes % (Manual) Seg Neutrophils # Man Lymphocytes # (Manual) Sodium Chloride Carbon Dioxide BUN Creatinine Glucose POC Glucose 172 H Calcium Troponin T Digoxin 0.5 L 02/17/17 02/17/17 09:03 13:25 WBC Hgb Hct MCV MCH MCHC RDW Plt Count Seg Neuts % (Manual) Lymphocytes % (Manual) Seg Neutrophils # Man Lymphocytes # (Manual) Sodium 152 H Chloride 118.6 H Carbon Dioxide 21 L BUN 38 H Creatinine 0.6 L Glucose 149 H POC Glucose 138 H Calcium Troponin T Digoxin Chest x-ray: report reviewed (CHF) CT scan - chest: report reviewed (No PE. Patchy bilateral pulmonary infiltrates)
[2017-02-17] MEDS: LANOXIN PO SCH (18:55)
--- NOTE | 2017-02-17 19:17 | Progress Note ---
Assessment and Plan - Patient Problems (1) Hypernatremia Current Visit: Yes Status: Acute Plan to address problem: STABLE CARDIAC,,,NEEDS FREE WATER FOR HYPER-Na+ (2) Pneumonia Current Visit: Yes Status: Acute Qualifiers: Pneumonia type: due to unspecified organism Aspiration pneumonia type: A Laterality: bilateral Lung location: unspecified part of lung Qualified Code (s): J18.9 - Pneumonia, unspecified organism (3) Coronary artery disease Current Visit: No Status: Acute Qualifiers: Coronary Disease-Associated Artery/Lesion type: unspecified vessel or lesion type [place] vs. transplanted heart: [place] heart Associated angina: angina presence unspecified Qualified Code(s): I25.10 - Atherosclerotic heart disease of [place] coronary artery without angina pectoris (4) Diabetes Current Visit: No Status: Acute Qualifiers: Diabetes mellitus type: D Diabetes mellitus complication status: D Diabetes mellitus complication detail: D Diabetic retinopathy severity: D Proliferative retinopathy type: P Diabetes mellitus macular edema: D Diabetes mellitus jail insulin use: D Laterality: L Chronic kidney disease stage: C (5) HTN (hypertension) Current Visit: No Status: Acute Qualifiers: Hypertension type: H (6) Ischemic cardiomyopathy Current Visit: No Status: Acute Subjective Date of service: 02/17/17 Interval history: SOB IMPROVED Objective Vital Signs Temp Pulse Pulse Pulse Resp Resp BP 02/17/17 18:55 82 02/17/17 16:30 98.7 F 68 20 02/17/17 16:00 97 H 18 02/17/17 15:50 98 H 18 02/17/17 13:46 20 02/17/17 13:21 98 H 152/93 02/17/17 12:00 97.7 F 102 H 18 02/17/17 10:00 02/17/17 09:10 97 H 18 02/17/17 09:00 96 H 18 02/17/17 08:00 98.9 F 110 H 18 02/17/17 05:00 98.9 F 90 100 H 19 02/17/17 00:00 98.7 F 87 18 02/16/17 20:00 98.5 F 88 20 02/16/17 19:45 95 H 18 02/16/17 19:36 02/16/17 19:35 90 18 BP Pulse Ox 02/17/17 18:55 02/17/17 16:30 148/82 94 02/17/17 16:00 02/17/17 15:50 02/17/17 13:46 92 02/17/17 13:21 02/17/17 12:00 152/93 91 02/17/17 10:00 93 02/17/17 09:10 02/17/17 09:00 02/17/17 08:00 159/103 93 02/17/17 05:00 148/75 98 02/17/17 00:00 144/79 94 02/16/17 20:00 133/70 96 02/16/17 19:45 02/16/17 19:36 98 02/16/17 19:35 - Physical Examination General: No Apparent Distress HEENT: Positive: PERRL Cardiac: Positive: Reg Rate and Rhythm Lungs: Positive: Rhonchi Extremities: Present: edema (NO) - Labs and Meds CBC 02/17/17 Range/Units 09:03 WBC 11.4 H (4.5-11.0) K/mm3 RBC 4.12 (3.65-5.03) M/mm3 Hgb 9.8 L (11.8-15.2) gm/dl Hct 31.7 L (35.5-45.6) % Plt Count 135 L (140-440) K/mm3 Comprehensive Metabolic Panel 02/17/17 Range/Units 09:03 Sodium 152 H (137-145) mmol/L Potassium 3.8 (3.6-5.0) mmol/L Chloride 118.6 H (98-107) mmol/L Carbon Dioxide 21 L (22-30) mmol/L BUN 38 H (9-20) mg/dL Creatinine 0.6 L (0.8-1.5) mg/dL Glucose 149 H (75-100) mg/dL Calcium 8.6 (8.4-10.2) mg/dL
[2017-02-18] MEDS: MORPHINE IV PRN (00:49)
[2017-02-18] MEDS: DUONEB 0.5 MG-3 MG/3 ML SOLN IH SCH ×4 (02:01→21:20)
[2017-02-18] MEDS: ZOSYN/NS 4.5GM/100ML 4.5 GM/100 ML VIAL IV SCH ×3 (05:10→21:31)
[2017-02-18 06:43] LABS: Hematocrit 28.8 % (35.5-45.6); Hemoglobin 9.4 gm/dl (11.8-15.2); Mean Corpuscular HGB Conc 33 % (32-34); Mean Corpuscular Volume 76 fl (84-94); Platelet Count 138 K/mm3 (140-440); Red Cell Distribution Width 19.8 % (13.2-15.2); White Blood Count 9.9 K/mm3 (4.5-11.0)
[2017-02-18 06:52] LABS: Mean Corpuscular Hemoglobin 25 pg (28-32)
[2017-02-18 06:59] LABS: Blood Urea Nitrogen 29 mg/dL (9-20); Calcium 8.2 mg/dL (8.4-10.2); Carbon Dioxide 28 mmol/L (22-30); Chloride 115.9 mmol/L (98-107); Glucose 133 mg/dL (75-100); Potassium 3.4 mmol/L (3.6-5.0); Sodium 154 mmol/L (137-145)
[2017-02-18] MEDS ORDERED: PANCREAZE DR 10,500 UNIT FEEDTUBE PRN (07:24)
[2017-02-18] MEDS ORDERED: MAGNESIUM SULFATE IV ONE (07:25)
--- NOTE | 2017-02-18 07:30 | Progress Note ---
Assessment and Plan Assessment and plan: Patient is a 72-year-old [place] man from [place] with a history afib not on a/c due to GI bleed, AOCD, CAD s/p 3 vessel CABG, CHF/ICMP EF 25-30%-->improved to 45-50% on 01/2017 ECHO (per Cardiology), diabetes mellitus, stroke, GERD and DLP who presents with SOB. pO2 was on 60 on 3 liters of O2. CTA of the chest showed no evidence of PE. Ascending aortic diameter 3.5 cm. 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 Also noted atherosclerotic ulcer at the descending thoracic aorta, diffuse patchy airspace opacities bilaterally suggested pneumonitis and less likely pulmonary edema==> -Acute hypoxic respiratory failure: Pulm input noted, concerning for aspiration pneumonia. keep HOB >45 deg. continue abx, speech for aspiration stuides, support with O2, pulm is following. SOB improved -Acute bilateral aspiration pneumonitis: IV antibiotics -Atypical chest pain- likely secondary to pneumonitis. cardiology input noted- Continue metoprolol xl and digoxin -NSVT- eight runs noted on monitor. -Hypokalemia- Replace -Hypernatremia- Increase free water flushes to 250cc/6hrs -Thrombocytopenia-STABLE. monitor closely -Suspected severe malnutrition, albumin 2.7 with dietary support. POSSIBLE MURAL thrumbus in descending thoracic aorta- Consulted Vascular- call placed-NO INTERVENTION. -Sepsis Pneumonia, poa: blood ctx pending, continue abx, limit ivf due to chf history-MICRO REVIEWED AND NO GROWTH -Paroxysmal Afib- currently in sinus rhythm-not on anticoagulation due to recent GI bleed -Hx of Ischemic Cardiomyopathy-EF improved EF 45-50% on echo 01/2017 -Hx of CAD s/p 3 way CABG-[facility] 05/2016 reports 3 bypass grafts have remained patent, and he is on medical therapy for small vessel coronary disease. Ejection fraction 25-30%. Diabetes mellitus-SLIDING SCALE COVERAGE, Nonspecific elevated troponin-CARDIOLOGY FOLLOWING. DVT/GI prophy Disposition- In am once sodium and pulmonary status improved. Language Line used, Danish language line. History Interval history: Patient seen and examined today, in no respiratory distress. resting comfortable. nursing staff reports 5 runs of NSVT. Hospitalist Physical - Physical exam Narrative exam: VITAL SIGNS: Reviewed. GENERAL: The patient appeared well nourished and normally developed. Vital signs as documented. HEAD: No signs of head trauma. EYES: Pupils are equal. Extraocular motions intact. EARS: Hearing grossly intact. MOUTH: Oropharynx is normal. NECK: No adenopathy, no JVD. CHEST: Chest with clear breath sounds bilaterally. No wheezes, rales, or rhonchi. CARDIAC: Regular rate and rhythm. S1 and S2, without murmurs, gallops, or rubs. VASCULAR: No Edema. Peripheral pulses normal and equal in all extremities. ABDOMEN: Soft, without detectable tenderness. No sign of distention. No rebound or guarding, and no masses palpated. Bowel Sounds normal. MUSCULOSKELETAL: Good range of motion of all major joints. Extremities without clubbing, cyanosis or edema. NEUROLOGIC EXAM: Alert and oriented x 3. No focal sensory or strength deficits. Speech normal. Follows commands. PSYCHIATRIC: Mood normal. SKIN: No rash or lesions. - Constitutional Vitals: Temp Pulse Resp BP Pulse Ox 98.5 F 90 18 155/77 98 02/18/17 04:00 02/18/17 05:00 02/18/17 04:00 02/18/17 04:00 02/18/17 04:00 General appearance: Present: no acute distress, cachectic Results - Labs CBC & Chem 7: 02/18/17 06:18 02/18/17 06:18 Labs: Laboratory Last Values WBC 9.9 K/mm3 (4.5-11.0) 02/18/17 06:18 RBC 3.80 M/mm3 (3.65-5.03) 02/18/17 06:18 Hgb 9.4 gm/dl (11.8-15.2) L 02/18/17 06:18 Hct 28.8 % (35.5-45.6) L 02/18/17 06:18 MCV 76 fl (84-94) L 02/18/17 06:18 MCH 25 pg (28-32) L 02/18/17 06:18 MCHC 33 % (32-34) 02/18/17 06:18 RDW 19.8 % (13.2-15.2) H 02/18/17 06:18 Plt Count 138 K/mm3 (140-440) L 02/18/17 06:18 Add Manual Diff Complete 02/15/17 04:47 Total Counted 100 02/15/17 04:47 Seg Neutrophils % Bus Van Driver 02/15/17 04:47 Seg Neuts % (Manual) 22.0 % (40.0-70.0) L 02/15/17 04:47 Band Neutrophils % 71.0 % 02/15/17 04:47 Lymphocytes % (Manual) 4.0 % (13.4-35.0) L 02/15/17 04:47 Reactive Lymphs % (Man) 0 % 02/15/17 04:47 Monocytes % (Manual) 3.0 % (0.0-7.3) 02/15/17 04:47 Eosinophils % (Manual) 0 % (0.0-4.3) 02/15/17 04:47 Basophils % (Manual) 0 % (0.0-1.8) 02/15/17 04:47 Metamyelocytes % 0 % 02/15/17 04:47 Myelocytes % 0 % 02/15/17 04:47 Promyelocytes % 0 % 02/15/17 04:47 Blast Cells % 0 % 02/15/17 04:47 Nucleated RBC % Not Reportable 02/15/17 04:47 Seg Neutrophils # Man 1.6 K/mm3 (1.8-7.7) L 02/15/17 04:47 Band Neutrophils # 5.2 K/mm3 02/15/17 04:47 Lymphocytes # (Manual) 0.3 K/mm3 (1.2-5.4) L 02/15/17 04:47 Abs React Lymphs (Man) 0.0 K/mm3 02/15/17 04:47 Monocytes # (Manual) 0.2 K/mm3 (0.0-0.8) 02/15/17 04:47 Eosinophils # (Manual) 0.0 K/mm3 (0.0-0.4) 02/15/17 04:47 Basophils # (Manual) 0.0 K/mm3 (0.0-0.1) 02/15/17 04:47 Metamyelocytes # 0.0 K/mm3 02/15/17 04:47 Myelocytes # 0.0 K/mm3 02/15/17 04:47 Promyelocytes # 0.0 K/mm3 02/15/17 04:47 Blast Cells # 0.0 K/mm3 02/15/17 04:47 WBC Morphology Not Reportable 02/15/17 04:47 Hypersegmented Neuts Not Reportable 02/15/17 04:47 Hyposegmented Neuts Not Reportable 02/15/17 04:47 Hypogranular Neuts Not Reportable 02/15/17 04:47 Smudge Cells Not Reportable 02/15/17 04:47 Toxic Granulation Not Reportable 02/15/17 04:47 Toxic Vacuolation Not Reportable 02/15/17 04:47 Dohle Bodies Not Reportable 02/15/17 04:47 Pelger-Huet Anomaly Not Reportable 02/15/17 04:47 Celeste Rods Not Reportable 02/15/17 04:47 Platelet Estimate Appears normal 02/15/17 04:47 Clumped Platelets Not Reportable 02/15/17 04:47 Plt Clumps, EDTA Not Reportable 02/15/17 04:47 Large Platelets Not Reportable 02/15/17 04:47 Giant Platelets Not Reportable 02/15/17 04:47 Platelet Satelliting Not Reportable 02/15/17 04:47 Plt Morphology Comment Not Reportable 02/15/17 04:47 RBC Morphology Not Reportable 02/15/17 04:47 Dimorphic RBCs Not Reportable 02/15/17 04:47 Polychromasia Not Reportable 02/15/17 04:47 Hypochromasia Few 02/15/17 04:47 Poikilocytosis Not Reportable 02/15/17 04:47 Anisocytosis 1+ 02/15/17 04:47 Microcytosis Not Reportable 02/15/17 04:47 Macrocytosis Not Reportable 02/15/17 04:47 Spherocytes Not Reportable 02/15/17 04:47 Pappenheimer Bodies Not Reportable 02/15/17 04:47 Sickle Cells Not Reportable 02/15/17 04:47 Target Cells Not Reportable 02/15/17 04:47 Tear Drop Cells Not Reportable 02/15/17 04:47 Ovalocytes Not Reportable 02/15/17 04:47 Helmet Cells Not Reportable 02/15/17 04:47 Schaeffer-[place] Bodies Not Reportable 02/15/17 04:47 Seaman Rings Not Reportable 02/15/17 04:47 Jean-Pierre Cells Not Reportable 02/15/17 04:47 Bite Cells Not Reportable 02/15/17 04:47 Crenated Cell Not Reportable 02/15/17 04:47 Elliptocytes Not Reportable 02/15/17 04:47 Acanthocytes (Spur) Not Reportable 02/15/17 04:47 Rouleaux Not Reportable 02/15/17 04:47 Hemoglobin C Crystals Not Reportable 02/15/17 04:47 Schistocytes Not Reportable 02/15/17 04:47 Malaria parasites Not Reportable 02/15/17 04:47 Brenton Bodies Not Reportable 02/15/17 04:47 Hem Pathologist Commnt No 02/15/17 04:47 PT 15.1 Sec. (12.2-14.9) H 02/14/17 13:27 INR 1.20 (0.87-1.13) H 02/14/17 13:27 APTT 40.4 Sec. (24.2-36.6) H 02/14/17 13:27 POC ABG pH 7.413 (7.35-7.45) 02/14/17 14:29 POC ABG pCO2 33.6 (35-45) L 02/14/17 14:29 POC ABG pO2 60 (80-105) L 02/14/17 14:29 POC ABG HCO3 21.5 02/14/17 14:29 POC ABG Total CO2 22 02/14/17 14:29 POC ABG O2 Sat 91 02/14/17 14:29 POC ABG Base Excess -3 02/14/17 14:29 FiO2 36 % 02/14/17 14:29 Sodium 154 mmol/L (137-145) H 02/18/17 06:18 Potassium 3.4 mmol/L (3.6-5.0) L 02/18/17 06:18 Chloride 115.9 mmol/L (98-107) H 02/18/17 06:18 Carbon Dioxide 21 mmol/L (22-30) L 02/17/17 09:03 Anion Gap 16 mmol/L 02/17/17 09:03 BUN 29 mg/dL (9-20) H 02/18/17 06:18 Creatinine 0.5 mg/dL (0.8-1.5) L 02/18/17 06:18 Estimated GFR > 60 ml/min 02/18/17 06:18 BUN/Creatinine Ratio 58.00 % 02/18/17 06:18 Glucose 133 mg/dL (75-100) H 02/18/17 06:18 POC Glucose 156 (70-105) H 02/17/17 20:12 Lactic Acid 1.10 mmol/L (0.7-2.0) 02/14/17 17:55 Calcium 8.2 mg/dL (8.4-10.2) L 02/18/17 06:18 Magnesium 2.40 mg/dL (1.7-2.3) H 02/14/17 13:27 Total Bilirubin 0.80 mg/dL (0.1-1.2) 02/14/17 13:27 AST 20 units/L (5-40) 02/14/17 13:27 ALT 9 units/L (7-56) 02/14/17 13:27 Alkaline Phosphatase 61 units/L (35-129) 02/14/17 13:27 Total Creatine Kinase 27 units/L (55-170) L 02/14/17 13:27 Troponin T 0.051 ng/mL (0.00-0.029) H D 02/14/17 17:55 NT-Pro-B Natriuret Pep 8219 pg/mL (0-900) H 02/14/17 13:27 Total Protein 6.6 g/dL (6.3-8.2) 02/14/17 13:27 Albumin 2.7 g/dL (3.9-5) L 02/14/17 13:27 Albumin/Globulin Ratio 0.7 % 02/14/17 13:27 Triglycerides 107 mg/dL (2-149) 02/14/17 13:27 Cholesterol 56 mg/dL (50-199) 02/14/17 13:27 LDL Cholesterol Direct 14 mg/dL (50-130) L 02/14/17 13:27 HDL Cholesterol 21 mg/dL (40-59) L 02/14/17 13:27 Cholesterol/HDL Ratio 2.66 % 02/14/17 13:27 Lipase 52 units/L (13-60) 02/14/17 13:27 Digoxin 0.5 ng/mL (0.9-2.0) L 02/16/17 19:41
[2017-02-18 07:41] LABS: Anion Gap 14 mmol/L
[2017-02-18] MEDS: BROVANA NEBU IH SCH ×3 (07:45→21:20)
[2017-02-18] MEDS ORDERED: SODIUM BICARBONATE FEEDTUBE PRN (08:00)
[2017-02-18] MEDS ORDERED: K-DUR PO ONE ×2 (08:00→11:00)
[2017-02-18] MEDS ORDERED: SIMPLE SYRUP FEEDTUBE PRN ×2 (08:00)
[2017-02-18] MEDS: NOVOLOG SUB-Q SCH ×3 (08:49→17:47)
[2017-02-18] MEDS: PULMICORT IH SCH ×2 (09:03→21:20)
[2017-02-18] MEDS: PEPCID PO SCH (11:31)
[2017-02-18] MEDS: TOPROL XL PO SCH (11:31)
[2017-02-18] MEDS: HEPARIN SUB-Q SCH ×2 (11:33→21:32)
--- NOTE | 2017-02-18 11:43 | Progress Note ---
Assessment and Plan - Patient Problems (1) Hypernatremia Current Visit: Yes Status: Acute Plan to address problem: STABLE CARDIAC,,,NEEDS FREE WATER FOR HYPER-Na+ (2) Pneumonia Current Visit: Yes Status: Acute Qualifiers: Pneumonia type: due to unspecified organism Aspiration pneumonia type: A Laterality: bilateral Lung location: unspecified part of lung Qualified Code (s): J18.9 - Pneumonia, unspecified organism (3) Coronary artery disease Current Visit: No Status: Acute Qualifiers: Coronary Disease-Associated Artery/Lesion type: unspecified vessel or lesion type [place] vs. transplanted heart: [place] heart Associated angina: angina presence unspecified Qualified Code(s): I25.10 - Atherosclerotic heart disease of [place] coronary artery without angina pectoris (4) Diabetes Current Visit: No Status: Acute Qualifiers: Diabetes mellitus type: D Diabetes mellitus complication status: D Diabetes mellitus complication detail: D Diabetic retinopathy severity: D Proliferative retinopathy type: P Diabetes mellitus macular edema: D Diabetes mellitus snf insulin use: D Laterality: L Chronic kidney disease stage: C (5) HTN (hypertension) Current Visit: No Status: Acute Qualifiers: Hypertension type: H (6) Ischemic cardiomyopathy Current Visit: No Status: Acute Subjective Date of service: 02/18/17 Interval history: SOB IMPROVED Objective Vital Signs Temp Pulse Pulse Pulse Resp Resp BP 02/18/17 11:31 97 H 155/87 02/18/17 09:19 108 H 24 02/18/17 09:00 109 H 22 02/18/17 07:15 98.2 F 97 H 12 02/18/17 05:00 90 02/18/17 04:00 98.5 F 97 H 18 02/18/17 00:00 98.2 F 107 H 18 02/17/17 20:55 121 H 20 02/17/17 20:48 118 H 21 02/17/17 20:47 02/17/17 19:38 98.4 F 97 H 18 02/17/17 18:55 82 02/17/17 16:30 98.7 F 68 20 02/17/17 16:00 97 H 18 02/17/17 15:50 98 H 18 02/17/17 13:46 20 02/17/17 13:21 98 H 152/93 02/17/17 12:00 97.7 F 102 H 18 BP Pulse Ox 02/18/17 11:31 02/18/17 09:19 02/18/17 09:00 91 02/18/17 07:15 155/87 92 02/18/17 05:00 02/18/17 04:00 155/77 98 02/18/17 00:00 144/84 97 02/17/17 20:55 02/17/17 20:48 02/17/17 20:47 89 02/17/17 19:38 173/90 98 02/17/17 18:55 02/17/17 16:30 148/82 94 02/17/17 16:00 02/17/17 15:50 02/17/17 13:46 92 02/17/17 13:21 02/17/17 12:00 152/93 91 - Physical Examination General: No Apparent Distress HEENT: Positive: PERRL Neck: Positive: neck supple Cardiac: Positive: Reg Rate and Rhythm Lungs: Positive: Rhonchi Extremities: Present: edema (NO) - Labs and Meds CBC 02/18/17 Range/Units 06:18 WBC 9.9 (4.5-11.0) K/mm3 RBC 3.80 (3.65-5.03) M/mm3 Hgb 9.4 L (11.8-15.2) gm/dl Hct 28.8 L (35.5-45.6) % Plt Count 138 L (140-440) K/mm3 Comprehensive Metabolic Panel 02/18/17 Range/Units 06:18 Sodium 154 H (137-145) mmol/L Potassium 3.4 L (3.6-5.0) mmol/L Chloride 115.9 H (98-107) mmol/L Carbon Dioxide 28 D (22-30) mmol/L BUN 29 H (9-20) mg/dL Creatinine 0.5 L (0.8-1.5) mg/dL Glucose 133 H (75-100) mg/dL Calcium 8.2 L (8.4-10.2) mg/dL
[2017-02-18] MEDS ORDERED: POTASSIUM CHLORIDE FEEDTUBE ONE (12:00)
[2017-02-18] MEDS: LANOXIN PO SCH (16:04)
--- NOTE | 2017-02-18 23:44 | Progress Note ---
Assessment and Plan Patient Sleeping at this time. On nasal canula 2 litres.O2 saturation 97%. - Patient Problems (1) Aspiration pneumonia Current Visit: No Status: Acute Qualifiers: Aspiration pneumonia type: A Laterality: L Lung location: L Plan to address problem: Patient is on Zosyn (2) Acute respiratory failure with hypoxia Current Visit: Yes Status: Acute Plan to address problem: O2 supplementation 2 litres via nasal canula. Brovanna/Budesonide aerosol treatments q 12 hours. Continue S/C Heparin. Continue Famotadine. (3) Acute exacerbation of congestive heart failure Current Visit: Yes Status: Acute Qualifiers: Congestive heart failure type: combined Qualified Code(s): I50.43 - Acute on chronic combined systolic (congestive) and diastolic (congestive) heart failure Plan to address problem: Management as per primary and cardiology. (4) Acute renal failure Current Visit: Yes Status: Acute Qualifiers: Acute renal failure type: A Plan to address problem: Management as per primary care and nephrolgy. (5) Sepsis Current Visit: Yes Status: Acute Qualifiers: Sepsis type: sepsis due to unspecified organism Qualified Code(s): A41.9 - Sepsis, unspecified organism Plan to address problem: Patient is on zosyn. (6) Diabetes Current Visit: No Status: Acute Qualifiers: Diabetes mellitus type: D Diabetes mellitus complication status: D Diabetes mellitus complication detail: D Diabetic retinopathy severity: D Proliferative retinopathy type: P Diabetes mellitus macular edema: D Diabetes mellitus termination clerk insulin use: D Laterality: L Chronic kidney disease stage: C Plan to address problem: Management as per the primary. (7) HTN (hypertension) Current Visit: No Status: Acute Qualifiers: Hypertension type: H Plan to address problem: Management as per the primary. Subjective Date of service: 02/18/17 Interval history: Patient sleeping at this time. On nasal canula 2 litres.O2 saturation 97%. Objective Vital Signs - 12hr 02/18/17 02/18/17 02/18/17 12:00 16:04 16:05 Temperature Pulse Rate 86 85 Pulse Rate [ Anterior Bilateral Throughout] Pulse Rate [ Right Radial] Respiratory Rate Respiratory Rate [Anterior Bilateral Throughout] Blood Pressure [Right Arm] O2 Sat by Pulse 98 Oximetry 02/18/17 02/18/17 02/18/17 18:41 20:00 21:23 Temperature 98.4 F 98.5 F Pulse Rate Pulse Rate [ 81 Anterior Bilateral Throughout] Pulse Rate [ 71 95 H Right Radial] Respiratory 12 18 Rate Respiratory 16 Rate [Anterior Bilateral Throughout] Blood Pressure 154/79 149/91 [Right Arm] O2 Sat by Pulse 99 97 Oximetry 02/18/17 02/18/17 02/18/17 21:26 21:38 23:06 Temperature Pulse Rate Pulse Rate [ 87 Anterior Bilateral Throughout] Pulse Rate [ Right Radial] Respiratory Rate Respiratory 16 Rate [Anterior Bilateral Throughout] Blood Pressure [Right Arm] O2 Sat by Pulse 90 97 Oximetry Constitutional: no acute distress, alert, other (very weak.) Eyes: non-icteric ENT: oropharynx moist Neck: supple, no lymphadenopathy Ascultation: Bilateral: diminished breath sounds, rales, rhonchi Cardiovascular: regular rate and rhythm Gastrointestinal: normoactive bowel sounds, soft, non-tender Integumentary: normal Extremities: no cyanosis, no edema Neurologic: non-focal exam, pupils equal and round, CN II-XII normal Psychiatric: depressed CBC and BMP: 02/18/17 06:18 02/18/17 06:18 ABG, PT/INR, D-dimer: ABG POC ABG pH 7.413 (7.35-7.45) 02/14/17 14:29 POC ABG pCO2 33.6 (35-45) L 02/14/17 14:29 POC ABG pO2 60 (80-105) L 02/14/17 14:29 POC ABG HCO3 21.5 02/14/17 14:29 POC ABG Total CO2 22 02/14/17 14:29 POC ABG O2 Sat 91 02/14/17 14:29 PT/INR, D-dimer PT 15.1 Sec. (12.2-14.9) H 02/14/17 13:27 INR 1.20 (0.87-1.13) H 02/14/17 13:27 Abnormal lab findings: Abnormal Labs 02/14/17 02/14/17 02/15/17 17:55 23:38 04:47 WBC Hgb 9.6 L Hct 31.2 L MCV 79 L MCH 24 L MCHC 31 L RDW 19.9 H Plt Count Seg Neuts % (Manual) 22.0 L Lymphocytes % (Manual) 4.0 L Seg Neutrophils # Man 1.6 L Lymphocytes # (Manual) 0.3 L Sodium Potassium Chloride Carbon Dioxide BUN Creatinine Glucose POC Glucose 139 H Calcium Troponin T 0.051 H D Digoxin 02/15/17 02/15/17 02/15/17 04:47 06:37 11:20 WBC Hgb Hct MCV MCH MCHC RDW Plt Count Seg Neuts % (Manual) Lymphocytes % (Manual) Seg Neutrophils # Man Lymphocytes # (Manual) Sodium 146 H Potassium Chloride 110.9 H Carbon Dioxide 20 L BUN 52 H Creatinine 0.5 L D Glucose 114 H POC Glucose 136 H 108 H Calcium 7.9 L Troponin T Digoxin 02/15/17 02/15/17 02/16/17 11:54 22:00 06:44 WBC 11.1 H Hgb 10.2 L Hct 33.2 L MCV 78 L MCH 24 L MCHC 31 L RDW 20.0 H Plt Count 123 L Seg Neuts % (Manual) Lymphocytes % (Manual) Seg Neutrophils # Man Lymphocytes # (Manual) Sodium Potassium Chloride Carbon Dioxide BUN Creatinine Glucose POC Glucose 120 H 151 H Calcium Troponin T Digoxin 02/16/17 02/16/17 02/16/17 06:44 08:38 13:55 WBC Hgb Hct MCV MCH MCHC RDW Plt Count Seg Neuts % (Manual) Lymphocytes % (Manual) Seg Neutrophils # Man Lymphocytes # (Manual) Sodium 151 H Potassium Chloride 117.8 H Carbon Dioxide 21 L BUN 46 H Creatinine 0.6 L Glucose 140 H POC Glucose 143 H 121 H Calcium 8.2 L Troponin T Digoxin 02/16/17 02/16/17 02/17/17 19:41 21:27 09:03 WBC 11.4 H Hgb 9.8 L Hct 31.7 L MCV 77 L MCH 24 L MCHC 31 L RDW 20.0 H Plt Count 135 L Seg Neuts % (Manual) Lymphocytes % (Manual) Seg Neutrophils # Man Lymphocytes # (Manual) Sodium Potassium Chloride Carbon Dioxide BUN Creatinine Glucose POC Glucose 172 H Calcium Troponin T Digoxin 0.5 L 02/17/17 02/17/17 02/17/17 09:03 13:25 18:44 WBC Hgb Hct MCV MCH MCHC RDW Plt Count Seg Neuts % (Manual) Lymphocytes % (Manual) Seg Neutrophils # Man Lymphocytes # (Manual) Sodium 152 H Potassium Chloride 118.6 H Carbon Dioxide 21 L BUN 38 H Creatinine 0.6 L Glucose 149 H POC Glucose 138 H 144 H Calcium Troponin T Digoxin 02/17/17 02/18/17 02/18/17 20:12 06:18 06:18 WBC Hgb 9.4 L Hct 28.8 L MCV 76 L MCH 25 L MCHC RDW 19.8 H Plt Count 138 L Seg Neuts % (Manual) Lymphocytes % (Manual) Seg Neutrophils # Man Lymphocytes # (Manual) Sodium 154 H Potassium 3.4 L Chloride 115.9 H Carbon Dioxide BUN 29 H Creatinine 0.5 L Glucose 133 H POC Glucose 156 H Calcium 8.2 L Troponin T Digoxin
[2017-02-19] MEDS: NOVOLOG SUB-Q SCH ×3 (00:57→12:45)
[2017-02-19] MEDS: ZOSYN/NS 4.5GM/100ML 4.5 GM/100 ML VIAL IV SCH ×2 (06:19→14:09)
[2017-02-19 08:25] LABS: Hematocrit 30.9 % (35.5-45.6); Hemoglobin 9.6 gm/dl (11.8-15.2); Mean Corpuscular HGB Conc 31 % (32-34); Mean Corpuscular Volume 77 fl (84-94); Platelet Count 164 K/mm3 (140-440); Red Blood Count 3.99 M/mm3 (3.65-5.03); White Blood Count 8.5 K/mm3 (4.5-11.0)
[2017-02-19 08:32] LABS: Mean Corpuscular Hemoglobin 24 pg (28-32); Red Cell Distribution Width 20.3 % (13.2-15.2)
[2017-02-19] MEDS: DUONEB 0.5 MG-3 MG/3 ML SOLN IH SCH ×2 (09:06→15:56)
[2017-02-19] MEDS: PULMICORT IH SCH (09:06)
[2017-02-19] MEDS: BROVANA NEBU IH SCH (09:06)
[2017-02-19] MEDS: HEPARIN SUB-Q SCH (09:47)
[2017-02-19] MEDS: TOPROL XL PO SCH (09:50)
[2017-02-19] MEDS: PEPCID PO SCH (09:53)
[2017-02-19 10:15] LABS: Anion Gap 17 mmol/L; Blood Urea Nitrogen 21 mg/dL (9-20); Calcium 8.1 mg/dL (8.4-10.2); Carbon Dioxide 26 mmol/L (22-30); Chloride 106.2 mmol/L (98-107); Glucose 124 mg/dL (75-100); Potassium 3.7 mmol/L (3.6-5.0); Sodium 145 mmol/L (137-145)
--- NOTE | 2017-02-19 10:42 | Discharge Summary ---
Providers - Providers Date of Admission: 02/14/17 16:59 Date of discharge: 02/19/17 Attending physician: RADHA MCGEE MD 02/14/17 17:18 Consult to Physician [CONS] Routine Consulting Provider: BRODIE RAO Reason For Exam: acute respiratory failure Place consult to:: Dr. Arguello Notified:: please call 02/15/17 06:18 Consult to Wound/ET Nurse [CONS] Routine Reason For Exam: wound eval onbuttocks and PEG on admit 02/15/17 16:45 Consult to Physician [CONS] Routine Consulting Provider: CORIE MICHELE Reason For Exam: Descending aorta with mural thrombus Place consult to:: Tiffanie SEGAL Notified:: a service Phone number called:: [phone] Was contact made?: Yes If yes, spoke with:: mariann Time called:: 17:02 02/17/17 16:31 Speech Therapy Evaluation and Treat [CONS] Routine Reason For Exam: CONCERN FOR ASPIRATION PNEUMONIA 02/18/17 07:27 Occupational Therapy Evaluate and Treat [CONS] Routine Comment: Reason For Exam: debility Physical Therapy Evaluation and Treat [CONS] Routine Comment: Reason For Exam: debility Primary care physician: CLINICAL LABORATORY ASSISTANT Hospitalization Reason for admission: SOB Condition: Stable Hospital course: Patient is a 72-year-old [place] man from [place] with a history afib not on a/c due to GI bleed, AOCD, CAD s/p 3 vessel CABG, CHF/ICMP EF 25-30%-->improved to 45-50% on 01/2017 ECHO (per Cardiology), diabetes mellitus, stroke, GERD and DLP who presents with SOB. pO2 was on 60 on 3 liters of O2. CTA of the chest showed no evidence of PE. Ascending aortic diameter 3.5 cm. 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 Also noted atherosclerotic ulcer at the descending thoracic aorta, diffuse patchy airspace opacities bilaterally suggested pneumonitis and less likely pulmonary edema==> Patient does have a PEG tube in place and modified barium swallow is planned for outpatient. He was treated with free water for resolution of his hypernatremia. His mental status did improve initially was felt that the patient did not speak [place]an but on improvement of his mental status he did speak [place]an however and broken forearm. He was seen by cardiology with recommendation for conservative medical management. Patient does not have an internal cardiac defibrillator. He is following with cardiology for further review of this. He was treated for bilateral aspiration pneumonitis. Again needs to keep head of bed greater than 45 to prevent aspiration or reduce it to embarrassment and rhythm. No family was present in the hospital for discussion. I also recommend an outpatient vascular evaluation, although they also saw the patient the hospital and recommended no intervention at this time. For the mural thrombosis.. No ACEI as patient was unsure about allergy and repeat echo has EF >45deg -Acute hypoxic respiratory failure -Acute bilateral aspiration pneumonitis -ACUTE enecephalopathy-Toxic -Atypical chest pain- likely secondary to pneumonitis. -NSVT- . -Hypokalemia -Hypernatremia -Thrombocytopenia --Suspected severe malnutrition, albumin 2.7 POSSIBLE MURAL thrumbus in descending thoracic aorta -Sepsis Pneumonia, poa -Paroxysmal Afib -Hx of Ischemic Cardiomyopathy-EF improved EF 45-50% on echo 01/2017 -Hx of CAD s/p 3 way CABG-[facility] 05/2016 reports 3 bypass grafts have remained patent, and he is on medical therapy for small vessel coronary disease. Ejection fraction 25-30%. Diabetes mellitus- Nonspecific elevated troponin-NSTEMI TYPE 2 Disposition: DC/TX-03 [facility] Time spent for discharge: 35 mins Core Measure Documentation - Palliative Care Palliative Care/ Comfort Measures: Not Applicable - Core Measures Any of the following diagnoses?: heart failure - VTE Discharge Requirements Deep Vein Thrombosis/Pulmonary Embolism Present on Admission: No - Heart Failure Discharge Requirements SAFIA/ARB for LVSD if EF <40%: Not Applicable Beta vanda at discharge: Yes Exam - Physical Exam Narrative exam: VITAL SIGNS: Reviewed. GENERAL: The patient appeared well nourished and normally developed. Vital signs as documented. HEAD: No signs of head trauma. EYES: Pupils are equal. Extraocular motions intact. EARS: Hearing grossly intact. MOUTH: Oropharynx is normal. NECK: No adenopathy, no JVD. CHEST: Chest with clear breath sounds bilaterally. No wheezes, rales, or rhonchi. CARDIAC: Regular rate and rhythm. S1 and S2, without murmurs, gallops, or rubs. VASCULAR: No Edema. Peripheral pulses normal and equal in all extremities. ABDOMEN: Soft, without detectable tenderness. peg tube in place. No sign of distention. No rebound or guarding, and no masses palpated. Bowel Sounds normal. MUSCULOSKELETAL: Good range of motion of all major joints. Extremities without clubbing, cyanosis or edema. NEUROLOGIC EXAM: Alert and oriented x 3. No focal sensory or strength deficits. Speech normal. Follows commands. PSYCHIATRIC: Mood normal. SKIN: No rash or lesions. - Constitutional Vitals: Temp Pulse Resp BP Pulse Ox 97.5 F L 73 22 158/77 97 02/19/17 07:50 02/19/17 09:50 02/19/17 09:28 02/19/17 09:50 02/19/17 09:07 Plan Activity: advance as tolerated, fall precautions Diet: per dietitian instruction Special Instructions: other (keep HOB >45 deg, Aspiration precautions) Follow up with: PRIMARY CARE, [Primary Care Provider] - 3-5 Days Prescriptions: Levofloxacin [Levaquin TAB] 500 mg PO QDAY #7 tablet
--- NOTE | 2017-02-19 12:22 | Progress Note ---
Assessment and Plan Pneumonia Acute respiratory failure no evidence of PE by V\Q scan Paroxysmal Afib currently in sinus rhythm not on anticoagulation due to recent GI bleed on digoxin and toprol xl for suppression Hx of Ischemic Cardiomyopathy EF improved EF 45-50% on echo 01/2017 He does NOT yet have an internal cardiac defibrillator. Hx of CAD s/p 3 way CABG [facility] 05/2016 reports 3 bypass grafts have remained patent, and he is on medical therapy for small vessel coronary disease. Ejection fraction 25-30%. 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 Subjective Date of service: 02/19/17 Interval history: Patient speaks little Turkmen. No distress noted. Objective Vital Signs Temp Pulse Pulse Pulse Resp Resp BP 02/19/17 09:50 73 158/77 02/19/17 09:28 72 22 02/19/17 09:07 70 20 02/19/17 07:50 97.5 F L 73 20 02/19/17 04:00 98.4 F 77 18 02/19/17 00:17 98.2 F 77 18 02/18/17 23:06 02/18/17 22:00 98 H 02/18/17 21:38 87 16 02/18/17 21:26 02/18/17 21:23 81 16 02/18/17 20:00 98.5 F 95 H 18 02/18/17 18:41 98.4 F 71 12 02/18/17 16:05 85 02/18/17 16:04 86 BP Pulse Ox 02/19/17 09:50 02/19/17 09:28 02/19/17 09:07 97 02/19/17 07:50 158/77 98 02/19/17 04:00 146/77 97 02/19/17 00:17 147/67 97 02/18/17 23:06 97 02/18/17 22:00 02/18/17 21:38 02/18/17 21:26 90 02/18/17 21:23 02/18/17 20:00 149/91 97 02/18/17 18:41 154/79 99 02/18/17 16:05 02/18/17 16:04 - Physical Examination General: No Apparent Distress HEENT: Positive: PERRL Neck: Positive: trachea midline Cardiac: Positive: Reg Rate and Rhythm Lungs: Positive: Decreased Breath Sounds, Rales Extremities: Absent: edema - Labs and Meds CBC 02/19/17 Range/Units 07:40 WBC 8.5 (4.5-11.0) K/mm3 RBC 3.99 (3.65-5.03) M/mm3 Hgb 9.6 L (11.8-15.2) gm/dl Hct 30.9 L (35.5-45.6) % Plt Count 164 (140-440) K/mm3 Comprehensive Metabolic Panel 02/19/17 Range/Units 07:40 Sodium 145 D (137-145) mmol/L Potassium 3.7 (3.6-5.0) mmol/L Chloride 106.2 (98-107) mmol/L Carbon Dioxide 26 (22-30) mmol/L BUN 21 H (9-20) mg/dL Creatinine 0.4 L (0.8-1.5) mg/dL Glucose 124 H (75-100) mg/dL Calcium 8.1 L (8.4-10.2) mg/dL
--- NOTE | 2017-02-19 15:55 | Fluoroscopy Report ---
MODIFIED BARIUM SWALLOW INDICATION: Dysphagia. COMPARISON: None similar. FINDINGS: Fluoroscopy provided by radiologist for speech therapist to assess the swallowing mechanism. Cervical spondylosis. Food items of different consistencies given, though patient unable to swallow well. IMPRESSION: Findings, as above. Please refer to detailed report from speech pathologist. Thank you for the opportunity to participate in this patient's care.
[2017-02-19 16:50] VITALS: BP 148/79
== END 2017-02-19 18:04 | DRG 871 ==
LOC: ED 12:43 → CC1 16:59 → 4A 02-15 13:59
PROVIDERS: ADMIT Internal Medicine; ATTEND Internal Medicine
PROC: 4A033R1 Measurement of Arterial Saturation, Peripheral, Percutaneous Approach (ICD-10-PCS; principal; 2017-02-14)
DX: A41.9 Sepsis, unspecified organism (principal); J96.01 Acute respiratory failure with hypoxia; I50.43 Acute on chronic combined systolic (congestive) and diastolic (congestive) heart failure; J69.0 Pneumonitis due to inhalation of food and vomit; G93.40 Encephalopathy, unspecified; E43 Unspecified severe protein-calorie malnutrition; N17.9 Acute kidney failure, unspecified; I13.0 Hypertensive heart and chronic kidney disease with heart failure and stage 1 through stage 4 chronic kidney disease, or unspecified chronic kidney disease; E87.0 Hyperosmolality and hypernatremia; I74.19 Embolism and thrombosis of other parts of aorta; D50.9 Iron deficiency anemia, unspecified; I25.5 Ischemic cardiomyopathy; K21.9 Gastro-esophageal reflux disease without esophagitis; I25.10 Atherosclerotic heart disease of native coronary artery without angina pectoris; N18.9 Chronic kidney disease, unspecified; E11.22 Type 2 diabetes mellitus with diabetic chronic kidney disease; I48.0 Paroxysmal atrial fibrillation; E87.5 Hyperkalemia; I70.0 Atherosclerosis of aorta; E78.5 Hyperlipidemia, unspecified; Z86.73 Personal history of transient ischemic attack (TIA), and cerebral infarction without residual deficits; Z95.1 Presence of aortocoronary bypass graft; Z98.61 Coronary angioplasty status; Z68.21 Body mass index [BMI] 21.0-21.9, adult
CPT/HCPCS: 36415; 71010; 71275; 74230; 80048; 80053; 80061; 80162; 82140; 82550; 82803; 82962; 83690; 83735; 83880; 84484; 85007; 85025; 85027; 85610; 85730; 87040; 93005; 93010; 94640; 94668; 94760; 96361; 96365; 96367; 96375; G8996-GN; G8997-GN; J0692; J1644; J1815; J2270; J2543; J2930; J3370; J7030; Q9967